=== PATIENT | male | born 1970 | race Caucasian/White ===

== ENCOUNTER 2017-02-20 14:37 | Observation (INO) | payer MEDICARE, OTHER ==
[2017-02-20] MEDS ORDERED: SODIUM CHLORIDE 0.9% 1,000 ML IV ONE (15:27)
[2017-02-20 16:17] LABS: Glucose,Whole Blood 100 mg/dL (75-99)
[2017-02-20 16:25] LABS: Basophils # (A) 0.1 k/uL (0-0.2); Basophils % (A) 1 %; CH 32.9; CHCM 35.2; Eosinophils # (A) 0.1 k/uL (0-0.7); Eosinophils % (A) 1 %; HCT 41.8 % (39.0-53.0); HDW 2.26; HGB 14.7 gm/dL (13.0-17.5); Luc # (Auto) 0.25; Luc % (Auto) 4; Lymphocytes # (A) 1.8 k/uL (1.0-4.8); Lymphocytes % (A) 28 %; MCH 32.9 pg (25.0-35.0); MCHC 35.1 g/dL (31.0-37.0); MCV 93.6 fL (80.0-100.0); Mean Platelet Volume 8.1; Monocytes # (A) 0.6 k/uL (0-1.0); Monocytes % (A) 9 %; Neutrophils # (A) 3.7 k/uL (1.3-7.7); Neutrophils % (A) 58 %; RBC 4.46 m/uL (4.30-5.90); RDW 13.2 % (11.5-15.5); WBC 6.4 k/uL (3.8-10.6); WBC (Perox) 6.12
[2017-02-20 16:31] LABS: ALT 33 U/L (21-72); AST 17 U/L (17-59); Alkaline Phosphatase 92 U/L (38-126); Anion Gap 12 mmol/L; Blood Urea Nitrogen 12 mg/dL (9-20); Calcium 9.3 mg/dL (8.4-10.2); Carbon Dioxide 25 mmol/L (22-30); Chloride 106 mmol/L (98-107); Glucose 104 mg/dL (74-99); Magnesium 2.2 mg/dL (1.6-2.3); Non-African American GFR(MDRD) >60 (>60 ml/min/1.73 sqM); Potassium 4.1 mmol/L (3.5-5.1); Sodium 143 mmol/L (137-145); Total Bilirubin 0.4 mg/dL (0.2-1.3)
--- NOTE | 2017-02-20 16:38 | XR ---
EXAMINATION TYPE: XR chest 2V DATE OF EXAM: 02/20/2017 COMPARISON: 10/16/2015 HISTORY: Altered mental status. Disabled. TECHNIQUE: Frontal and lateral views of the chest are obtained. FINDINGS: There is no heart failure nor confluent pneumonic infiltrate. There are no hilar masses. T here are chest leads. There is no sign of pleural effusion. IMPRESSION: No active cardiopulmonary disease. Normal heart. No change.
--- NOTE | 2017-02-20 17:27 | CT ---
EXAMINATION TYPE: CT brain wo con DATE OF EXAM: 02/20/2017 COMPARISON: 10/18/2015 HISTORY: Patient poor historian. Patient is lethargic. CT DLP: 773.8 mGycm. Automated Exposure Control for Dose Reduction was Utilized. TECHNIQUE: CT scan of the head is performed without contrast. FINDINGS: Ventricles of normal size. There is no mass effect nor midline shift. There is no sign of i ntracranial hemorrhage. The calvarium is intact. IMPRESSION: Negative CT scan of the brain. No change..
[2017-02-20 18:04] LABS: Appearance,Urine Clear (Clear); Bilirubin,Urine Negative (Negative); Glucose,Urine (UA) Negative (Negative); Ketones,Urine Negative (Negative); Leukocyte Esterase,Urine Negative (Negative); Nitrite,Urine Negative (Negative); PH, Urine 6.5 (5.0-8.0); Protein,Urine Negative (Negative); Specific Gravity,Urine 1.014 (1.001-1.035); UA Billing (MACRO vs. MICRO) CHEM; Urobilinogen,Urine <2.0 mg/dL (<2.0)
[2017-02-20] MEDS ORDERED: NALOXONE 0.4 MG/ML 1 ML VIAL IV PRN (18:19)
--- NOTE | 2017-02-20 18:35 | ED ---
Altered Mental Status HPI - General Chief Complaint: Altered Mental Status Stated Complaint: lethargic Time Seen by Provider: 02/20/17 15:21 Source: family, RN notes reviewed Mode of arrival: wheelchair Limitations: no limitations - History of Present Illness Initial Comments: 47-year-old male with past medical history of autism presents with his sister who is his guardian chief complaint of lethargy and generalized weakness. Patient has had a baseline tremor and his sister also noted that his tongue was very dry. The symptoms of worsened over the past 2 days. Patient's sister denies any symptoms of vomiting or diarrhea. There is no history of fever. Patient is nonverbal, according to his sister he does normally have some level of communication. - Related Data Home Medications Medication Instructions Recorded Confirmed Clotrimazole/Betameth Cream 1 applic TOPICAL BID PRN 02/20/17 02/20/17 [Lotrisone] Docusate [Colace] 100 mg PO HS PRN 02/20/17 02/20/17 Fiber Poweder 10 ml PO DAILY 02/20/17 02/20/17 Rosuvastatin [Crestor] 10 mg PO DAILY 02/20/17 02/20/17 risperiDONE [RisperDAL] 2 mg PO HS 02/20/17 02/20/17 Previous Rx's Medication Instructions Recorded LORazepam [Ativan] 1 mg PO BID #14 tab 10/22/15 Allergies Allergy/AdvReac Type Severity Reaction Status Date / Time No Known Allergies Allergy Verified 02/20/17 16:55 Review of Systems ROS Statement: Those systems with pertinent positive or pertinent negative responses have been documented in the HPI. Limitations: ROS unobtainable due to patients medical condition Past Medical History Past Medical History: No Reported History Additional Past Medical History / Comment(s): HIGH CHOLESTEROL; SCOLIOSIS, developmentally disabled, autism History of Any Multi-Drug Resistant Organisms: None Reported Additional Past Surgical History / Comment(s): HEMORROIDECTOMY Past Anesthesia/Blood Transfusion Reactions: No Reported Reaction Past Psychological History: Anxiety Smoking Status: Never smoker Past Alcohol Use History: None Reported Past Drug Use History: None Reported - Past Family History Mother Family Medical History: Diabetes Mellitus Father Family Medical History: Cancer Additional Family Medical History / Comment(s): BONE AND LIVER General Exam Limitations: no limitations General appearance: lethargic Head exam: Present: atraumatic, normocephalic Eye exam: Present: normal appearance, PERRL ENT exam: Present: mucous membranes dry, other (Tongue is very dry and cracked) Neck exam: Absent: meningismus Respiratory exam: Present: normal lung sounds bilaterally. Absent: respiratory distress Cardiovascular Exam: Present: normal rhythm, tachycardia GI/Abdominal exam: Present: soft. Absent: distended, tenderness Extremities exam: Present: normal capillary refill. Absent: pedal edema Neurological exam: Absent: motor sensory deficit (There is no focal neurologic deficit, strength in all 4 extremities is 5 out of 5) Psychiatric exam: Present: depressed, flat affect Skin exam: Present: warm, dry Course Vital Signs 02/20/17 02/20/17 15:06 17:31 Temperature 97.6 F 99.1 F Pulse Rate 101 H 100 Respiratory 16 18 Rate Blood Pressure 149/84 151/83 O2 Sat by Pulse 96 97 Oximetry Medical Decision Making - Medical Decision Making 47-year-old male with history of autism presents with a 2 day history of lethargy, tremor, and dry cracked tongue. History is obtained from the patient' s sister was also his guardian. On examination the patient does appear dehydrated, mucous membranes are very dry, heart rate 100. Laboratory studies including CBC, CMP, TSH, urinalysis are all unremarkable. Chest x-ray shows no acute process, head CT is negative for acute intracranial process. EKG shows normal sinus rhythm, ventricular rate 97, LA interval 134, QS duration 82, QTC 464. Patient is given 1 L normal saline bolus. Reevaluation, patient's sister states he has not improved. He will be brought in for fluid hydration, and repeat evaluation. Diagnosis: generalized weakness, dehydration - Lab Data Result diagrams: 02/20/17 16:03 02/20/17 16:03 Lab Results 02/20/17 02/20/17 02/20/17 Range/Units 16:03 16:03 16:03 WBC 6.4 (3.8-10.6) k/uL RBC 4.46 (4.30-5.90) m/uL Hgb 14.7 (13.0-17.5) gm/dL Hct 41.8 (39.0-53.0) % MCV 93.6 (80.0-100.0) fL MCH 32.9 (25.0-35.0) pg MCHC 35.1 (31.0-37.0) g/dL RDW 13.2 (11.5-15.5) % Plt Count 197 (150-450) k/uL Neutrophils % 58 % Lymphocytes % 28 % Monocytes % 9 % Eosinophils % 1 % Basophils % 1 % Neutrophils # 3.7 (1.3-7.7) k/uL Lymphocytes # 1.8 (1.0-4.8) k/uL Monocytes # 0.6 (0-1.0) k/uL Eosinophils # 0.1 (0-0.7) k/uL Basophils # 0.1 (0-0.2) k/uL Sodium 143 (137-145) mmol/L Potassium 4.1 (3.5-5.1) mmol/L Chloride 106 (98-107) mmol/L Carbon Dioxide 25 (22-30) mmol/L Anion Gap 12 mmol/L BUN 12 (9-20) mg/dL Creatinine 0.80 (0.66-1.25) mg/dL Est GFR (MDRD) Af Amer >60 (>60 ml/min/1.73 sqM) Est GFR (MDRD) Non-Af >60 (>60 ml/min/1.73 sqM) Glucose 104 H (74-99) mg/dL POC Glucose (mg/dL) (75-99) mg/dL POC Glu Merchandise Collector ID Plasma Lactic Acid Gilberto 0.7 (0.7-2.0) mmol/L Calcium 9.3 (8.4-10.2) mg/dL Magnesium 2.2 (1.6-2.3) mg/dL Total Bilirubin 0.4 (0.2-1.3) mg/dL AST 17 (17-59) U/L ALT 33 (21-72) U/L Alkaline Phosphatase 92 (38-126) U/L Ammonia 12 (<30) umol/L Total Protein 7.0 (6.3-8.2) g/dL Albumin 4.1 (3.5-5.0) g/dL TSH 1.050 (0.465-4.680) mIU/L Urine Color Urine Appearance (Clear) Urine pH (5.0-8.0) Ur Specific Volin (1.001-1.035) Urine Protein (Negative) Urine Glucose (UA) (Negative) Urine Ketones (Negative) Urine Blood (Negative) Urine Nitrite (Negative) Urine Bilirubin (Negative) Urine Urobilinogen (<2.0) mg/dL Ur Leukocyte Esterase (Negative) 02/20/17 02/20/17 Range/Units 16:16 17:45 WBC (3.8-10.6) k/uL RBC (4.30-5.90) m/uL Hgb (13.0-17.5) gm/dL Hct (39.0-53.0) % MCV (80.0-100.0) fL MCH (25.0-35.0) pg MCHC (31.0-37.0) g/dL RDW (11.5-15.5) % Plt Count (150-450) k/uL Neutrophils % % Lymphocytes % % Monocytes % % Eosinophils % % Basophils % % Neutrophils # (1.3-7.7) k/uL Lymphocytes # (1.0-4.8) k/uL Monocytes # (0-1.0) k/uL Eosinophils # (0-0.7) k/uL Basophils # (0-0.2) k/uL Sodium (137-145) mmol/L Potassium (3.5-5.1) mmol/L Chloride (98-107) mmol/L Carbon Dioxide (22-30) mmol/L Anion Gap mmol/L BUN (9-20) mg/dL Creatinine (0.66-1.25) mg/dL Est GFR (MDRD) Af Amer (>60 ml/min/1.73 sqM) Est GFR (MDRD) Non-Af (>60 ml/min/1.73 sqM) Glucose (74-99) mg/dL POC Glucose (mg/dL) 100 H (75-99) mg/dL POC Glu Merchandise Collector ID Annette Mark Plasma Lactic Acid Gilberto (0.7-2.0) mmol/L Calcium (8.4-10.2) mg/dL Magnesium (1.6-2.3) mg/dL Total Bilirubin (0.2-1.3) mg/dL AST (17-59) U/L ALT (21-72) U/L Alkaline Phosphatase (38-126) U/L Ammonia (<30) umol/L Total Protein (6.3-8.2) g/dL Albumin (3.5-5.0) g/dL TSH (0.465-4.680) mIU/L Urine Color Yellow Urine Appearance Clear (Clear) Urine pH 6.5 (5.0-8.0) Ur Specific Volin 1.014 (1.001-1.035) Urine Protein Negative (Negative) Urine Glucose (UA) Negative (Negative) Urine Ketones Negative (Negative) Urine Blood Negative (Negative) Urine Nitrite Negative (Negative) Urine Bilirubin Negative (Negative) Urine Urobilinogen <2.0 (<2.0) mg/dL Ur Leukocyte Esterase Negative (Negative) Disposition Clinical Impression: Altered mental status, unspecified, Dehydration Disposition: ADMITTED IP TO THIS [facility] Condition: Stable Referrals: Jef Pires DO [Primary Care Provider] - 1-2 days Decision to Admit Reason: Admit from EC Decision Date: 02/20/17 Decision Time: 18:35
[2017-02-20 19:50] VITALS: RESP 16
[2017-02-20 20:49] VITALS: BMI 25.8
[2017-02-20] MEDS: DEXTROSE 5%-0.45% NACL 1,000 ML IV SCH (20:56)
[2017-02-20] MEDS ORDERED: risperiDONE 2 MG TAB PO SCH (21:00)
[2017-02-20] MEDS: LORazepam 1 MG TAB PO SCH (21:00)
[2017-02-20 22:59] LABS: Glucose,Whole Blood 110 mg/dL (75-99)
[2017-02-21] MEDS: DEXTROSE 5%-0.45% NACL 1,000 ML IV SCH (07:18)
[2017-02-21 08:52] VITALS: TEMP 98.3
[2017-02-21] MEDS: LORazepam 1 MG TAB PO SCH (08:54)
--- NOTE | 2017-02-21 10:14 | P.DS ---
Providers Date of admission: 02/20/17 18:19 Attending physician: Jose L Blankenship Primary care physician: Jef Pires [facility] Hospital Course: Please refer to HPI Patient Condition at Discharge: Stable Plan - Discharge Summary New Discharge Prescriptions: No Action LORazepam [Ativan] 1 mg PO BID #14 tab risperiDONE [RisperDAL] 2 mg PO HS Rosuvastatin [Crestor] 10 mg PO DAILY Clotrimazole/Betameth Cream [Lotrisone] 1 applic TOPICAL BID PRN PRN Reason: Rash Docusate [Colace] 100 mg PO HS PRN PRN Reason: Constipation Fiber Poweder 10 ml PO DAILY Discharge Medication List LORazepam [Ativan] 1 mg PO BID #14 tab 10/22/15 [Rx] Clotrimazole/Betameth Cream [Lotrisone] 1 applic TOPICAL BID PRN 02/20/17 [ History] Docusate [Colace] 100 mg PO HS PRN 02/20/17 [History] Fiber Poweder 10 ml PO DAILY 02/20/17 [History] Rosuvastatin [Crestor] 10 mg PO DAILY 02/20/17 [History] risperiDONE [RisperDAL] 2 mg PO HS 02/20/17 [History] Follow up Appointment(s)/Referral(s): Jef Pires DO [Primary Care Provider] - 3 Days
--- NOTE | 2017-02-21 10:14 | P.HPIM ---
History of Present Illness 47-year-old male with past medical history of autism presents with his sister who is his guardian chief complaint of lethargy and generalized weakness. Patient has had a baseline tremor and his sister also noted that his tongue was very dry. The symptoms of worsened over the past 2 days. Patient's sister denies any symptoms of vomiting or diarrhea. There is no history of fever. Patient is nonverbal, according to his sister he does normally have some level of communication. Patient denied any symptoms at this point of time. And the patient unremarkable and workup for sepsis with the UA, chest x-ray all of which are negative. TSH is essentially within normal limits. He was evaluated by physical therapy and occupational therapy in the recommending a place where he will he can have 24 /7 care. All the workup is essentially negative and patient will be discharged back to longterm with 24/ 7 care. Patient will follow with Dr. Jef Pires as an outpatient. 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 per legal gardian History of Any Multi-Drug Resistant Organisms: None Reported Additional Past Surgical History / Comment(s): HEMORROIDECTOMY Past Anesthesia/Blood Transfusion Reactions: No Reported Reaction Past Psychological History: Anxiety Additional Psychological History / Comment(s): AUTISM Smoking Status: Never smoker Past Alcohol Use History: None Reported Past Drug Use History: None Reported - Past Family History Mother Family Medical History: Diabetes Mellitus Father Family Medical History: Cancer Additional Family Medical History / Comment(s): BONE AND LIVER Medications and Allergies Home Medications Medication Instructions Recorded Confirmed Type Clotrimazole/Betameth Cream 1 applic TOPICAL BID PRN 02/20/17 02/20/17 History [Lotrisone] Docusate [Colace] 100 mg PO HS PRN 02/20/17 02/20/17 History Fiber Poweder 10 ml PO DAILY 02/20/17 02/20/17 History Rosuvastatin [Crestor] 10 mg PO DAILY 02/20/17 02/20/17 History risperiDONE [RisperDAL] 2 mg PO HS 02/20/17 02/20/17 History Allergies Allergy/AdvReac Type Severity Reaction Status Date / Time No Known Allergies Allergy Verified 02/20/17 16:55 Physical Exam Vitals: Vital Signs Temp Pulse Pulse Resp BP BP Pulse Ox 02/21/17 07:00 98.3 F 98 16 136/84 97 02/20/17 22:50 98.5 F 107 H 95 02/20/17 20:24 97.9 F 70 16 118/70 98 02/20/17 20:00 99.1 F 106 H 16 137/77 95 02/20/17 19:48 97.9 F 67 16 128/70 98 02/20/17 17:31 99.1 F 100 18 151/83 97 02/20/17 15:06 97.6 F 101 H 16 149/84 96 Intake and Output 02/20/17 02/21/17 02/21/17 22:59 06:59 14:59 Intake Total 1400 Output Total 200 Balance 1200 Intake: Intake, IV Titration 1000 Amount Sodium Chloride 0.9% 1, 1000 000 ml @ 999 mls/hr IV . Q1H1M ONE Rx#:[id number] Oral 400 Output: Urine 200 Straight 200 Other: Voiding Method Toilet Toilet # Voids 2 Weight 81.647 kg PHYSICAL EXAMINATION: GENERAL: The patient is alert and unable to assess orientation, not in any acute distress. Well developed, well nourished. HEENT: Pupils are round and equally reacting to light. EOMI. No scleral icterus. No conjunctival pallor. Normocephalic, atraumatic. No pharyngeal erythema. No thyromegaly. CARDIOVASCULAR: S1 and S2 present. No murmurs, rubs, or gallops. PULMONARY: Chest is clear to auscultation, no wheezing or crackles. ABDOMEN: Soft, nontender, nondistended, normoactive bowel sounds. No palpable organomegaly. MUSCULOSKELETAL: No joint swelling or deformity. EXTREMITIES: No cyanosis, clubbing, or pedal edema. NEUROLOGICAL: Gross neurological examination did not reveal any new focal deficits. Patient does have generalized weakness which appears to be chronic SKIN: No rashes. Results CBC & Chem 7: 02/20/17 16:03 02/20/17 16:03 Labs: Abnormal Lab Results - Last 24 Hours (Table) 02/20/17 02/20/17 02/20/17 Range/Units 16:03 16:16 22:38 Glucose 104 H (74-99) mg/dL POC Glucose (mg/dL) 100 H 110 H (75-99) mg/dL Thrombosis Risk Factor Assmnt - Choose All That Apply Any of the Below Risk Factors Present?: Yes Each Factor Represents 1 point: Age 41-60 years Other Risk Factors: No Thrombosis Risk Factor Assessment Total Risk Factor Score: 1 Thrombosis Risk Factor Assessment Level: Low Risk Assessment and Plan Plan: #1 generalized weakness and deconditioning: All the workup as mentioned above is negative. Patient will be discharged back to his longterm with [address] [place] [address]. #2 autism: Patient is on antipsychotic medications which we continued and his autism medications. #3 hyperlipidemia: Continue with statin.
[2017-02-21 11:53] VITALS: BP 121/73; PULSE 100
[2017-02-21 11:56] LABS: Glucose,Whole Blood 114 mg/dL (75-99)
== END 2017-02-21 12:00 | disposition home health service (06) ==
LOC: EC 14:37 → 5MS5E 18:19
PROVIDERS: ADMIT Internal Medicine; ATTEND Internal Medicine
DX: R41.82 Altered mental status, unspecified (principal); E86.0 Dehydration; F84.0 Autistic disorder; E78.5 Hyperlipidemia, unspecified; R25.1 Tremor, unspecified; E78.00 Pure hypercholesterolemia, unspecified; M41.9 Scoliosis, unspecified; F41.9 Anxiety disorder, unspecified; Z79.899 Other long term (current) drug therapy; Z83.3 Family history of diabetes mellitus
CPT/HCPCS: 96360 ×2; 99285 ×2; 36415; 93005; 97162; 80053; 84443; 82140; 83605; 83735; 85025; 81003; 71020; 70450; G0378 ×2

== ENCOUNTER → 2017-02-26 | Outpatient (CLI) | payer MEDICARE, OTHER | END | disposition home or self-care (01) | LOC: LABWHC1 15:58 | PROVIDERS: ATTEND Psychiatry & Neurology Psychiatry | DX: Z51.81 Encounter for therapeutic drug level monitoring (principal); Z79.899 Other long term (current) drug therapy | CPT/HCPCS: 36415; 82550 ==

== ENCOUNTER 2018-03-27 21:28 | Day surgery (SDC) | payer MEDICARE, OTHER ==
--- NOTE | 2018-03-27 22:16 | ED ---
General Adult HPI - General Chief complaint: Nausea/Vomiting/Diarrhea Stated complaint: vomiting Time Seen by Provider: 03/27/18 22:06 Source: patient, RN notes reviewed, old records reviewed, Caregiver Mode of arrival: ambulatory Limitations: no limitations - History of Present Illness Initial comments: 48-year-old male says from [facility] with staff member. Patient had an episode of choking earlier while eating dinner. According to staff he did have an episode of cyanosis associated with this. Heimlich maneuver was performed and the patient was able to cough up several small pieces of meat. He did have several episodes of coughing and seemed to be vomiting up some phlegm. Since this episode he has had some water to drink. Patient has history of autism and is unable to contribute to the history. - Related Data Home Medications Medication Instructions Recorded Confirmed Atorvastatin Calcium [Lipitor] 20 mg PO HS 03/27/18 03/27/18 Nystatin 15 gm TP 03/27/18 OLANZapine 7.5 mg PO 03/27/18 Polyethylene Glycol 3350 [Clearlax] 17 gm PO 03/27/18 Sennosides [Senna] 8.6 mg PO 03/27/18 Allergies Allergy/AdvReac Type Severity Reaction Status Date / Time No Known Allergies Allergy Verified 02/20/17 16:55 Review of Systems ROS Statement: Those systems with pertinent positive or pertinent negative responses have been documented in the HPI. ROS Other: All systems not noted in ROS Statement are negative. 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 per legal gardian History of Any Multi-Drug Resistant Organisms: None Reported Additional Past Surgical History / Comment(s): HEMORROIDECTOMY Past Anesthesia/Blood Transfusion Reactions: No Reported Reaction Past Psychological History: Anxiety Smoking Status: Never smoker Past Alcohol Use History: None Reported Past Drug Use History: None Reported - Past Family History Mother Family Medical History: Diabetes Mellitus Father Family Medical History: Cancer Additional Family Medical History / Comment(s): BONE AND LIVER General Exam Limitations: no limitations General appearance: alert, in no apparent distress Head exam: Present: atraumatic, normocephalic Eye exam: Present: normal appearance, PERRL ENT exam: Present: normal exam, mucous membranes dry Neck exam: Present: normal inspection. Absent: tenderness, meningismus Respiratory exam: Present: normal lung sounds bilaterally, stridor. Absent: respiratory distress, wheezes Cardiovascular Exam: Present: regular rate, normal rhythm GI/Abdominal exam: Present: soft. Absent: distended, tenderness Extremities exam: Present: normal inspection, normal capillary refill. Absent: pedal edema Neurological exam: Present: alert. Absent: motor sensory deficit Skin exam: Present: warm, dry, intact. Absent: cyanosis, diaphoretic Course Vital Signs 03/27/18 03/27/18 03/28/18 21:44 23:23 00:07 Temperature 97.8 F 97.7 F Pulse Rate 106 H 94 Respiratory 20 16 16 Rate Blood Pressure 130/93 133/82 O2 Sat by Pulse 93 L 94 L Oximetry 03/28/18 03:13 Temperature Pulse Rate 94 Respiratory 18 Rate Blood Pressure 147/64 O2 Sat by Pulse 98 Oximetry - Reevaluation(s) Reevaluation #1: 03/28/18 02:27 Case discussed with gastroenterology, will plan endoscopy at 6:45 AM. Medical Decision Making - Medical Decision Making 48-year-old male with choking episode, concern for either aspiration or esophageal foreign body. Chest x-ray negative for airspace disease. CT is obtained, does show distal esophageal foreign body with dilated upper esophagus and air-fluid level. Case is discussed with gastroenterology, will plan endoscopy at 6:45 AM. - Lab Data Result diagrams: 03/27/18 22:45 03/27/18 22:45 Lab Results 03/27/18 03/27/18 03/27/18 Range/Units 22:45 22:45 23:30 WBC 14.4 H (3.8-10.6) k/uL RBC 5.13 (4.30-5.90) m/uL Hgb 16.3 (13.0-17.5) gm/dL Hct 47.3 (39.0-53.0) % MCV 92.2 (80.0-100.0) fL MCH 31.7 (25.0-35.0) pg MCHC 34.4 (31.0-37.0) g/dL RDW 12.6 (11.5-15.5) % Plt Count 252 (150-450) k/uL Neutrophils % 86 % Lymphocytes % 9 % Monocytes % 4 % Eosinophils % 0 % Basophils % 0 % Neutrophils # 12.3 H (1.3-7.7) k/uL Lymphocytes # 1.2 (1.0-4.8) k/uL Monocytes # 0.6 (0-1.0) k/uL Eosinophils # 0.1 (0-0.7) k/uL Basophils # 0.0 (0-0.2) k/uL Sodium 143 (137-145) mmol/L Potassium 4.4 (3.5-5.1) mmol/L Chloride 111 H (98-107) mmol/L Carbon Dioxide 21 L (22-30) mmol/L Anion Gap 11 mmol/L BUN 18 (9-20) mg/dL Creatinine 1.00 (0.66-1.25) mg/dL Est GFR (CKD-EPI)AfAm >90 (>60 ml/min/1.73 sqM) Est GFR (CKD-EPI)NonAf 89 (>60 ml/min/1.73 sqM) Glucose 132 H (74-99) mg/dL Plasma Lactic Acid Gilberto 1.3 (0.7-2.0) mmol/L Calcium 9.7 (8.4-10.2) mg/dL Total Bilirubin 0.6 (0.2-1.3) mg/dL AST 22 (17-59) U/L ALT 35 (21-72) U/L Alkaline Phosphatase 118 (38-126) U/L Total Protein 8.1 (6.3-8.2) g/dL Albumin 4.6 (3.5-5.0) g/dL Disposition Clinical Impression: Esophageal foreign body Disposition: ADMITTED IP TO THIS [facility] Condition: Stable Is patient prescribed a controlled substance at d/c from ED?: No Referrals: Derek Sousa MD [Primary Care Provider] - 1-2 days Decision to Admit Reason: Admit from EC Decision Date: 03/28/18 Decision Time: 06:08
[2018-03-27 23:03] LABS: Basophils % (A) 0 %; Eosinophils # (A) 0.1 k/uL (0-0.7); Eosinophils % (A) 0 %; HCT 47.3 % (39.0-53.0); HGB 16.3 gm/dL (13.0-17.5); Lymphocytes # (A) 1.2 k/uL (1.0-4.8); Lymphocytes % (A) 9 %; MCH 31.7 pg (25.0-35.0); MCHC 34.4 g/dL (31.0-37.0); MCV 92.2 fL (80.0-100.0); Mean Platelet Volume 7.7; Monocytes # (A) 0.6 k/uL (0-1.0); Monocytes % (A) 4 %; Neutrophils # (A) 12.3 k/uL (1.3-7.7); Neutrophils % (A) 86 %; Platelet Count 252 k/uL (150-450); RBC 5.13 m/uL (4.30-5.90); RDW 12.6 % (11.5-15.5); WBC 14.4 k/uL (3.8-10.6)
[2018-03-27 23:18] LABS: ALT 35 U/L (21-72); AST 22 U/L (17-59); Albumin 4.6 g/dL (3.5-5.0); Alkaline Phosphatase 118 U/L (38-126); Anion Gap 11 mmol/L; Blood Urea Nitrogen 18 mg/dL (9-20); Calcium 9.7 mg/dL (8.4-10.2); Carbon Dioxide 21 mmol/L (22-30); Chloride 111 mmol/L (98-107); Glucose 132 mg/dL (74-99); Potassium 4.4 mmol/L (3.5-5.1); Sodium 143 mmol/L (137-145); Total Bilirubin 0.6 mg/dL (0.2-1.3); Total Protein 8.1 g/dL (6.3-8.2)
[2018-03-27] MEDS ORDERED: AMPICILLIN-SULBACTAM 3 GM in SODIUM CHLORIDE 0.9% 100 ML IVPB STA (23:23)
--- NOTE | 2018-03-28 00:48 | XR ---
EXAMINATION TYPE: XR chest 2V DATE OF EXAM: 03/28/2018 COMPARISON: 02/20/2017 HISTORY: Vomiting TECHNIQUE: Frontal and lateral views of the chest are obtained. FINDINGS: Heart and mediastinum are normal. Lungs are clear. Costophrenic angles are clear. The bony thorax appears intact. IMPRESSION: No active cardiopulmonary disease. Normal heart. No change.
[2018-03-28] MEDS ORDERED: GLUCAGON 1 MG/ML VIAL IVP STA (00:58)
--- NOTE | 2018-03-28 01:42 | CT ---
EXAMINATION TYPE: CT chest wo con DATE OF EXAM: 03/28/2018 COMPARISON: None HISTORY: Possible esophageal obstruction CT DLP: 459.30 mGycm. Automated Exposure Control for Dose Reduction was Utilized. TECHNIQUE: CT scan of the thorax is performed without IV contrast. FINDINGS: The lungs are clear of consolidation. There is no pleural effusion. Heart size is normal. There is no pericardial effusion. There is a dilated air and fluid-filled esophagus. Esophagus is enlarged down to the gastroesophageal junction. Stomach has normal size. There is no evidence of pneumothorax. Bony thorax is intact. IMPRESSION: Dilated thoracic esophagus with fluid. This is suggestive of distal esophageal obstructio n. Nature of obstruction is not demonstrated on this exam with no contrast. If there is persisting cl inical indication esophagram with barium would be useful to show the distal esophagus to better advan tage.
[2018-03-28] MEDS ORDERED: NALOXONE 0.4 MG/ML 1 ML VIAL IV PRN (06:10)
[2018-03-28] MEDS ORDERED: SODIUM CHLORIDE 0.9% 1,000 ML IV ONE (06:12)
[2018-03-28] MEDS ORDERED: LIDOCAINE 1% INJ 10MG/ML (20 ML MDV) ONE ×2 (07:00→09:00)
[2018-03-28] MEDS ORDERED: PROPOFOL 10 MG/ML 20 ML VIAL IV ONE ×2 (07:00→09:00)
[2018-03-28 07:05] VITALS: TEMP 97.1
--- NOTE | 2018-03-28 07:08 | P.CONS ---
History of Present Illness - Reason for Consult Consult date: 03/28/18 Foreign body Requesting physician: Derek Sousa - Chief Complaint Food stuck in esophagus - History of Present Illness The patient is a 48-year-old male with a known history of scoliosis and severe autism who lives in a long term and was brought to the emergency room for evaluation after choking while eating dinner this evening. The patient was eating ribs and Mayco sprouts when he had an episode of choking. According to documentation the patient became cyanotic and the Heimlich removal was performed. In the emergency department history provided was limited so a computed tomography scan was performed showed a fluid-filled esophagus suggestive of a foreign body. The patient had multiple episodes of coughing productive of phlegm. In the emergency department he was unable to tolerate his secretions. Per the patient's sister and legal guardian he has not had episodes of dysphagia or food sitting in the past. She reports that at the facility states that the food is chopped small leading and he has not required a hospital visit or similar episode in the past. No history of reflux. Past endoscopic history: No prior history of endoscopy. Past medical history: Scoliosis, autism, hyperlipidemia, anxiety Past surgical history: Hemorrhoidectomy Social history: No tobacco or alcohol use, the patient lives in a long term. Family history: Significant for diabetes mellitus in the patient's mother Review of Systems REVIEW OF SYSTEMS: Taken from the patient's sister and legal guardian due to patient's underlying autism and inability to provide a history on his own. CARDIOPULMONARY: No chest pain or shortness of breath. GENITOURINARY: No dysuria or hematuria. MUSCULOSKELETAL: No weakness reported. SKIN: Denies any new rashes or lesions. PSYCHIATRIC: Denies any depression or anxiety. NEUROLOGY: Denies headache, denies any new focal deficits. EARS: No tinnitus or new hearing loss. NOSE: No discharge. EYES: No pain in eyes or change in vision. CONSTITUTIONAL: No recent weight loss. No fever, chills, night sweats. Past Medical History Past Medical History: Hyperlipidemia Additional Past Medical History / Comment(s): SCOLIOSIS, developmentally disabled, autism, mentality of a 6 year old per legal gardian History of Any Multi-Drug Resistant Organisms: None Reported Additional Past Surgical History / Comment(s): HEMORROIDECTOMY Past Anesthesia/Blood Transfusion Reactions: No Reported Reaction Past Psychological History: Anxiety Smoking Status: Never smoker Past Alcohol Use History: None Reported Past Drug Use History: None Reported - Past Family History Mother Family Medical History: Diabetes Mellitus Father Family Medical History: Cancer Additional Family Medical History / Comment(s): BONE AND LIVER Medications and Allergies Home Medications Medication Instructions Recorded Confirmed Type Atorvastatin Calcium [Lipitor] 20 mg PO HS 03/27/18 03/28/18 History Nystatin 15 gm TP BID 03/27/18 03/28/18 History OLANZapine 7.5 mg PO DAILY 03/27/18 03/28/18 History Polyethylene Glycol 3350 [Clearlax] 17 gm PO DAILY 03/27/18 03/28/18 History Sennosides [Senna] 8.6 mg PO HS 03/27/18 03/28/18 History Allergies Allergy/AdvReac Type Severity Reaction Status Date / Time No Known Allergies Allergy Verified 02/20/17 16:55 Physical Exam Vitals: Vital Signs Temp Pulse Resp BP Pulse Ox 03/28/18 06:17 120 H 18 148/98 95 03/28/18 03:13 94 18 147/64 98 03/28/18 00:07 97.7 F 94 16 133/82 94 L 03/27/18 23:23 16 03/27/18 21:44 97.8 F 106 H 20 130/93 93 L Intake and Output 03/27/18 03/27/18 03/28/18 14:59 22:59 06:59 Other: Weight 82.554 kg On physical examination, patient appears comfortable in no apparent distress. HEENT: Unremarkable. Conjunctivae pink. Sclerae anicteric.No conjunctival injection. Oral cavity no lesions. NECK: Trachea midline, no gross abnormalities. CHEST: Clear to auscultation. HEART: Regular rate and rhythm. ABDOMEN: Soft. Bowel sounds are positive. No organomegaly. EXTREMITIES: No pedal edema. SKIN: No rashes. NEUROLOGIC: Alert and oriented. No focal deficits. Results CBC & Chem 7: 03/27/18 22:45 03/27/18 22:45 Labs: Abnormal Lab Results - Last 24 Hours (Table) 03/27/18 03/27/18 Range/Units 22:45 22:45 WBC 14.4 H (3.8-10.6) k/uL Neutrophils # 12.3 H (1.3-7.7) k/uL Chloride 111 H (98-107) mmol/L Carbon Dioxide 21 L (22-30) mmol/L Glucose 132 H (74-99) mg/dL CT scan - chest: report reviewed (Fluid-filled esophagus suggestive of foreign body obstruction.) Assessment and Plan (1) Esophageal foreign body Narrative/Plan: This is a 48-year-old male without any previous history of dysphagia or food impaction presents after eating ribs and brussel sprouts during which she developed an episode of cyanosis and coughing and was subsequently unable to tolerate secretions. The patient has no prior history of dysphagia or food impaction, no history of asthma or ALLERGIES. In the emergency department a computed tomography scan was performed due to the limited history which was able to be obtained which showed a fluid-filled esophagus with suggestion of foreign body. Current Visit: Yes Status: Acute Code(s): T18.108A - UNSP FOREIGN BODY IN ESOPHAGUS CAUSING OTH INJURY, INIT SNOMED Code(s): 67152291 Plan: Nothing by mouth Plan for emergent EGD with foreign body removal Need for dilation, biopsies and PPI therapy will be decided during the procedure If stable patient will be okay for discharge home and follow up with gastroenterology
[2018-03-28] MEDS ORDERED: IV FLUID CONTINUATION 300 ML IV ONE (07:13)
[2018-03-28] MEDS ORDERED: LACTATED RINGERS 1,000 ML IV ONE ×2 (07:55→11:00)
--- NOTE | 2018-03-28 08:45 | XR ---
EXAMINATION TYPE: XR chest 1V portable DATE OF EXAM: 03/28/2018 Comparison: 03/28/2018, earlier today Clinical History: 48-year-old male, pain, food bolus aspiration. Findings: Heart normal size. Aorta within normal limits. Mild diffuse interstitial prominence persists. Peribro nchial cuffing is also noted. Increasing focal patchy left basilar opacity. There may be a trace left effusion now. Impression: New patchy left basilar atelectasis or developing infiltrate and possible new trace left pleural effu garett.
[2018-03-28] MEDS ORDERED: SUCCINYLCHOLINE CHLORIDE 100 MG/5 ML SYR IV ONE (09:00)
[2018-03-28] MEDS ORDERED: fentaNYL (PF) 50 MCG/ML 2 ML AMP ONE (09:00)
[2018-03-28] MEDS ORDERED: MEPERIDINE 50 MG/ML SYRINGE IVP ONE (10:00)
--- NOTE | 2018-03-28 10:44 | P.PCN ---
Date of Procedure: 03/28/18 Description of Procedure: BRIEF HISTORY: Patient is a 48-year-old, pleasant, male with a known history of scoliosis, autism and constipation who presented to the hospital with complaints of food stuck in his esophagus. The patient had been eating ribs and Brussel sprouts at his skilled nursing when the event occurred. Per the patient' s sister and ago guardian this type of present has not occurred in the past. No history of dysphagia or reflux disease. PROCEDURE PERFORMED: Esophagogastroduodenoscopy with foreign body removal. PREOPERATIVE DIAGNOSIS: Foreign body, food impaction. IV sedation per anesthesia. PROCEDURE: After informed consent was obtained, the patient was brought into the endoscopy unit. IV sedation was administered by Anesthesia under continuous monitoring. Initially the Olympus GIF-180 video endoscope was inserted into the mouth. Esophagus intubated without any difficulty. A copious amount of food was found in the distal esophagus at approximately 35 cm. Multiple attempts were made to gently push the food from the esophagus into the stomach however these were unsuccessful. A rat-toothed forceps within used to remove pieces of the impacted food in a piecemeal spell. At this point the patient oxygen saturation dropped to approximately 85%. At the advisement of the anesthesia team was decided that the patient would be intubated for the remainder of the procedure. The patient was brought to the operating room and intubated. The procedure was resumed. At this time a Duque net was employed to remove some of the debris. Graspers were then used to successfully remove a large piece of the impacted food. At this time the stomach was able to be intubated. The remainder of the food in the esophagus was pushed into the stomach. The GE junction located at approximately 40 cm was noted to be edematous, erythematous likely as a result of the impacted food. Biopsies were taken. The scope was then gradually advanced into the stomach and duodenum and carefully examined. The bulb and the second part of the duodenum appeared normal. The scope at this time was withdrawn to the stomach, adequately insufflated with air, and upon careful examination, mucosa of the antrum, body, cardia and the fundus appeared normal. The food which had been advanced from the esophagus into the stomach was then noted on retroflexion. The scope was then withdrawn into the esophagus. The esophagus appeared tortuous, but otherwise grossly normal. There were no erosions or ulcerations seen and the patient tolerated the procedure well. IMPRESSION: 1. Esophageal food impaction, with successful removal of food. 2. Erythematous, edematous GE junction at approximately 40 cm likely secondary to above-mentioned food impaction, biopsied. 3. Tortuous esophagus RECOMMENDATIONS: The findings of this examination were discussed with the patient and his sister, who acts as his legal guardian. The patient is okay to be discharged home. He should remain on clear liquids today and tomorrow. His diet should then be advanced as tolerated, and he should continue on a chopped diet with fluids taken with food. A prescription was also given for Protonix 40 mg twice a day. The patient should follow-up in the gastroenterology clinic in 2 weeks. Repeat endoscopy in 6-8 weeks for better evaluation of the GE junction and to ensure resolution of changes noted above.
[2018-03-28 10:47] VITALS: RESP 18
[2018-03-28 12:10] VITALS: BP 123/80; PULSE 110
--- NOTE | 2018-03-28 12:11 | P.CNPUL ---
History of Present Illness Consult date: 03/28/18 Requesting physician: Migue Butler Reason for consult: dyspnea, hypoxemia Chief complaint: Food impaction History of present illness: This is a 48-year-old gentleman who resides in a half-way. He has a history of autism, developmental delay, scoliosis, hyperlipidemia. He was brought here to the emergency room last evening after the patient had an episode of choking while eating dinner. He was cyanotic. The Heimlich maneuver was performed and the patient did cough up several small pieces of meat. He did have several episodes of coughing and vomiting up phlegm as well. He was able to tolerate some water following the episode. Chest x-ray showed no evidence of aspiration or other abnormalities. A computed tomography scan of the chest did reveal a dilated thoracic esophagus with fluid suggestive of distal esophageal obstruction. He did undergo EGD earlier today and had undergone a successful removal of food impaction. During the procedure however the patient did develop some hypoxemia and there was concern regarding possible aspiration. He was temporarily intubated and they were able to complete the EGD. He was also found to have erythematous, edematous GE junction and a tortuous esophagus. He was seen and evaluated today in the recovery room by Dr. Reddy. Chest x-ray was reviewed. No clear evidence of aspiration. The patient now has saturations of 97% on room air. Lungs are clear. Review of Systems ROS unobtainable: due to mental status Past Medical History Past Medical History: Hyperlipidemia Additional Past Medical History / Comment(s): SCOLIOSIS, developmentally disabled, autism, mentality of a 6 year old per legal gardian History of Any Multi-Drug Resistant Organisms: None Reported Additional Past Surgical History / Comment(s): HEMORROIDECTOMY Past Anesthesia/Blood Transfusion Reactions: No Reported Reaction Past Psychological History: Anxiety Smoking Status: Never smoker Past Alcohol Use History: None Reported Past Drug Use History: None Reported - Past Family History Mother Family Medical History: Diabetes Mellitus Father Family Medical History: Cancer Additional Family Medical History / Comment(s): BONE AND LIVER Medications and Allergies Home Medications Medication Instructions Recorded Confirmed Type Atorvastatin Calcium [Lipitor] 20 mg PO HS 03/27/18 03/28/18 History Nystatin 15 gm TP BID 03/27/18 03/28/18 History OLANZapine 7.5 mg PO DAILY 03/27/18 03/28/18 History Polyethylene Glycol 3350 [Clearlax] 17 gm PO DAILY 03/27/18 03/28/18 History Sennosides [Senna] 8.6 mg PO HS 03/27/18 03/28/18 History Allergies Allergy/AdvReac Type Severity Reaction Status Date / Time No Known Allergies Allergy Verified 02/20/17 16:55 Physical Exam Vitals: Vital Signs Temp Pulse Pulse Pulse Resp BP BP 03/28/18 11:45 117 H 18 132/87 03/28/18 11:15 100 18 128/73 03/28/18 11:00 94 18 119/74 03/28/18 10:45 95 18 122/78 03/28/18 10:30 88 20 124/76 03/28/18 10:15 87 18 123/72 03/28/18 10:02 97.1 F L 87 16 119/76 03/28/18 08:41 81 18 122/86 03/28/18 07:02 97.1 F L 94 18 131/71 03/28/18 06:17 120 H 18 148/98 03/28/18 03:13 94 18 147/64 03/28/18 00:07 97.7 F 94 16 133/82 03/27/18 23:23 16 03/27/18 21:44 97.8 F 106 H 20 130/93 Pulse Ox 03/28/18 11:45 96 03/28/18 11:15 97 03/28/18 11:00 95 03/28/18 10:45 95 03/28/18 10:30 99 03/28/18 10:15 99 03/28/18 10:02 98 03/28/18 08:41 97 03/28/18 07:02 95 03/28/18 06:17 95 03/28/18 03:13 98 03/28/18 00:07 94 L 03/27/18 23:23 03/27/18 21:44 93 L Intake and Output 03/27/18 03/28/18 03/28/18 22:59 06:59 14:59 Intake Total 1000 Balance 1000 Intake: IV 1000 Other: Weight 82.554 kg GENERAL EXAM: Alert, active, comfortable in no apparent distress. HEAD: Normocephalic. EYES: Normal reaction of pupils, equal size. NOSE: Clear with pink turbinates. THROAT: No erythema or exudates. NECK: No masses, no JVD. CHEST: No chest wall deformity. LUNGS: Equal air entry with no crackles, wheeze, rhonchi or dullness. CVS: S1 and S2 normal with no audible murmur, regular rhythm. ABDOMEN: No hepatosplenomegaly, normal bowel sounds, no guarding or rigidity. SPINE: No scoliosis or deformity SKIN: No rashes CENTRAL NERVOUS SYSTEM: No focal deficits, tone is normal in all 4 extremities. EXTREMITIES: There is no peripheral edema. No clubbing, no cyanosis. Peripheral pulses are intact. Results - Laboratory Findings CBC and BMP: 03/27/18 22:45 03/27/18 22:45 Abnormal lab findings: Abnormal Labs 03/27/18 03/27/18 22:45 22:45 WBC 14.4 H Neutrophils # 12.3 H Chloride 111 H Carbon Dioxide 21 L Glucose 132 H - Diagnostic Findings Chest x-ray: image reviewed Assessment and Plan Assessment: Impression: #1 Food impaction of the esophagus following choking during dinner. He is status post EGD with removal of the food impaction. #2 Acute hypoxic respiratory failure secondary to sedation and EGD procedure. Recovered. No evidence of aspiration. #3 Autism with developmental delay. #4 Hyperlipidemia. Plan: The patient was seen and evaluated by Dr. Reddy. Chest x-ray and labs were reviewed. Patient's lungs are clear. No clear evidence of aspiration. We will prescribe Augmentin empirically for 1 week. He is cleared for discharge. I, the cosigning physician, performed a history & physical examination of the patient. Lungs sounds are clear. Maintaining good O2 saturations in the 90s on room air. I discussed the assessment and plan of care with my nurse practitioner, Lilly Beckwith. I attest to the above note as dictated by her. Time with Patient: Greater than 30
== END 2018-03-28 12:51 | disposition home or self-care (01) ==
LOC: EC 21:28 → EEVIPCON 21:28 → 3OBS 03-28 06:10 → UNDOADMOB 03-28 06:10 → EC 03-28 12:51
PROVIDERS: ATTEND Emergency Medicine
DX: T18.128A Food in esophagus causing other injury, initial encounter (principal); K22.8 Other specified diseases of esophagus; K29.70 Gastritis, unspecified, without bleeding; F84.0 Autistic disorder; Z79.899 Other long term (current) drug therapy; E78.5 Hyperlipidemia, unspecified; M41.9 Scoliosis, unspecified; F41.9 Anxiety disorder, unspecified
CPT/HCPCS: 36415; 88305; 80053; 83605; 85025; 87040; 71045; 71046; 71250; 43239; 43247; J1610; J2175; J2001; J3010; J0295; J0330; J2704

== ENCOUNTER → 2018-04-14 | Day surgery (SDC) | payer MEDICARE, OTHER ==
[2018-04-12 11:28] VITALS: BMI 28.3
[~2018-04-14] MED LIST: LACTATED RINGERS 1,000 ML IV SCH; LIDOCAINE 1% 20 ML VIAL (10MG/ML) FOR IV START SQ ONE; LIDOCAINE 1% INJ 10MG/ML (20 ML MDV) ONE; PROPOFOL 10 MG/ML 20 ML VIAL IV ONE
[2018-04-14 07:41] VITALS: RESP 16; TEMP 97.3
--- NOTE | 2018-04-14 09:06 | P.PCN ---
Date of Procedure: 04/14/18 Procedure(s) Performed: Procedure: Total colonoscopy. Preoperative diagnosis: Intermittent rectal bleeding. Postoperative diagnosis: Low-grade internal hemorrhoids without evidence of bleeding at the time of this exam. Preparation: HalfLytely prep. Sedation: Was provided by anesthesia. Brief clinical history: The patient is a 48-year-old male who is scheduled for this evaluation because of intermittent rectal bleeding. The patient has autism and scoliosis and has had a recent upper endoscopy for removal of impacted piece of meat. No significant pathology were noted. Procedure: With the patient on his left lateral decubitus position and after informed consent and adequate sedation, the perianal area was inspected and it did not show any fissures or fistulas. There were no masses felt on digital rectal examination. The Olympus CFQ 160L video colonoscope was then inserted in the rectum in the usual fashion and advanced to the cecum. The preparation was good. The mucosa appeared healthy. No polyps or tumors were seen or any obvious diverticular disease. I retroflexed the endoscope in the rectum before the endoscope was withdrawn. Low-grade internal hemorrhoids were noted with no evidence of bleeding. The patient tolerated the procedure well. Plan: The patient and his sister were reassured. Discussed dietary measures and local care for hemorrhoids. For screening for colon cancer, I would recommend repeat exam in 10 years.
[2018-04-14 09:18] VITALS: BP 131/84; PULSE 66
== END ==
LOC: ORWHC2ENDO 07:18
DX: K92.1 Melena (principal); K64.8 Other hemorrhoids; F84.0 Autistic disorder; M41.9 Scoliosis, unspecified; E78.5 Hyperlipidemia, unspecified; Z79.899 Other long term (current) drug therapy
CPT/HCPCS: 45378; J2001; J2704

== ENCOUNTER 2018-09-03 16:50 | Emergency (ER) | payer MEDICARE, OTHER ==
[2018-09-03 17:10] VITALS: BP 132/70; RESP 18
[2018-09-03] MEDS ORDERED: ACETAMINOPHEN TAB 500 MG TAB PO STA (17:58)
--- NOTE | 2018-09-03 17:58 | ED ---
General Adult HPI - General Chief complaint: Upper Respiratory Infection Stated complaint: FEVER, RT EAR, CONGESTION Time Seen by Provider: 09/03/18 17:40 Source: patient, RN notes reviewed Mode of arrival: ambulatory Limitations: no limitations - History of Present Illness Initial comments: 48-year-old male with a past medical history of GERD, hyperlipidemia, autism presents to the emergency department for a chief complaint of cough 4 days. Family member states patient has had a dry cough. He has also had moderate fevers on and off up to 102. He has been receiving Tylenol. Patient has also been complaining of a sore throat as well as left ear pain for the past 4 days. She states she has been eating and drinking normally and the facility aware he lives is making sure he is drinking according to the family member. Patient has not been complaining of chest pain or shortness of breath. No nausea vomiting or diarrhea. Patient has no other complaints at this time including shortness of breath, chest pain, abdominal pain, nausea or vomiting, headache, or visual changes. - Related Data Home Medications Medication Instructions Recorded Confirmed Atorvastatin Calcium [Lipitor] 20 mg PO DAILY@209903/27/18 04/12/18 OLANZapine 7.5 mg PO DAILY@209903/27/18 04/12/18 Polyethylene Glycol 3350 [Clearlax] 17 gm PO QAM 03/27/18 04/12/18 Sennosides [Senna] 2 tab PO HS 03/27/18 04/12/18 Carbamide Peroxide [Debrox Otic] 4 drops BOTH EARS BID 04/12/18 04/12/18 Ergocalciferol (Vitamin D2) 50,000 unit PO WEEKLY 04/12/18 04/12/18 [Vitamin D2] Pantoprazole [Protonix] 40 mg PO 0800,1700 04/12/18 04/12/18 Previous Rx's Medication Instructions Recorded Azithromycin [Zithromax] 500 ml PO DIRECTED 5 Days ml 09/03/18 Allergies Allergy/AdvReac Type Severity Reaction Status Date / Time No Known Allergies Allergy Verified 09/03/18 17:05 Review of Systems ROS Statement: Those systems with pertinent positive or pertinent negative responses have been documented in the HPI. ROS Other: All systems not noted in ROS Statement are negative. Past Medical History Past Medical History: GERD/Reflux, Hyperlipidemia Additional Past Medical History / Comment(s): AUTISM, MENTALLY LIKE A 6 YEAR OLD.,NON-VERBAL (WILL ANSWER YES TO ALL QUESTIONS).,SCOLIOSIS, SCHUFFLES WHEN HE WALKS., RECENT EGD UNDER ANESTHESIA TO REMOVE FOOD THAT WAS STUCK IN HIS THROAT (03/28/18). , RESIDES AT [facility] (PHONE # )., HAVING OCCASIONAL BLOOD IN STOOLS., LEGAL GUARDIAN IS HIS SISTER- LIBIA LEADER # [phone]. History of Any Multi-Drug Resistant Organisms: None Reported Additional Past Surgical History / Comment(s): HEMORROIDECTOMY, EGD WITH ANESTHESIA. Past Anesthesia/Blood Transfusion Reactions: No Reported Reaction Past Psychological History: Anxiety Smoking Status: Never smoker Past Alcohol Use History: None Reported Past Drug Use History: None Reported - Past Family History Mother Family Medical History: Diabetes Mellitus Father Family Medical History: Cancer Additional Family Medical History / Comment(s): BONE AND LIVER General Exam Limitations: no limitations General appearance: alert, in no apparent distress Head exam: Present: atraumatic, normocephalic, normal inspection Eye exam: Present: normal appearance, PERRL, EOMI. Absent: scleral icterus, conjunctival injection, periorbital swelling ENT exam: Present: normal exam, normal oropharynx, mucous membranes moist. Absent: TM's normal bilaterally (cerumen impaction noted bilat) Neck exam: Present: normal inspection, full ROM. Absent: tenderness, meningismus, lymphadenopathy Respiratory exam: Present: normal lung sounds bilaterally. Absent: respiratory distress, wheezes, rales, rhonchi, stridor Cardiovascular Exam: Present: regular rate, normal rhythm, normal heart sounds. Absent: systolic murmur, diastolic murmur, rubs, gallop, clicks GI/Abdominal exam: Present: soft, normal bowel sounds. Absent: distended, tenderness, guarding, rebound, rigid Neurological exam: Present: alert, oriented X3, CN II-XII intact Psychiatric exam: Present: normal affect, normal mood Course Vital Signs 09/03/18 09/03/18 17:07 19:05 Temperature 98.8 F 98.9 F Pulse Rate 104 H 98 Respiratory 18 18 Rate Blood Pressure 132/70 O2 Sat by Pulse 95 Oximetry Medical Decision Making - Medical Decision Making 48-year-old male presents for cough and fever 4 days. Patient is well- appearing on exam. Patient is autistic and family members answering questions. Patient does not have a fever here in the emergency department but was given Tylenol. Chest x-ray was reviewed both image and report and are negative for any infiltration or pneumonia. Strep is negative. Influenza A is positive. Patient is outside of the window for Tamiflu so this will not be given. Patient is also complaining of left ear pain, there is cerumen impaction. I did offer to flush this but family member states a physician comes to the house to do this and she would rather have him do this. However as I cannot see the tympanic membrane he will be treated with antibiotic for possible otitis media. I did also offer to have Dr. Blake see the patient but feeling member states she does not need this and would rather take him home now. Patient is eating applesauce in the emergency department and has been tolerating liquids at home. Did discuss strict return parameters such as not tolerating oral intake or other worsening symptoms. - Lab Data Lab Results 09/03/18 09/03/18 Range/Units 18:20 18:20 Influenza Type A RNA Detected H (Not Detectd) Influenza Type B (PCR) Not Detected (Not Detectd) Group A Strep Rapid Negative (Negative) Disposition Clinical Impression: Influenza A, Ear pain, left Disposition: HOME SELF-CARE Condition: Good Instructions (If sedation given, give patient instructions): Influenza (ED), Ear Infection (ED) Additional Instructions: Please take amoxicillin as directed. Please give Motrin and Tylenol for fever. Make sure patient is drinking plenty of fluids. The patient has worsening symptoms or is not tolerating solids or liquids then return to the emergency department. Prescriptions: Azithromycin [Zithromax] 500 ml PO DIRECTED 5 Days ml Is patient prescribed a controlled substance at d/c from ED?: No Referrals: Derek Sousa MD [Primary Care Provider] - 1-2 days Time of Disposition: 19:51
--- NOTE | 2018-09-03 18:55 | XR ---
EXAMINATION TYPE: XR chest 2V DATE OF EXAM: 09/03/2018 COMPARISON: Chest x-ray and CT chest March 28, 2018 HISTORY: Cough and congestion with chest pain TECHNIQUE: Frontal and lateral views of the chest are obtained. FINDINGS: There is some chronic parenchymal change without suspicious focal air space opacity, pleur al effusion, or pneumothorax seen. The cardiac silhouette size is within normal limits. Underlying l evoconvex scoliosis centered in the upper lumbar spine is redemonstrated. IMPRESSION: No acute cardiopulmonary process.
[2018-09-03 19:05] VITALS: PULSE 98; TEMP 98.9
[2018-09-03] MEDS ORDERED: AZITHROMYCIN 1,200 MG/30 ML BOTTLE PO STA (20:04)
== END 2018-09-03 20:32 | disposition home or self-care (01) ==
LOC: EC 16:50
DX: J10.1 Influenza due to other identified influenza virus with other respiratory manifestations (principal); H92.02 Otalgia, left ear; K21.9 Gastro-esophageal reflux disease without esophagitis; E78.5 Hyperlipidemia, unspecified; F84.0 Autistic disorder; F41.9 Anxiety disorder, unspecified; Z79.899 Other long term (current) drug therapy
CPT/HCPCS: 71046; 87081; 87430; 87502; 99283

== ENCOUNTER 2018-09-19 18:22 | Observation (INO) | payer MEDICARE, OTHER ==
[2018-09-19] MEDS ORDERED: SODIUM CHLORIDE 0.9% 500 ML 500 ML IV STA (18:42)
[2018-09-19 19:21] LABS: Basophils # (A) 0.1 k/uL (0-0.2); Basophils % (A) 1 %; Eosinophils % (A) 1 %; HCT 39.6 % (39.0-53.0); HGB 13.3 gm/dL (13.0-17.5); Lymphocytes # (A) 2.5 k/uL (1.0-4.8); Lymphocytes % (A) 39 %; MCH 31.4 pg (25.0-35.0); MCHC 33.7 g/dL (31.0-37.0); MCV 93.2 fL (80.0-100.0); Mean Platelet Volume 8.1; Monocytes # (A) 0.5 k/uL (0-1.0); Monocytes % (A) 8 %; Neutrophils # (A) 3.1 k/uL (1.3-7.7); Neutrophils % (A) 49 %; Platelet Count 279 k/uL (150-450); RBC 4.25 m/uL (4.30-5.90); RDW 13.6 % (11.5-15.5); WBC 6.4 k/uL (3.8-10.6)
[2018-09-19 19:33] LABS: INR 1.1 (<1.2); Partial Thromboplastin Time 25.2 sec (22.0-30.0); Prothrombin Time 11.9 sec (9.0-12.0)
[2018-09-19 19:43] LABS: ALT 34 U/L (21-72); AST 29 U/L (17-59); Albumin 3.4 g/dL (3.5-5.0); Alkaline Phosphatase 70 U/L (38-126); Anion Gap 6 mmol/L; Blood Urea Nitrogen 13 mg/dL (9-20); Calcium 8.5 mg/dL (8.4-10.2); Carbon Dioxide 24 mmol/L (22-30); Chloride 109 mmol/L (98-107); Creatine Kinase 366 U/L (55-170); Glucose 88 mg/dL (74-99); Magnesium 2.1 mg/dL (1.6-2.3); Potassium 4.5 mmol/L (3.5-5.1); Sodium 139 mmol/L (137-145); Total Bilirubin 0.9 mg/dL (0.2-1.3); Total Protein 6.5 g/dL (6.3-8.2)
--- NOTE | 2018-09-19 19:48 | ED ---
General Adult HPI - General Chief complaint: Weakness Stated complaint: Poss UTI Time Seen by Provider: 09/19/18 18:41 Source: patient, RN notes reviewed, old records reviewed Mode of arrival: ambulatory Limitations: no limitations - History of Present Illness Initial comments: 48-year-old male history of autism presents with increased generalized weakness and lethargy. Patient is currently residing at [facility] home. He is accompanied by his family member states that he's had increased generalized weakness over the past one week. He was evaluated and treated for ear infection, he's been on an unknown antibiotic for the past week. Patient is unable to to indicate exact details of his history. He did complain of some left ear pain. No history of vomiting or diarrhea. No pain complaints. No documented fever. Patient was noted that patient's urine had become less frequent and was very dark. - Related Data Home Medications Medication Instructions Recorded Confirmed Atorvastatin Calcium [Lipitor] 20 mg PO DAILY@2100 03/27/18 04/12/18 OLANZapine 7.5 mg PO DAILY@209903/27/18 04/12/18 Polyethylene Glycol 3350 [Clearlax] 17 gm PO QAM 03/27/18 04/12/18 Sennosides [Senna] 2 tab PO HS 03/27/18 04/12/18 Carbamide Peroxide [Debrox Otic] 4 drops BOTH EARS BID 04/12/18 04/12/18 Ergocalciferol (Vitamin D2) 50,000 unit PO WEEKLY 04/12/18 04/12/18 [Vitamin D2] Pantoprazole [Protonix] 40 mg PO 0800,1700 04/12/18 04/12/18 Previous Rx's Medication Instructions Recorded Azithromycin [Zithromax] 250 mg PO DAILY 4 Days ml 09/03/18 Azithromycin [Zithromax] 500 ml PO DIRECTED 5 Days ml 09/03/18 Allergies Allergy/AdvReac Type Severity Reaction Status Date / Time No Known Allergies Allergy Verified 09/19/18 19:10 Review of Systems ROS Statement: Those systems with pertinent positive or pertinent negative responses have been documented in the HPI. ROS Other: All systems not noted in ROS Statement are negative. Past Medical History Past Medical History: GERD/Reflux, Hyperlipidemia Additional Past Medical History / Comment(s): AUTISM, MENTALLY LIKE A 6 YEAR OLD.,NON-VERBAL (WILL ANSWER YES TO ALL QUESTIONS).,SCOLIOSIS, SCHUFFLES WHEN HE WALKS., RECENT EGD UNDER ANESTHESIA TO REMOVE FOOD THAT WAS STUCK IN HIS THROAT (03/28/18). , RESIDES AT [facility] (PHONE # )., HAVING OCCASIONAL BLOOD IN STOOLS., LEGAL GUARDIAN IS HIS SISTER- LIBIA LEADER # [phone]. History of Any Multi-Drug Resistant Organisms: None Reported Additional Past Surgical History / Comment(s): HEMORROIDECTOMY, EGD WITH ANESTHESIA. Past Anesthesia/Blood Transfusion Reactions: No Reported Reaction Past Psychological History: Anxiety Smoking Status: Never smoker Past Alcohol Use History: None Reported Past Drug Use History: None Reported - Past Family History Mother Family Medical History: Diabetes Mellitus Father Family Medical History: Cancer Additional Family Medical History / Comment(s): BONE AND LIVER General Exam Limitations: no limitations General appearance: alert, in no apparent distress Head exam: Present: atraumatic, normocephalic Eye exam: Present: normal appearance. Absent: PERRL, EOMI ENT exam: Absent: TM's normal bilaterally (Bilateral cerumen impaction) Neck exam: Present: normal inspection. Absent: tenderness, meningismus Respiratory exam: Present: normal lung sounds bilaterally. Absent: respiratory distress, wheezes Cardiovascular Exam: Present: regular rate, normal rhythm GI/Abdominal exam: Present: soft. Absent: distended, tenderness, guarding, rebound Extremities exam: Present: normal inspection, normal capillary refill. Absent: pedal edema Neurological exam: Present: alert. Absent: oriented X3, motor sensory deficit Psychiatric exam: Present: normal affect, normal mood Skin exam: Present: warm, dry, intact, pallor. Absent: cyanosis, diaphoretic Course Vital Signs 09/19/18 09/19/18 18:39 22:00 Temperature 98.7 F Pulse Rate 88 85 Respiratory 24 14 Rate Blood Pressure 126/83 126/83 O2 Sat by Pulse 96 92 L Oximetry EKG Findings - EKG Comments: EKG Findings:: EKG: Normal sinus rhythm, ventricular rate of 89, NH interval 142 , QRS duration 84, QTC 472, very poor baseline secondary to artifact, T waves are upright in the precordial leads, no ST segment elevation Medical Decision Making - Medical Decision Making 48-year-old male presenting with increased generalized weakness, only associated symptom is decreased urine output and dark urine. Laboratory testing reveals normal CBC, normal CMP, urinalysis negative for infection. Chest x-ray negative for focal pneumonia or acute findings. Although patient's laboratory studies to. Normal coming clinically he appears dehydrated, dry mucous membranes with history of decreased urine output. Will be placed in observation for IV hydration. Case is discussed with admitting physician, will accept. - Lab Data Result diagrams: 09/19/18 18:35 09/19/18 18:35 Lab Results 09/19/18 09/19/18 09/19/18 Range/Units 18:35 18:35 18:35 WBC 6.4 (3.8-10.6) k/uL RBC 4.25 L (4.30-5.90) m/uL Hgb 13.3 (13.0-17.5) gm/dL Hct 39.6 (39.0-53.0) % MCV 93.2 (80.0-100.0) fL MCH 31.4 (25.0-35.0) pg MCHC 33.7 (31.0-37.0) g/dL RDW 13.6 (11.5-15.5) % Plt Count 279 (150-450) k/uL Neutrophils % 49 % Lymphocytes % 39 % Monocytes % 8 % Eosinophils % 1 % Basophils % 1 % Neutrophils # 3.1 (1.3-7.7) k/uL Lymphocytes # 2.5 (1.0-4.8) k/uL Monocytes # 0.5 (0-1.0) k/uL Eosinophils # 0.0 (0-0.7) k/uL Basophils # 0.1 (0-0.2) k/uL PT (9.0-12.0) sec INR (<1.2) APTT (22.0-30.0) sec Sodium 139 (137-145) mmol/L Potassium 4.5 (3.5-5.1) mmol/L Chloride 109 H (98-107) mmol/L Carbon Dioxide 24 (22-30) mmol/L Anion Gap 6 mmol/L BUN 13 (9-20) mg/dL Creatinine 0.77 (0.66-1.25) mg/dL Est GFR (CKD-EPI)AfAm >90 (>60 ml/min/1.73 sqM) Est GFR (CKD-EPI)NonAf >90 (>60 ml/min/1.73 sqM) Glucose 88 (74-99) mg/dL Plasma Lactic Acid Gilberto (0.7-2.0) mmol/L Calcium 8.5 (8.4-10.2) mg/dL Magnesium 2.1 (1.6-2.3) mg/dL Total Bilirubin 0.9 (0.2-1.3) mg/dL AST 29 (17-59) U/L ALT 34 (21-72) U/L Alkaline Phosphatase 70 (38-126) U/L Total Creatine Kinase 366 H (55-170) U/L CK-MB (CK-2) 1.1 (0.0-2.4) ng/mL CK-MB (CK-2) Rel Index 0.3 Troponin I <0.012 (0.000-0.034) ng/mL Total Protein 6.5 (6.3-8.2) g/dL Albumin 3.4 L (3.5-5.0) g/dL Urine Color Urine Appearance (Clear) Urine pH (5.0-8.0) Ur Specific [place] (1.001-1.035) Urine Protein (Negative) Urine Glucose (UA) (Negative) Urine Ketones (Negative) Urine Blood (Negative) Urine Nitrite (Negative) Urine Bilirubin (Negative) Urine Urobilinogen (<2.0) mg/dL Ur Leukocyte Esterase (Negative) 09/19/18 09/19/18 09/19/18 Range/Units 18:35 18:35 20:27 WBC (3.8-10.6) k/uL RBC (4.30-5.90) m/uL Hgb (13.0-17.5) gm/dL Hct (39.0-53.0) % MCV (80.0-100.0) fL MCH (25.0-35.0) pg MCHC (31.0-37.0) g/dL RDW (11.5-15.5) % Plt Count (150-450) k/uL Neutrophils % % Lymphocytes % % Monocytes % % Eosinophils % % Basophils % % Neutrophils # (1.3-7.7) k/uL Lymphocytes # (1.0-4.8) k/uL Monocytes # (0-1.0) k/uL Eosinophils # (0-0.7) k/uL Basophils # (0-0.2) k/uL PT 11.9 (9.0-12.0) sec INR 1.1 (<1.2) APTT 25.2 (22.0-30.0) sec Sodium (137-145) mmol/L Potassium (3.5-5.1) mmol/L Chloride (98-107) mmol/L Carbon Dioxide (22-30) mmol/L Anion Gap mmol/L BUN (9-20) mg/dL Creatinine (0.66-1.25) mg/dL Est GFR (CKD-EPI)AfAm (>60 ml/min/1.73 sqM) Est GFR (CKD-EPI)NonAf (>60 ml/min/1.73 sqM) Glucose (74-99) mg/dL Plasma Lactic Acid Gilberto 1.5 (0.7-2.0) mmol/L Calcium (8.4-10.2) mg/dL Magnesium (1.6-2.3) mg/dL Total Bilirubin (0.2-1.3) mg/dL AST (17-59) U/L ALT (21-72) U/L Alkaline Phosphatase (38-126) U/L Total Creatine Kinase (55-170) U/L CK-MB (CK-2) (0.0-2.4) ng/mL CK-MB (CK-2) Rel Index Troponin I (0.000-0.034) ng/mL Total Protein (6.3-8.2) g/dL Albumin (3.5-5.0) g/dL Urine Color Yellow Urine Appearance Clear (Clear) Urine pH 6.0 (5.0-8.0) Ur Specific [place] 1.009 (1.001-1.035) Urine Protein Negative (Negative) Urine Glucose (UA) Negative (Negative) Urine Ketones Negative (Negative) Urine Blood Negative (Negative) Urine Nitrite Negative (Negative) Urine Bilirubin Negative (Negative) Urine Urobilinogen <2.0 (<2.0) mg/dL Ur Leukocyte Esterase Negative (Negative) Disposition Clinical Impression: Dehydration Disposition: ADMITTED IP TO THIS HOSP Condition: Stable Is patient prescribed a controlled substance at d/c from ED?: No Referrals: Derek Sousa MD [Primary Care Provider] - 1-2 days Decision to Admit Reason: Admit from EC Decision Date: 09/19/18 Decision Time: 22:37
[2018-09-19 19:54] LABS: Creatine Kinase MB 1.1 ng/mL (0.0-2.4); Troponin I <0.012 ng/mL (0.000-0.034)
[2018-09-19 20:43] LABS: Appearance,Urine Clear (Clear); Bilirubin,Urine Negative (Negative); Blood,Urine Negative (Negative); Color,Urine Yellow; Glucose,Urine (UA) Negative (Negative); Ketones,Urine Negative (Negative); Leukocyte Esterase,Urine Negative (Negative); Nitrite,Urine Negative (Negative); Protein,Urine Negative (Negative); Specific Gravity,Urine 1.009 (1.001-1.035); Urobilinogen,Urine <2.0 mg/dL (<2.0)
--- NOTE | 2018-09-19 21:34 | XR ---
EXAMINATION TYPE: XR chest 2V DATE OF EXAM: 09/19/2018 COMPARISON: September 03, 2018 HISTORY: Weakness TECHNIQUE: Frontal and lateral views of the chest are obtained. FINDINGS: There is no heart failure nor confluent pneumonic infiltrate. Costophrenic angles are rigoberto r. There are chest leads. Bony thorax is intact. IMPRESSION: No active cardiopulmonary disease. No change.
[2018-09-19] MEDS ORDERED: SODIUM CHLORIDE 0.9% 1,000 ML IV ONE (22:36)
[2018-09-19] MEDS ORDERED: NALOXONE 0.4 MG/ML 1 ML VIAL IV PRN (22:37)
--- NOTE | 2018-09-19 23:25 | P.HPIM ---
History of Present Illness H&P Date: 09/19/18 The patient is a 48-year-old male with a PMH of autism and intellectual disability, resident of [facility] was brought into the ED due to lethargy and weakness. The patient unable to provide history and answering yes to all questions. History supplemented from ED documentation and sister/guardian at bedside. As per the sister, the patient was noted to be lethargic at the [facility], and was suspected to be dehydrated since patient had very dark urine and poor oral intake over the last few days. Of note, the patient was recently diagnosed with Influenza A (seen in ED on 09/03/18 for cough and fevers), outside the window of Tamiflu and was discharged to [facility] with Amoxicillin for presumed otitis media. The sister notes that the patient's baseline mental status has worsened over the last few years and his baseline consists of being able to ambulate on his own however minimal communication and answering all questions with a yes. As per the ED documentation and the sister, there were no complaints of diarrhea, fever, chills, shortness of breath, chest pain, vomiting, or headaches. In the emergency room, the patient underwent a comprehensive workup, with WBC count 6.4, hemoglobin 13, sodium 139, creatinine 0.77, BUN 13, CK 366, and chest x-ray unremarkable. UA was unremarkable. Review of Systems Unable to obtain, patient answering yes to all questions. History supplemented by sister and ED documentation. Past Medical History Past Medical History: GERD/Reflux, Hyperlipidemia Additional Past Medical History / Comment(s): AUTISM, MENTALLY LIKE A 6 YEAR OLD.,NON-VERBAL (WILL ANSWER YES TO ALL QUESTIONS).,SCOLIOSIS, SCHUFFLES WHEN HE WALKS., RECENT EGD UNDER ANESTHESIA TO REMOVE FOOD THAT WAS STUCK IN HIS THROAT (03/28/18). , RESIDES AT [facility] (PHONE # )., HAVING OCCASIONAL BLOOD IN STOOLS., LEGAL GUARDIAN IS HIS SISTER- SUZAN LEADER # [phone]. History of Any Multi-Drug Resistant Organisms: None Reported Additional Past Surgical History / Comment(s): HEMORROIDECTOMY, EGD WITH ANESTHESIA. Past Anesthesia/Blood Transfusion Reactions: No Reported Reaction Past Psychological History: Anxiety Smoking Status: Never smoker Past Alcohol Use History: None Reported Past Drug Use History: None Reported - Past Family History Mother Family Medical History: Diabetes Mellitus Father Family Medical History: Cancer Additional Family Medical History / Comment(s): BONE AND LIVER Medications and Allergies Home Medications Medication Instructions Recorded Confirmed Type Atorvastatin Calcium [Lipitor] 20 mg PO DAILY@209903/27/18 04/12/18 History OLANZapine 7.5 mg PO DAILY@209903/27/18 04/12/18 History Polyethylene Glycol 3350 [Clearlax] 17 gm PO QAM 03/27/18 04/12/18 History Sennosides [Senna] 2 tab PO HS 03/27/18 04/12/18 History Carbamide Peroxide [Debrox Otic] 4 drops BOTH EARS BID 04/12/18 04/12/18 History Ergocalciferol (Vitamin D2) 50,000 unit PO WEEKLY 04/12/18 04/12/18 History [Vitamin D2] Pantoprazole [Protonix] 40 mg PO 0800,1700 04/12/18 04/12/18 History Azithromycin [Zithromax] 250 mg PO DAILY 4 Days ml 09/03/18 Rx Azithromycin [Zithromax] 500 ml PO DIRECTED 5 Days ml 09/03/18 Rx Allergies Allergy/AdvReac Type Severity Reaction Status Date / Time No Known Allergies Allergy Verified 09/19/18 19:10 Physical Exam Vitals: Vital Signs Temp Pulse Resp BP Pulse Ox 09/19/18 22:53 81 22 130/91 95 09/19/18 22:00 85 14 126/83 92 L 09/19/18 18:39 98.7 F 88 24 126/83 96 Intake and Output 09/19/18 09/19/18 09/20/18 14:59 22:59 06:59 Other: Weight 81.647 kg General: non toxic, no distress, appears at stated age, normal weight Derm: no unusual rashes/lesions no unusual ecchymoses, warm, dry Head: atraumatic, normocephalic, symmetric Eyes: EOMI, no lid lag, anicteric sclera, pupils equal round reactive to light ENT: Nose and ears atraumatic, no thrush, no pharyngeal erythema, cerumen impaction of both ears, unable to visualize tympanic membrane Neck: No thyromegaly, no cervical lymphadenopathy, trachea midline, supple Mouth: no lip lesion, mucus membranes dry Cardiovascular: S1S2 reg, no murmur, positive posterior tibial pulse bilateral, no edema, capillary refill less than 2 seconds Lungs: CTA bilateral, no rhonchi, no rales , no accessory muscle use Abdominal: soft, nontender to palpation, no guarding, no appreciable organomegaly, normal bowel sounds Ext: no gross muscle atrophy, moving all extremities, no contractures, Neuro: Unable to assess since patient not following commands Psych: Intellectual disability at baseline, answering yes to all questions Results CBC & Chem 7: 09/19/18 18:35 09/19/18 18:35 Labs: Abnormal Lab Results - Last 24 Hours (Table) 09/19/18 09/19/18 09/19/18 Range/Units 18:35 18:35 18:35 RBC 4.25 L (4.30-5.90) m/uL Chloride 109 H (98-107) mmol/L Total Creatine Kinase 366 H (55-170) U/L Albumin 3.4 L (3.5-5.0) g/dL Assessment and Plan Plan: Lethargy, weakness, likely secondary to dehydration; no signs of infection at this time -Continue with IV fluids -Monitor BMP Cerumen impaction -Debrox Hyperlipidemia -Continue with home med Lipitor GERD -Continue with Protonix DVT//GI prophylaxis -Lovenox -Protonix The patient is admitted with an anticipated less than 2 midnight stay for evaluation of dehydration. CODE STATUS: Full Code Discussed with: Patients guardian - Sister (Suzan) Anticipated discharge date: 09/20/[address] A total of 45 minutes was spent on the care of this complex patient more than 50 % of the time was spent in counseling and care coordination.
[2018-09-20] MEDS: SODIUM CHLORIDE 0.9% 1,000 ML IV SCH ×2 (00:10→08:20)
[2018-09-20] MEDS: CARBAMIDE PEROXIDE 6.5% DROPS 15 ML BTL BOTH EARS SCH ×2 (00:11→10:25)
[2018-09-20] MEDS ORDERED: PANTOPRAZOLE 40 MG TABLET PO SCH ×2 (07:30→17:30)
[2018-09-20 08:45] LABS: HCT 39.3 % (39.0-53.0); MCH 31.2 pg (25.0-35.0); MCV 94.5 fL (80.0-100.0); Mean Platelet Volume 7.8; Platelet Count 256 k/uL (150-450); RBC 4.16 m/uL (4.30-5.90); RDW 13.3 % (11.5-15.5); WBC 7.3 k/uL (3.8-10.6)
[2018-09-20] MEDS ORDERED: ENOXAPARIN 40 MG/0.4 ML SYRINGE SQ SCH (09:00)
[2018-09-20 09:08] LABS: ALT 32 U/L (21-72); AST 26 U/L (17-59); Albumin 3.5 g/dL (3.5-5.0); Alkaline Phosphatase 75 U/L (38-126); Anion Gap 6 mmol/L; Blood Urea Nitrogen 9 mg/dL (9-20); Calcium 8.8 mg/dL (8.4-10.2); Carbon Dioxide 27 mmol/L (22-30); Chloride 110 mmol/L (98-107); Glucose 89 mg/dL (74-99); Potassium 4.3 mmol/L (3.5-5.1); Sodium 143 mmol/L (137-145); Total Protein 6.5 g/dL (6.3-8.2)
[2018-09-20 11:03] VITALS: BP 132/89; PULSE 94; RESP 15; TEMP 97.6
[2018-09-20] MEDS ORDERED: ASPIRIN 325 MG TAB PO STA (11:35)
--- NOTE | 2018-09-20 12:34 | CT ---
EXAMINATION TYPE: CT brain wo con DATE OF EXAM: 09/20/2018 COMPARISON: 02/20/2017 HISTORY: 48-year-old male confusion, concern for CVA, altered mental status TECHNIQUE: Examination was done in axial plane without intravenous contrast. Coronal and sagittal r econstructions performed. CT DLP: 953.6 mGycm Automated exposure control for dose reduction was used. FINDINGS: There is no evidence of acute intracranial hemorrhage, acute ischemic changes, mass, mass-effect, or extra-axial fluid collection. There is no effacement of cerebral sulci or basal subarachnoid cister ns. There is no hydrocephalus. There is no midline shift. Quintero-white matter distinction is preserv ed. Leftward nasal septal deviation. Prominent cerumen in the bilateral external auditory canals. Small a mount of trapped fluid in the inferior mastoid air cells on both sides. Orbits and globes appear inta ct. IMPRESSION: 1. No acute intracranial abnormality seen. If symptoms persist, consider MRI. 2. Cerumen packing the external auditory canals. 3. Small amount of trapped fluid in the inferior most mastoid air cells on both sides. Questionable c linical significance. Correlate for any mastoid pain to exclude mastoiditis.
--- NOTE | 2018-09-20 12:57 | US ---
EXAMINATION TYPE: US carotid duplex BILAT DATE OF EXAM: 09/20/2018 COMPARISON: NONE CLINICAL HISTORY: concern for CVA. Speech changes, can only answer yes to any questioning. EXAM MEASUREMENTS: RIGHT: Peak Systolic Velocity (PSV) cm/sec ----- Right CCA: 56.7 ----- Right ICA: 58.5 ----- Right ECA: 91.4 ICA/CCA ratio: 1.0 RIGHT: End Diastole cm/sec ----- Right CCA: 16.8 ----- Right ICA: 25.6 ----- Right ECA: 18.9 LEFT: Peak Systolic Velocity (PSV) cm/sec ----- Left CCA: 60.5 ----- Left ICA: 75.3 ----- Left ECA: 72.7 ICA/CCA ratio: 1.2 LEFT: End Diastole cm/sec ----- Left CCA: 22.1 ----- Left ICA: 33.4 ----- Left ECA: 18.6 VERTEBRALS (direction of flow): Right Vertebral: Antegrade Left Vertebral: Antegrade Rhythm: Normal Challenging patient to scan due to rigid neck that patient did not move. Mild homogeneous plaque with no significant stenosis seen. IMPRESSION: Mild degree of grayscale atheromatous plaquing with no sonographically evident hemodynam ically significant stenosis within either visualized carotid arterial system. Criteria for Assigning % of Stenosis / Diameter reduction (Estimation based on the indirect measurements of the internal carotid artery velocities (ICA PSV). 1. Normal (no stenosis)=ICA PSV < 125 cm/s: ratio < 2.0: ICA EDV<40 cm/s. 2. Less than 50% stenosis=ICA PSV < 125 cm/s: ratio < 2.0: ICA EDV<40 cm/s. 3. 50 to 69% stenosis=ICA PSV of 125 to 230 cm/s: ration 2.0 ? 4.0: ICA EDV 40-100 cm/s. 4. Greater than 70% stenosis to near occlusion= ICA PSV > 230 cm/s: ratio > 4.0: ICA EDV > 100 cm/s. 5. Near occlusion= ICA PSV velocities may be low or undetectable: variable ratio and ICA EDV. 6. Total occlusion=unable to detect flow.
--- NOTE | 2018-09-20 13:38 | P.DS ---
Providers Date of admission: 09/19/18 22:37 Expected date of discharge: 09/20/18 Attending physician: Kareem Gonzalez MD Primary care physician: Derek Sousa - Discharge Diagnosis(es) (1) Altered mental status, unspecified Current Visit: No Status: Acute (2) Drooling Current Visit: Yes Status: Acute (3) Cerumen impaction Current Visit: Yes Status: Acute (4) Influenza A Current Visit: No Status: Acute Hospital Course: The patient is a 48-year-old male with a history of autism and intellectual disability who is largely nonverbal was a detention resident that was brought to the ER due to increase lethargy and weakness drooling and left lateral gaze. Apparently per his sister Suzan the patient appeared to have altered cognition with increase lethargy and weakness and drooling and left lateral gaze , there were no reports of focal weakness, facial droop. Apparently the patient had previously been diagnosed early in September with influenza A but was outside the therapeutic window for Tamiflu and was discharged back to the detention with a prescription for amoxicillin to treat his otitis media. Workup here included a computed tomography scan of the head which was negative for any acute intracranial pathology, there were cerumen packing in the external auditory canals with suggestion of possible mastoiditis. Carotid Dopplers were negative for any clinically significant carotid artery disease. In my discussion with the patient's sister, we discussed possibly transferring the patient to see neurology however she opted to take the patient back to the detention with plans for follow-up locally in neurology clinic. Patient was subsequently discharged back to the detention in stable condition. This discharge process took approximately 35 minutes Focused exam Neuro/psych : Unable to assess since patient not following commands, intellectual disability at baseline, answering yes to all questions Patient Condition at Discharge: Stable Plan - Discharge Summary New Discharge Prescriptions: New Aspirin 325 mg PO DAILY #30 tab Carbamide Peroxide [Debrox Otic] 8 drops BOTH EARS BID 7 Days #7 ml Continue Atorvastatin Calcium [Lipitor] 20 mg PO DAILY@2100 Sennosides [Senna] 2 tab PO HS OLANZapine 7.5 mg PO DAILY@2100 Pantoprazole [Protonix] 40 mg PO BID Valproic Acid Oral Soln [Depakene Syrup] 10 ml PO DAILY Cholecalciferol (Vitamin D3) [Vitamin D3] 2,000 unit PO DAILY Discharge Medication List Atorvastatin Calcium [Lipitor] 20 mg PO DAILY@209903/27/18 [History] OLANZapine 7.5 mg PO DAILY@209903/27/18 [History] Sennosides [Senna] 2 tab PO HS 03/27/18 [History] Pantoprazole [Protonix] 40 mg PO BID 04/12/18 [History] Aspirin 325 mg PO DAILY #30 tab 09/20/18 [Rx] Carbamide Peroxide [Debrox Otic] 8 drops BOTH EARS BID 7 Days #7 ml 09/20/18 [Rx ] Cholecalciferol (Vitamin D3) [Vitamin D3] 2,000 unit PO DAILY 09/20/18 [History] Valproic Acid Oral Soln [Depakene Syrup] 10 ml PO DAILY 09/20/18 [History] Follow up Appointment(s)/Referral(s): Apurva Vilchis MD [Medical Doctor] - 1 Week (Office will call sister with appointment information.) Derek Sousa MD [Primary Care Provider] - 1-2 days Activity/Diet/Wound Care/Special Instructions: Nurse - [facility] with transport when the pt is d/c call for ride - Discharge Disposition: TRANSFER TO SNF/ECF
[2018-09-20] MEDS ORDERED: ATORVASTATIN 20 MG TAB PO SCH (21:00)
[2018-09-20] MEDS ORDERED: SENNOSIDES 8.6 MG TAB PO SCH (21:00)
[2018-09-20] MEDS ORDERED: OLANZapine 2.5 MG TAB PO SCH (21:00)
[2018-09-21] MEDS ORDERED: ASPIRIN 325 MG TAB PO SCH (09:00)
[2018-09-21] MEDS ORDERED: CHOLECALCIFEROL 1,000 UNIT TAB PO SCH (09:00)
[2018-09-21] MEDS ORDERED: VALPROIC ACID ORAL SOLN 250 MG/5 ML CUP PO SCH (09:00)
== END 2018-09-20 15:20 | disposition home or self-care (01) ==
LOC: EC 18:22 → 3NMEDONC 22:37
PROVIDERS: ADMIT Internal Medicine; ATTEND Internal Medicine
DX: E86.0 Dehydration (principal); H61.23 Impacted cerumen, bilateral; R41.82 Altered mental status, unspecified; E78.5 Hyperlipidemia, unspecified; F41.9 Anxiety disorder, unspecified; F79 Unspecified intellectual disabilities; F84.0 Autistic disorder; K21.9 Gastro-esophageal reflux disease without esophagitis; M41.9 Scoliosis, unspecified; Z79.899 Other long term (current) drug therapy; Z86.19 Personal history of other infectious and parasitic diseases; Z83.3 Family history of diabetes mellitus
CPT/HCPCS: 96372; 96360; 96361; 99285; 36415; 93005; 80053 ×2; 82550; 82553; 83605; 83735; 84484; 85025; 85027; 85610; 85730; 81003; 87040; 87086; 71046; 93880; 70450; G0378 ×2; J1650

== ENCOUNTER → 2018-10-11 | Outpatient (CLI) | payer MEDICARE, OTHER ==
--- NOTE | 2018-10-11 12:39 | MR ---
EXAMINATION TYPE: MR brain wo/w con DATE OF EXAM: 10/11/2018 COMPARISON: CT brain 09/20/2018 HISTORY: Seizure Disorder TECHNIQUE: Multiplanar, multisequence images of the brain and brainstem is performed without and with IV contras t, utilizing 7.5 mL intravenous Gadavist . Fast brain protocol utilized due to patient's debility. FINDINGS: Diffusion weighted images demonstrate no evidence of a recent infarct or other diffusion ab normality. There is no extra-axial fluid collection. Suspect some scattered hyperintensities in the frontal lobes on inversion recovery T2-weighted sequences, approximately 3-5 lesions of questionable clinical significance. The ventricular system and cisternal spaces are normal in size and appearance . The brain volume is age appropriate. Midline structures demonstrate normal morphology. The craniocervical junction appears within normal limits. Post contrast images demonstrate no abnormal enhancement. The dural venous sinuses appear pa tent. The visualized sinuses are clear and the globes are intact. IMPRESSION: No acute abnormality. Nonspecific white matter demyelination of questionable clinical sig nificance, consider hypertension, migraine headaches, vasculitis and small vessel ischemia changes.
== END | disposition home or self-care (01) ==
LOC: RADMRIMAIN 10:02
PROVIDERS: ATTEND Psychiatry & Neurology Neurology
DX: G37.9 Demyelinating disease of central nervous system, unspecified (principal)
CPT/HCPCS: 70553; A9585

== ENCOUNTER 2018-11-09 19:52 | Emergency (ER) | payer MEDICARE, OTHER ==
[2018-11-09 20:06] VITALS: RESP 20
[2018-11-09] MEDS ORDERED: LORazepam 1 MG TAB PO STA (21:46)
--- NOTE | 2018-11-09 21:49 | ED ---
General Adult HPI - General Chief complaint: Recheck/Abnormal Lab/Rx Stated complaint: Mental Health Time Seen by Provider: 11/09/18 21:05 Source: EMS Mode of arrival: EMS Limitations: language barrier (Patient nonverbal) - History of Present Illness Initial comments: This patient is a 48-year-old man with history of developmental delay, brought from his adult foster care because he was being uncooperative with staff there. The history is given to me from the patient's guardian and caregiver. She states that this happened previously 3 years ago when he had a medication change. He recently had his medication changed on Wednesday, when a weaning him from BuSpar to Seroquel. The patient was not cooperative at the [facility] home tonight. He had an episode of incontinence and then would not let the staff there change him. The patient's guardian states that he now appears at his baseline here. When I interview the patient he is cooperative and pleasant though he is nonverbal at baseline. -: hour(s) Severity scale (1-10): 0 Improves with: none Worsens with: none Associated Symptoms: denies other symptoms Treatments Prior to Arrival: none - Related Data Home Medications Medication Instructions Recorded Confirmed Sennosides [Senna] 17.2 mg PO HS@2100 03/27/18 11/09/18 Pantoprazole [Protonix] 40 mg PO BID@0700,1700 04/12/18 11/09/18 Cholecalciferol (Vitamin D3) 2,000 unit PO DAILY@0700 09/20/18 11/09/18 [Vitamin D3] Valproic Acid Oral Soln [Depakene 500 mg PO BID@0700,2100 09/20/18 11/09/18 Syrup] Acetaminophen Tab [Tylenol Tab] 650 mg PO Q6H PRN 11/09/18 11/09/18 Carbamide Peroxide [Debrox Otic] 6 drops BOTH EARS Q30D 11/09/18 11/09/18 Clotrimazole/Betamethasone Dip 1 applic TOPICAL DAILY PRN 11/09/18 11/09/18 [Lotrisone Cream] Polyethylene Glycol 3350 [Miralax] 17 gm PO DAILY@0700 11/09/18 11/09/18 QUEtiapine [SEROquel] 25 mg PO HS@1700 11/09/18 11/09/18 Previous Rx's Medication Instructions Recorded LORazepam [Ativan] 1 mg PO HS PRN 3 Days #6 tab 11/09/18 Allergies Allergy/AdvReac Type Severity Reaction Status Date / Time No Known Allergies Allergy Verified 11/09/18 20:46 Review of Systems ROS Statement: Those systems with pertinent positive or pertinent negative responses have been documented in the HPI. ROS Other: All systems not noted in ROS Statement are negative. Limitations: ROS unobtainable due to patients medical condition ( is nonverbal) Constitutional: Denies: chills Respiratory: Denies: cough Gastrointestinal: Reports: other (One episode of fecal incontinence). Denies: vomiting Skin: Denies: rash Neurological: Denies: weakness Past Medical History Past Medical History: GERD/Reflux, Hyperlipidemia Additional Past Medical History / Comment(s): AUTISM, MENTALLY LIKE A 6 YEAR OLD.,NON-VERBAL (WILL ANSWER YES TO ALL QUESTIONS).,SCOLIOSIS, SCHUFFLES WHEN HE WALKS., RECENT EGD UNDER ANESTHESIA TO REMOVE FOOD THAT WAS STUCK IN HIS THROAT (03/28/18). , RESIDES AT [facility] (PHONE # [phone])., HAVING OCCASIONAL BLOOD IN STOOLS., LEGAL GUARDIAN IS HIS SISTER- LIBIA LEADER # [phone]. History of Any Multi-Drug Resistant Organisms: None Reported Additional Past Surgical History / Comment(s): HEMORROIDECTOMY, EGD WITH ANESTHESIA. Past Anesthesia/Blood Transfusion Reactions: No Reported Reaction Past Psychological History: Anxiety Smoking Status: Never smoker Past Alcohol Use History: None Reported Past Drug Use History: None Reported - Past Family History Mother Family Medical History: Diabetes Mellitus Father Family Medical History: Cancer Additional Family Medical History / Comment(s): BONE AND LIVER General Exam Limitations: language barrier General appearance: alert, in no apparent distress Head exam: Present: atraumatic, normocephalic Eye exam: Present: normal appearance, PERRL, EOMI. Absent: scleral icterus, conjunctival injection ENT exam: Present: normal oropharynx Neck exam: Present: full ROM. Absent: tenderness Respiratory exam: Present: normal lung sounds bilaterally. Absent: respiratory distress, wheezes, rales, rhonchi, stridor Cardiovascular Exam: Present: regular rate, normal rhythm, normal heart sounds. Absent: systolic murmur, diastolic murmur, rubs, gallop GI/Abdominal exam: Present: soft, normal bowel sounds. Absent: tenderness, gua rding, rebound, mass Extremities exam: Present: normal inspection, full ROM, normal capillary refill. Absent: tenderness Back exam: Present: normal inspection. Absent: CVA tenderness (R), CVA tenderness (L), vertebral tenderness Neurological exam: Present: alert. Absent: motor sensory deficit Skin exam: Present: warm, dry, intact, normal color. Absent: rash Course Vital Signs 11/09/18 20:03 Temperature 97.5 F L Pulse Rate 90 Respiratory 20 Rate Blood Pressure 135/98 O2 Sat by Pulse 94 L Oximetry Medical Decision Making - Medical Decision Making The patient's caregiver is adamant that this is a medication related phenomenon. She states that he does. Be at his baseline here. I explained that my preference would be to check some lab tests to ensure that there is not a medical process underlying was going on earlier at the halfway, but she states that she has seen this before and would not like that to be done tonight. She states that should there be any recurrence of the behavior any change from baseline a will just return here to have the studies performed. I stated that I would be willing to give a small number of Ativan for a when necessary basis but that my practice is not to change the patient's psychiatric meds but rather have them follow with their long-term care provider. We did discuss return parameters and appropriate follow-up. The patient did have a triage pulse ox 94 noted this was repeated at the bedside and we obtain a 98% I believe that the earlier reading appears to have been spurious Disposition Clinical Impression: Altered mental status, unspecified, Medication side effect Disposition: HOME SELF-CARE Condition: Good Prescriptions: LORazepam [Ativan] 1 mg PO HS PRN 3 Days #6 tab PRN Reason: Agitation Is patient prescribed a controlled substance at d/c from ED?: Yes Referrals: Derek Sousa MD [Primary Care Provider] - 1-2 days
[2018-11-09 23:11] VITALS: BP 129/94; PULSE 78; TEMP 98.1
== END 2018-11-09 23:12 | disposition home or self-care (01) ==
LOC: EC 19:52
DX: K21.9 Gastro-esophageal reflux disease without esophagitis (principal); T43.595A Adverse effect of other antipsychotics and neuroleptics, initial encounter; F84.0 Autistic disorder; Z79.899 Other long term (current) drug therapy
CPT/HCPCS: 99284

== ENCOUNTER 2019-07-03 18:08 | Observation (INO) | payer MEDICARE, OTHER ==
--- NOTE | 2019-07-03 18:14 | ED ---
Weakness HPI - General Stated complaint: Weakness Time Seen by Provider: 07/03/19 18:11 Source: RN notes reviewed, old records reviewed Limitations: no limitations - History of Present Illness Initial comments: This is a 49-year-old male after having a near-syncopal event history obtained from EMS family at bedside who is caregiver as well as chart. Patient was having a bowel movement he has difficulties with bowel movements especially secondary to dehydration having a bowel movement and had a near syncopal event currently complaining of some mild abdominal pain last bowel movement was yesterday MD Complaint: lack of energy -: days(s) Location: generalized Severity: moderate Severity scale (1-10): 7 Quality: aching Consistency: constant Improves with: none Worsens with: none Context: recent illness Associated Symptoms: chest pain - Related Data Home Medications Medication Instructions Recorded Confirmed Sennosides [Senna] 17.2 mg PO HS@2100 03/27/18 07/03/19 Pantoprazole [Protonix] 40 mg PO BID@0700,1700 04/12/18 07/03/19 Cholecalciferol (Vitamin D3) 2,000 unit PO DAILY@0700 09/20/18 07/03/19 [Vitamin D3] Valproic Acid Oral Soln [Depakene 500 mg PO BID@0800,2000 09/20/18 07/03/19 Syrup] Acetaminophen Tab [Tylenol Tab] 650 mg PO Q6H PRN 11/09/18 07/03/19 Carbamide Peroxide [Debrox Otic] 6 drops BOTH EARS Q30D 11/09/18 07/03/19 Clotrimazole/Betamethasone Dip 1 applic TOPICAL DAILY PRN 11/09/18 07/03/19 [Lotrisone Cream] Polyethylene Glycol 3350 [Miralax] 17 gm PO DAILY@0700 11/09/18 07/03/19 Brompheniramine/Phenylephrine 20 ml PO Q4H PRN 07/03/19 07/03/19 [Dimetapp Cold & Allergy Elixir] LORazepam [Ativan] 1 mg PO TID@0700,1300,1900 07/03/19 07/03/19 Nystatin 100,000Unit/gm Cream 1 applic TOPICAL BID PRN 07/03/19 07/03/19 [Mycostatin Cream] Pramox-Calamine 1-8% Lotion 1 applic TOPICAL DAILY PRN 07/03/19 07/03/19 [Caladryl] carBAMazepine [TEGretol Susp] 200 mg PO BID@0800,199907/03/19 07/03/19 Allergies Allergy/AdvReac Type Severity Reaction Status Date / Time No Known Allergies Allergy Verified 07/03/19 19:49 Review of Systems ROS Statement: Those systems with pertinent positive or pertinent negative responses have been documented in the HPI. ROS Other: All systems not noted in ROS Statement are negative. Past Medical History Past Medical History: GERD/Reflux, Hyperlipidemia Additional Past Medical History / Comment(s): AUTISM, MENTALLY LIKE A 6 YEAR OLD.,NON-VERBAL (WILL ANSWER YES TO ALL QUESTIONS).,SCOLIOSIS, SCHUFFLES WHEN HE WALKS., RECENT EGD UNDER ANESTHESIA TO REMOVE FOOD THAT WAS STUCK IN HIS THROAT (03/28/18). , RESIDES AT [facility] (PHONE # [phone])., HAVING OCCASIONAL BLOOD IN STOOLS., LEGAL GUARDIAN IS HIS SISTER- LIBIA LEADER # [phone]. History of Any Multi-Drug Resistant Organisms: None Reported Additional Past Surgical History / Comment(s): HEMORROIDECTOMY, EGD WITH ANESTHESIA. Past Anesthesia/Blood Transfusion Reactions: No Reported Reaction Past Psychological History: Anxiety Smoking Status: Never smoker Past Alcohol Use History: None Reported Past Drug Use History: None Reported - Past Family History Mother Family Medical History: Diabetes Mellitus Father Family Medical History: Cancer Additional Family Medical History / Comment(s): BONE AND LIVER General Exam General appearance: alert, in no apparent distress Head exam: Present: atraumatic, normocephalic, normal inspection Eye exam: Present: normal appearance, PERRL, EOMI. Absent: scleral icterus, conjunctival injection, periorbital swelling ENT exam: Present: normal exam, mucous membranes moist Neck exam: Present: normal inspection. Absent: tenderness, meningismus, lymphadenopathy Respiratory exam: Present: normal lung sounds bilaterally. Absent: respiratory distress, wheezes, rales, rhonchi, stridor Cardiovascular Exam: Present: normal rhythm, tachycardia, normal heart sounds. Absent: systolic murmur, diastolic murmur, rubs, gallop, clicks GI/Abdominal exam: Present: soft, normal bowel sounds. Absent: distended, tenderness, guarding, rebound, rigid Extremities exam: Present: normal inspection, full ROM, normal capillary refill. Absent: tenderness, pedal edema, joint swelling, calf tenderness Back exam: Present: normal inspection Neurological exam: Present: alert, oriented X3, CN II-XII intact Psychiatric exam: Present: normal affect, normal mood Skin exam: Present: warm, dry, intact, normal color. Absent: rash Course Vital Signs 07/03/19 07/03/19 18:15 20:58 Temperature 98.2 F Pulse Rate 101 H 93 Respiratory 18 18 Rate Blood Pressure 106/70 114/80 O2 Sat by Pulse 95 97 Oximetry - Reevaluation(s) Reevaluation #1: 07/03/19 22:49 med record is reviewed Reevaluation #2: 07/03/19 22:49 No recurrent syncopal event here in the ER no nausea vomiting - Consultations Consultation #1: Dr Rangel agreeable for admission EKG Findings - EKG Comments: EKG Findings:: EKG shows sinus tachycardia rate of 104, para 134, QRS 80, QTC 434 Medical Decision Making - Medical Decision Making 49-year-old here for evaluation patient with a first syncopal event ileus on x- ray difficult to have him follow-up. The symptoms happened while having a bowel movement today. Will admit for clearing of bilious IV hydration secondary to dehydration - Lab Data Result diagrams: 07/03/19 18:40 07/03/19 18:40 Lab Results 07/03/19 07/03/19 07/03/19 Range/Units 18:40 18:40 18:40 WBC 19.8 H (3.8-10.6) k/uL RBC 4.96 (4.30-5.90) m/uL Hgb 16.0 (13.0-17.5) gm/dL Hct 47.0 (39.0-53.0) % MCV 94.8 (80.0-100.0) fL MCH 32.3 (25.0-35.0) pg MCHC 34.1 (31.0-37.0) g/dL RDW 12.2 (11.5-15.5) % Plt Count 176 (150-450) k/uL Neutrophils % 90 % Lymphocytes % 2 % Monocytes % 6 % Eosinophils % 0 % Basophils % 0 % Neutrophils # 17.9 H (1.3-7.7) k/uL Lymphocytes # 0.4 L (1.0-4.8) k/uL Monocytes # 1.3 H (0-1.0) k/uL Eosinophils # 0.0 (0-0.7) k/uL Basophils # 0.0 (0-0.2) k/uL Sodium 139 (137-145) mmol/L Potassium 4.4 (3.5-5.1) mmol/L Chloride 107 (98-107) mmol/L Carbon Dioxide 24 (22-30) mmol/L Anion Gap 8 mmol/L BUN 16 (9-20) mg/dL Creatinine 0.89 (0.66-1.25) mg/dL Est GFR (CKD-EPI)AfAm >90 (>60 ml/min/1.73 sqM) Est GFR (CKD-EPI)NonAf >90 (>60 ml/min/1.73 sqM) Glucose 131 H (74-99) mg/dL Calcium 9.2 (8.4-10.2) mg/dL Magnesium 1.9 (1.6-2.3) mg/dL Total Bilirubin 0.7 (0.2-1.3) mg/dL AST 112 H (17-59) U/L ALT 104 H (21-72) U/L Alkaline Phosphatase 97 (38-126) U/L Troponin I <0.012 (0.000-0.034) ng/mL Total Protein 7.4 (6.3-8.2) g/dL Albumin 4.0 (3.5-5.0) g/dL Urine Color Urine Appearance (Clear) Urine pH (5.0-8.0) Ur Specific Morris (1.001-1.035) Urine Protein (Negative) Urine Glucose (UA) (Negative) Urine Ketones (Negative) Urine Blood (Negative) Urine Nitrite (Negative) Urine Bilirubin (Negative) Urine Urobilinogen (<2.0) mg/dL Ur Leukocyte Esterase (Negative) Valproic Acid ug/mL Influenza Type A RNA (Not Detectd) Influenza Type B (PCR) (Not Detectd) 07/03/19 07/03/19 07/03/19 Range/Units 20:51 20:51 20:51 WBC (3.8-10.6) k/uL RBC (4.30-5.90) m/uL Hgb (13.0-17.5) gm/dL Hct (39.0-53.0) % MCV (80.0-100.0) fL MCH (25.0-35.0) pg MCHC (31.0-37.0) g/dL RDW (11.5-15.5) % Plt Count (150-450) k/uL Neutrophils % % Lymphocytes % % Monocytes % % Eosinophils % % Basophils % % Neutrophils # (1.3-7.7) k/uL Lymphocytes # (1.0-4.8) k/uL Monocytes # (0-1.0) k/uL Eosinophils # (0-0.7) k/uL Basophils # (0-0.2) k/uL Sodium (137-145) mmol/L Potassium (3.5-5.1) mmol/L Chloride (98-107) mmol/L Carbon Dioxide (22-30) mmol/L Anion Gap mmol/L BUN (9-20) mg/dL Creatinine (0.66-1.25) mg/dL Est GFR (CKD-EPI)AfAm (>60 ml/min/1.73 sqM) Est GFR (CKD-EPI)NonAf (>60 ml/min/1.73 sqM) Glucose (74-99) mg/dL Calcium (8.4-10.2) mg/dL Magnesium (1.6-2.3) mg/dL Total Bilirubin (0.2-1.3) mg/dL AST (17-59) U/L ALT (21-72) U/L Alkaline Phosphatase (38-126) U/L Troponin I (0.000-0.034) ng/mL Total Protein (6.3-8.2) g/dL Albumin (3.5-5.0) g/dL Urine Color Light Yellow Urine Appearance Clear (Clear) Urine pH 7.0 (5.0-8.0) Ur Specific Morris 1.007 (1.001-1.035) Urine Protein Negative (Negative) Urine Glucose (UA) Negative (Negative) Urine Ketones Negative (Negative) Urine Blood Negative (Negative) Urine Nitrite Negative (Negative) Urine Bilirubin Negative (Negative) Urine Urobilinogen <2.0 (<2.0) mg/dL Ur Leukocyte Esterase Negative (Negative) Valproic Acid 38.1 ug/mL Influenza Type A RNA Not Detected (Not Detectd) Influenza Type B (PCR) Not Detected (Not Detectd) - Radiology Data Radiology results: report reviewed (XR shows ilues), image reviewed Disposition Clinical Impression: Dehydration, Vasovagal syncope, Abdominal pain, Ileus Disposition: ADMITTED IP TO THIS HOSP Condition: Fair Is patient prescribed a controlled substance at d/c from ED?: No Referrals: Derek Sousa MD [Primary Care Provider] - 1-2 days
[2019-07-03] MEDS ORDERED: SODIUM CHLORIDE 0.9% 1,000 ML IV STA ×2 (18:33→20:57)
[2019-07-03] MEDS ORDERED: SODIUM CHLORIDE 0.9% 500 ML 500 ML IV STA (18:33)
[2019-07-03 19:05] LABS: Basophils % (A) 0 %; Eosinophils % (A) 0 %; Lymphocytes # (A) 0.4 k/uL (1.0-4.8); Lymphocytes % (A) 2 %; MCH 32.3 pg (25.0-35.0); MCHC 34.1 g/dL (31.0-37.0); MCV 94.8 fL (80.0-100.0); Mean Platelet Volume 7.2; Monocytes # (A) 1.3 k/uL (0-1.0); Monocytes % (A) 6 %; Neutrophils # (A) 17.9 k/uL (1.3-7.7); Neutrophils % (A) 90 %; Platelet Count 176 k/uL (150-450); RBC 4.96 m/uL (4.30-5.90); RDW 12.2 % (11.5-15.5); WBC 19.8 k/uL (3.8-10.6)
[2019-07-03 19:08] LABS: ALT 104 U/L (21-72); AST 112 U/L (17-59); African American GFR (CKD) >90 (>60 ml/min/1.73 sqM); Alkaline Phosphatase 97 U/L (38-126); Anion Gap 8 mmol/L; Blood Urea Nitrogen 16 mg/dL (9-20); Calcium 9.2 mg/dL (8.4-10.2); Carbon Dioxide 24 mmol/L (22-30); Chloride 107 mmol/L (98-107); Glucose 131 mg/dL (74-99); Magnesium 1.9 mg/dL (1.6-2.3); Non-African American GFR(CKD) >90 (>60 ml/min/1.73 sqM); Potassium 4.4 mmol/L (3.5-5.1); Sodium 139 mmol/L (137-145); Total Bilirubin 0.7 mg/dL (0.2-1.3); Total Protein 7.4 g/dL (6.3-8.2)
--- NOTE | 2019-07-03 19:45 | XR ---
EXAMINATION TYPE: XR abdomen acute w cxr DATE OF EXAM: 07/03/2019 COMPARISON: NONE HISTORY: Weakness and near syncope TECHNIQUE: Supine and upright views of the abdomen with single frontal view of the chest. FINDINGS: There are low lung volumes exaggerating the pulmonary vasculature. Cardiomediastinal silhou ette is within normal limits. No focal consolidation, pleural effusion or pneumothorax. Gaseous filli ng of multiple loops of small and large bowel without dilation. Paucity of bowel gas and the rectum. No evidence of pneumoperitoneum. IMPRESSION: 1. No acute cardiopulmonary process. 2. Gaseous filling of loops of large and small bowel with no dilation. Ileus is suspected.
[2019-07-03 21:05] LABS: Appearance,Urine Clear (Clear); Bilirubin,Urine Negative (Negative); Blood,Urine Negative (Negative); Color,Urine Light Yellow; Glucose,Urine (UA) Negative (Negative); Ketones,Urine Negative (Negative); Leukocyte Esterase,Urine Negative (Negative); Nitrite,Urine Negative (Negative); Protein,Urine Negative (Negative); Specific Gravity,Urine 1.007 (1.001-1.035); Urobilinogen,Urine <2.0 mg/dL (<2.0)
[2019-07-03] MEDS ORDERED: SODIUM CHLORIDE 0.9% 1,000 ML IV ONE (22:51)
[2019-07-03] MEDS ORDERED: GLYCERIN ADULT SUPPOSITORY 1 EACH RECTAL STA (22:51)
[2019-07-03] MEDS ORDERED: PRAMOX-CALAMINE 1-8% LOTION 1 APPLIC/5 ML LOTION TOPICAL PRN (23:53)
--- NOTE | 2019-07-04 00:02 | CT ---
EXAMINATION TYPE: CT abdomen pelvis w con DATE OF EXAM: 07/03/2019 COMPARISON: None HISTORY: Abd pain CT DLP: 1033.50 mGycm Automated exposure control for dose reduction was used. CONTRAST: Performed with IV Contrast, patient injected with 100 mL of Isovue 300. FINDINGS: There is minimal subsegmental atelectasis left lung base. Heart size is normal. There is no pericardi al effusion. Liver spleen stomach pancreas gallbladder appear normal. Bile ducts are not dilated. There is no adrenal mass. Kidneys show satisfactory contrast opacification. There is 3 mm calculus po sterior left kidney. There is some fullness of the left and right renal pelvis. The ureters are not d ilated. Delayed images show fairly normal contrast excretion. There is no retroperitoneal adenopathy. Ureters are not dilated. Bladder distends smoothly. There is some prostatic calcification. There is no inguinal hernia. There is no free fluid in the pelvis. There is no sign of a bowel obstruction. There is no mesenteric edema. There is no ascites or free ai r. The appendix appears normal. There is thoracolumbar levorotoscoliosis deformity. I see no compression fracture. The bony pelvis is intact. There is no lumbar paraspinal mass. IMPRESSION: Minimal subsegmental atelectasis at the lung bases. Nonobstructing calculus left kidney. No renal obs truction. Normal appendix. Scoliotic deformity.
[2019-07-04] MEDS: LORazepam 1 MG TAB PO SCH ×3 (01:24→12:05)
[2019-07-04] MEDS: VALPROIC ACID ORAL SOLN 250 MG/5 ML CUP PO SCH ×2 (01:24→07:26)
[2019-07-04] MEDS ORDERED: LORazepam 1 MG TAB PO SCH (07:00)
[2019-07-04] MEDS ORDERED: PANTOPRAZOLE 40 MG TABLET PO SCH (07:00)
[2019-07-04] MEDS ORDERED: VALPROIC ACID ORAL SOLN 250 MG/5 ML CUP PO SCH (08:00)
[2019-07-04] MEDS ORDERED: CARBAMAZEPINE 200 MG PO SCH (08:00)
[2019-07-04] MEDS ORDERED: ENOXAPARIN 40 MG/0.4 ML SYRINGE SQ SCH (09:00)
[2019-07-04] MEDS ORDERED: GLYCERIN ADULT SUPPOSITORY 1 EACH RECTAL SCH (09:00)
[2019-07-04] MEDS ORDERED: ACETAMINOPHEN TAB 325 MG TAB PO PRN (10:11)
[2019-07-04] MEDS ORDERED: CLOTRIMAZOLE/BETAMETH 1-0.05% CREAM 45 GM TUBE TOPICAL PRN (10:11)
[2019-07-04] MEDS ORDERED: NYSTATIN 100,000UNIT/GM CREAM 30 GM TUBE TOPICAL PRN (10:11)
[2019-07-04] MEDS ORDERED: carBAMazepine 200 MG TAB PO SCH (11:00)
[2019-07-04 12:58] VITALS: BP 109/74; PULSE 81; RESP 20; TEMP 97.9
--- NOTE | 2019-07-04 15:56 | P.GSCN ---
History of Present Illness Consult date: 07/04/19 History of present illness: CHIEF COMPLAINT: Ileus HISTORY OF PRESENT ILLNESS: 49-year-old male who was admitted to the hospital for near syncopal episode. General surgery was consulted for possible ileus. Patient examined at the bedside. Patient reports having a large bowel movement. He is tolerating a regular diet. Denies abdominal pain. Denies nausea or vomiting. PAST MEDICAL HISTORY: See list. PAST SURGICAL HISTORY: See list. SOCIAL HISTORY: No illicit drug use. REVIEW OF SYSTEMS: CONSTITUTIONAL: Denies fever or chills. HEENT: Denies blurred vision, vision changes, or eye pain. Denies hemoptysis CARDIOVASCULAR: Denies chest pain or pressure. RESPIRATORY: No shortness of breath. GASTROINTESTINAL: Refer to HPI for pertinent findings HEMATOLOGIC: Denies bleeding disorders. GENITOURINARY: Denies any blood in urine. SKIN: Denies pruitis. Denies rash. PHYSICAL EXAM: VITAL SIGNS: Reviewed. GENERAL: Well-developed in no acute distress. HEENT: No sclera icterus. Extraocular movements grossly intact. Moist buccal mucosa. Head is atraumatic, normocephalic. ABDOMEN: Soft. Nondistended. Nontender. NEUROLOGIC: Alert and oriented. LABORATORY DATA: WBC 19.8. Hemoglobin 16.0. IMAGING: CT abdomen and pelvis: No sign of bowel obstruction. No ascites or free air. ASSESSMENT: 1. Possible ileus, resolved PLAN: Continue diet as tolerated. No surgical regimen recommended. Stable for discharge from a surgical stand point. We will sign off. Please read consult if needed. Nurse practitioner note has been reviewed by physician. Signing provider agrees with the documented findings, assessment, and plan of care. Past Medical History Past Medical History: GERD/Reflux, Hyperlipidemia Additional Past Medical History / Comment(s): AUTISM, MENTALLY LIKE A 6 YEAR OLD.,NON-VERBAL (WILL ANSWER YES TO ALL QUESTIONS).,SCOLIOSIS, SCHUFFLES WHEN HE WALKS., RECENT EGD UNDER ANESTHESIA TO REMOVE FOOD THAT WAS STUCK IN HIS THROAT (03/28/18). , RESIDES AT [facility] (PHONE # [phone])., HAVING OCCASIONAL BLOOD IN STOOLS., LEGAL GUARDIAN IS HIS SISTER- LIBIA LEADER # [phone]. History of Any Multi-Drug Resistant Organisms: None Reported Additional Past Surgical History / Comment(s): HEMORROIDECTOMY, EGD WITH ANESTHESIA. Past Anesthesia/Blood Transfusion Reactions: No Reported Reaction Past Psychological History: Anxiety Additional Psychological History / Comment(s): AUTISM Smoking Status: Never smoker Past Alcohol Use History: None Reported Past Drug Use History: None Reported - Past Family History Mother Family Medical History: Diabetes Mellitus Father Family Medical History: Cancer Additional Family Medical History / Comment(s): BONE AND LIVER Medications and Allergies Home Medications Medication Instructions Recorded Confirmed Type Sennosides [Senna] 17.2 mg PO HS@2100 03/27/18 07/03/19 History Pantoprazole [Protonix] 40 mg PO BID@0700,1700 04/12/18 07/03/19 History Cholecalciferol (Vitamin D3) 2,000 unit PO DAILY@0700 09/20/18 07/03/19 History [Vitamin D3] Valproic Acid Oral Soln [Depakene 500 mg PO BID@0800,199909/20/18 07/03/19 History Syrup] Acetaminophen Tab [Tylenol] 650 mg PO Q6H PRN 11/09/18 07/03/19 History Carbamide Peroxide [Debrox Otic] 6 drops BOTH EARS Q30D 11/09/18 07/03/19 History Clotrimazole/Betamethasone Dip 1 applic TOPICAL DAILY PRN 11/09/18 07/03/19 History [Lotrisone Cream] Polyethylene Glycol 3350 [Miralax] 17 gm PO DAILY@0700 11/09/18 07/03/19 History Brompheniramine/Phenylephrine 20 ml PO Q4H PRN 07/03/19 07/03/19 History [Dimetapp Cold & Allergy Elixir] LORazepam [Ativan] 1 mg PO TID@0700,1300,1900 07/03/19 07/03/19 History Nystatin 100,000Unit/gm Cream 1 applic TOPICAL BID PRN 07/03/19 07/03/19 History [Mycostatin Cream] Pramox-Calamine 1-8% Lotion 1 applic TOPICAL DAILY PRN 07/03/19 07/03/19 History [Caladryl] carBAMazepine [TEGretol Susp] 200 mg PO BID@0800,199907/03/19 07/03/19 History Allergies Allergy/AdvReac Type Severity Reaction Status Date / Time No Known Allergies Allergy Verified 07/03/19 19:49 Surgical - Exam Vital Signs Temp Pulse Resp BP Pulse Ox 98.2 F 101 H 18 106/70 95 07/03/19 18:15 07/03/19 18:15 07/03/19 18:15 07/03/19 18:15 07/03/19 18:15 Results - Labs 07/03/19 18:40 07/03/19 18:40 Abnormal Lab Results - Last 24 Hours (Table) 07/03/19 07/03/19 Range/Units 18:40 18:40 WBC 19.8 H (3.8-10.6) k/uL Neutrophils # 17.9 H (1.3-7.7) k/uL Lymphocytes # 0.4 L (1.0-4.8) k/uL Monocytes # 1.3 H (0-1.0) k/uL Glucose 131 H (74-99) mg/dL AST 112 H (17-59) U/L ALT 104 H (21-72) U/L Diabetes panel 07/03/19 Range/Units 18:40 Sodium 139 (137-145) mmol/L Potassium 4.4 (3.5-5.1) mmol/L Chloride 107 (98-107) mmol/L Carbon Dioxide 24 (22-30) mmol/L BUN 16 (9-20) mg/dL Creatinine 0.89 (0.66-1.25) mg/dL Glucose 131 H (74-99) mg/dL Calcium 9.2 (8.4-10.2) mg/dL AST 112 H (17-59) U/L ALT 104 H (21-72) U/L Alkaline Phosphatase 97 (38-126) U/L Total Protein 7.4 (6.3-8.2) g/dL Albumin 4.0 (3.5-5.0) g/dL Calcium panel 07/03/19 Range/Units 18:40 Calcium 9.2 (8.4-10.2) mg/dL Albumin 4.0 (3.5-5.0) g/dL Pituitary panel 07/03/19 Range/Units 18:40 Sodium 139 (137-145) mmol/L Potassium 4.4 (3.5-5.1) mmol/L Chloride 107 (98-107) mmol/L Carbon Dioxide 24 (22-30) mmol/L BUN 16 (9-20) mg/dL Creatinine 0.89 (0.66-1.25) mg/dL Glucose 131 H (74-99) mg/dL Calcium 9.2 (8.4-10.2) mg/dL Adrenal panel 07/03/19 Range/Units 18:40 Sodium 139 (137-145) mmol/L Potassium 4.4 (3.5-5.1) mmol/L Chloride 107 (98-107) mmol/L Carbon Dioxide 24 (22-30) mmol/L BUN 16 (9-20) mg/dL Creatinine 0.89 (0.66-1.25) mg/dL Glucose 131 H (74-99) mg/dL Calcium 9.2 (8.4-10.2) mg/dL Total Bilirubin 0.7 (0.2-1.3) mg/dL AST 112 H (17-59) U/L ALT 104 H (21-72) U/L Alkaline Phosphatase 97 (38-126) U/L Total Protein 7.4 (6.3-8.2) g/dL Albumin 4.0 (3.5-5.0) g/dL
--- NOTE | 2019-07-04 19:54 | P.HPIM ---
History of Present Illness H&P Date: 07/04/19 Chief Complaint: Nearly passed out History of presenting complaint: This is a pleasant 49-year-old patient who follows with Dr. Sousa. Chronic stable medical conditions include GERD, hyperlipidemia, cortisone. Patient's a mental age of approximately 6 years of age. History is obtained by patient's sister the bedside who is also was also the power of corporate associate attorney. Sometimes goes without the BMs to 3 days. Normally walks around with a shuffled gait. Able to feed himself. On this occasion patient, not had a bowel movement for to 3 days. Was in the bathroom and exerting himself no bowel movement. Patient noticed to become sweaty pale and weak and nearly passed out. baseline is only say yes toquestion. Patient never passed out diet did not appear to be in chest pain. There was no seizure activity noted. Patient is given IV fluids. According to sister patient nearly back to his baseline this morning. Review of systems cannot be done as patient doesn't say much Past medical history to include: GERD, hyperlipidemia, autism, constipation Social history: Lives at [facility]. No smoking". Patient's sister Suzan is the POA Physical examination: VITAL SIGNS: 97.6, 67, 18, 136/69, 99% room air GENERAL: BMI 22.8, laying in bed, comfortable. EYES: Pupils equal. Conjunctiva normal. HEENT: External appearance of nose and ears normal, oral cavity grossly normal. NECK: JVD not raised; masses not palpable. HEART: First and second heart sounds are normal; no edema. LUNGS: Respiratory rate normal; clear to auscultation. ABDOMEN: Soft, nontender, liver spleen not palpable, no masses palpable. PSYCH: Doesn't answer questions but says yes and does follow simple commandsl. NEUROLOGICAL: Cranial nerves grossly intact; no facial asymmetry, power and sensation grossly intact., Moving all 4 limbs LYMPHATICS: No lymph nodes palpable in the axilla and neck Assessment: -Probably near syncope from patient exerting himself to have her defecation. There was no chest pain exhibited, double no seizure activity. Likely vasovagal -Autism with a mental age of 6 -GERD -Hyperlipidemia Plan: Care was discussed with sisterSuzan at the bedside. Diet will be advanced as tolerated. Given IV fluids. Past Medical History Past Medical History: GERD/Reflux, Hyperlipidemia Additional Past Medical History / Comment(s): AUTISM, MENTALLY LIKE A 6 YEAR OLD.,NON-VERBAL (WILL ANSWER YES TO ALL QUESTIONS).,SCOLIOSIS, SCHUFFLES WHEN HE WALKS., RECENT EGD UNDER ANESTHESIA TO REMOVE FOOD THAT WAS STUCK IN HIS THROAT (03/28/18). , RESIDES AT [facility] (PHONE # [phone])., HAVING OCCASIONAL BLOOD IN STOOLS., LEGAL GUARDIAN IS HIS SISTER- SUZAN LEADER # [phone]. History of Any Multi-Drug Resistant Organisms: None Reported Additional Past Surgical History / Comment(s): HEMORROIDECTOMY, EGD WITH ANESTHESIA. Past Anesthesia/Blood Transfusion Reactions: No Reported Reaction Past Psychological History: Anxiety Additional Psychological History / Comment(s): AUTISM Smoking Status: Never smoker Past Alcohol Use History: None Reported Past Drug Use History: None Reported - Past Family History Mother Family Medical History: Diabetes Mellitus Father Family Medical History: Cancer Additional Family Medical History / Comment(s): BONE AND LIVER Medications and Allergies Home Medications Medication Instructions Recorded Confirmed Type Sennosides [Senna] 17.2 mg PO HS@2100 03/27/18 07/03/19 History Pantoprazole [Protonix] 40 mg PO BID@0700,1700 04/12/18 07/03/19 History Cholecalciferol (Vitamin D3) 2,000 unit PO DAILY@0700 09/20/18 07/03/19 History [Vitamin D3] Valproic Acid Oral Soln [Depakene 500 mg PO BID@0800,2000 09/20/18 07/03/19 History Syrup] Acetaminophen Tab [Tylenol] 650 mg PO Q6H PRN 11/09/18 07/03/19 History Carbamide Peroxide [Debrox Otic] 6 drops BOTH EARS Q30D 11/09/18 07/03/19 History Clotrimazole/Betamethasone Dip 1 applic TOPICAL DAILY PRN 11/09/18 07/03/19 History [Lotrisone Cream] Polyethylene Glycol 3350 [Miralax] 17 gm PO DAILY@0700 11/09/18 07/03/19 History Brompheniramine/Phenylephrine 20 ml PO Q4H PRN 07/03/19 07/03/19 History [Dimetapp Cold & Allergy Elixir] LORazepam [Ativan] 1 mg PO TID@0700,1300,1900 07/03/19 07/03/19 History Nystatin 100,000Unit/gm Cream 1 applic TOPICAL BID PRN 07/03/19 07/03/19 History [Mycostatin Cream] Pramox-Calamine 1-8% Lotion 1 applic TOPICAL DAILY PRN 07/03/19 07/03/19 History [Caladryl] carBAMazepine [TEGretol Susp] 200 mg PO BID@0800,199907/03/19 07/03/19 History Allergies Allergy/AdvReac Type Severity Reaction Status Date / Time No Known Allergies Allergy Verified 07/03/19 19:49 Physical Exam Vitals: Vital Signs Temp Pulse Pulse Resp BP BP Pulse Ox 07/04/19 05:12 97.7 F 75 16 94/64 95 07/04/19 00:15 98.3 F 96 22 112/71 92 L 07/03/19 23:49 92 18 130/90 96 07/03/19 20:58 93 18 114/80 97 07/03/19 18:15 98.2 F 101 H 18 106/70 95 Intake and Output 07/03/19 07/04/19 07/04/19 22:59 06:59 14:59 Other: Voiding Method Toilet # Voids 2 # Bowel Movements 1 Weight 86.183 kg 76.204 kg Results CBC & Chem 7: 07/03/19 18:40 07/03/19 18:40 Labs: Abnormal Lab Results - Last 24 Hours (Table) 07/03/19 07/03/19 Range/Units 18:40 18:40 WBC 19.8 H (3.8-10.6) k/uL Neutrophils # 17.9 H (1.3-7.7) k/uL Lymphocytes # 0.4 L (1.0-4.8) k/uL Monocytes # 1.3 H (0-1.0) k/uL Glucose 131 H (74-99) mg/dL AST 112 H (17-59) U/L ALT 104 H (21-72) U/L Thrombosis Risk Factor Assmnt - Choose All That Apply Any of the Below Risk Factors Present?: Yes Each Factor Represents 1 point: Age 41-60 years Other Risk Factors: No Other congenital or acquired thrombophilia - If yes, enter type in comment: No Thrombosis Risk Factor Assessment Total Risk Factor Score: 1 Thrombosis Risk Factor Assessment Level: Low Risk
--- NOTE | 2019-07-04 19:57 | P.DS ---
Providers Date of admission: 07/03/19 22:51 Expected date of discharge: 07/04/19 Attending physician: Wilmar Rangel Consults: 07/03/19 22:51 Consult Physician Routine Consulting Provider: Marcial Espana Consult Reason/Comments: ileus Do you want consulting provider notified?: Yes Primary care physician: Derek Sousa [facility] Course: Chief Complaint: Nearly passed out Hospital course: This is a pleasant 49-year-old patient who follows with Dr. Sousa. Chronic stable medical conditions include GERD, hyperlipidemia, cortisone. Patient's a mental age of approximately 6 years of age. History is obtained by patient's sister the bedside who is also was also the power of state attorney. Sometimes goes without the BMs to 3 days. Normally walks around with a shuffled gait. Able to feed himself. On this occasion patient, not had a bowel movement for to 3 days. Was in the bathroom and exerting himself no bowel movement. Patient noticed to become sweaty pale and weak and nearly passed out. baseline is only say yes toquestion. Patient never passed out diet did not appear to be in chest pain. There was no seizure activity noted. Patient is given IV fluids. According to sister patient nearly back to his baseline this morning. Patient did well. Did tolerate his diet. Care with IV fluids. Told to increase fiber intake. Consultation: Dr. Espana from general surgery Physical examination: VITAL SIGNS: 97.9, 81, 20, 109/74, 97% room air GENERAL: BMI 22.8, laying in bed, comfortable. EYES: Pupils equal. Conjunctiva normal. HEENT: External appearance of nose and ears normal, oral cavity grossly normal. NECK: JVD not raised; masses not palpable. HEART: First and second heart sounds are normal; no edema. LUNGS: Respiratory rate normal; clear to auscultation. ABDOMEN: Soft, nontender, liver spleen not palpable, no masses palpable. PSYCH: Doesn't answer questions but says yes and does follow simple commandsl. NEUROLOGICAL: Cranial nerves grossly intact; no facial asymmetry, power and sensation grossly intact., Moving all 4 limbs Assessment: -Probably near syncope from patient exerting himself to have her defecation. There was no chest pain exhibited, double no seizure activity. Likely vasovagal -Chronic constipation -Autism with a mental age of 6 -GERD -Hyperlipidemia Disposition: jail Patient Condition at Discharge: Fair Plan - Discharge Summary Discharge Rx Participant: No New Discharge Prescriptions: Continue Sennosides [Senna] 17.2 mg PO HS@2100 Pantoprazole [Protonix] 40 mg PO BID@0700,1700 Valproic Acid Oral Soln [Depakene Syrup] 500 mg PO BID@08,1999 Cholecalciferol (Vitamin D3) [Vitamin D3] 2,000 unit PO DAILY@0700 Acetaminophen Tab [Tylenol] 650 mg PO Q6H PRN PRN Reason: Fever And/ Or Pain Polyethylene Glycol 3350 [Miralax] 17 gm PO DAILY@0700 Clotrimazole/Betamethasone Dip [Lotrisone Cream] 1 applic TOPICAL DAILY PRN PRN Reason: GROIN Carbamide Peroxide [Debrox Otic] 6 drops BOTH EARS Q30D Nystatin 100,000Unit/gm Cream [Mycostatin Cream] 1 applic TOPICAL BID PRN PRN Reason: GROIN Brompheniramine/Phenylephrine [Dimetapp Cold & Allergy Elixir] 20 ml PO Q4H PRN PRN Reason: COLD/ALLERGY SYMPTOMS Pramox-Calamine 1-8% Lotion [Caladryl] 1 applic TOPICAL DAILY PRN PRN Reason: INSECT BITES LORazepam [Ativan] 1 mg PO TID@0700,1300,1900 carBAMazepine [TEGretol Susp] 200 mg PO BID@0800,1999 Discharge Medication List Sennosides [Senna] 17.2 mg PO HS@2100 03/27/18 [History] Pantoprazole [Protonix] 40 mg PO BID@0700,1700 04/12/18 [History] Cholecalciferol (Vitamin D3) [Vitamin D3] 2,000 unit PO DAILY@0700 09/20/18 [History] Valproic Acid Oral Soln [Depakene Syrup] 500 mg PO BID@08,199909/20/18 [History] Acetaminophen Tab [Tylenol] 650 mg PO Q6H PRN 11/09/18 [History] Carbamide Peroxide [Debrox Otic] 6 drops BOTH EARS Q30D 11/09/18 [History] Clotrimazole/Betamethasone Dip [Lotrisone Cream] 1 applic TOPICAL DAILY PRN 11/09/18 [History] Polyethylene Glycol 3350 [Miralax] 17 gm PO DAILY@0700 11/09/18 [History] Brompheniramine/Phenylephrine [Dimetapp Cold & Allergy Elixir] 20 ml PO Q4H PRN 07/03/19 [History] LORazepam [Ativan] 1 mg PO TID@0700,1300,1900 07/03/19 [History] Nystatin 100,000Unit/gm Cream [Mycostatin Cream] 1 applic TOPICAL BID PRN 07/03/19 [History] Pramox-Calamine 1-8% Lotion [Caladryl] 1 applic TOPICAL DAILY PRN 07/03/19 [History] carBAMazepine [TEGretol Susp] 200 mg PO BID@0800,2000 07/03/19 [History] Follow up Appointment(s)/Referral(s): Derek Sousa MD [Primary Care Provider] - 1-2 days Patient Instructions/Handouts: Constipation (DC) Activity/Diet/Wound Care/Special Instructions: [facility] will transport home [phone]. Discharge Disposition: HOME SELF-CARE
[2019-07-04] MEDS ORDERED: SENNOSIDES 8.6 MG TAB PO SCH (21:00)
[2019-07-05] MEDS ORDERED: POLYETHYLENE GLYCOL 3350 17 GM POWD.PACK PO SCH (07:00)
[2019-08-02] MEDS ORDERED: CARBAMIDE PEROXIDE 6.5% DROPS 15 ML BTL BOTH EARS SCH (09:00)
== END 2019-07-04 15:58 | disposition home or self-care (01) ==
LOC: EC 18:08 → 4MS4W 22:51 → INTOOBSV 22:51 → 4MS4W 23:23
PROVIDERS: ADMIT Hospitalist; ATTEND Hospitalist
DX: R53.1 Weakness (principal); E78.5 Hyperlipidemia, unspecified; E86.0 Dehydration; F41.9 Anxiety disorder, unspecified; F84.0 Autistic disorder; K21.9 Gastro-esophageal reflux disease without esophagitis; M41.9 Scoliosis, unspecified; Z79.899 Other long term (current) drug therapy; Z83.3 Family history of diabetes mellitus; K59.00 Constipation, unspecified
CPT/HCPCS: 96361 ×2; 96372; 96360; 99285; 36415; 93005; 80164; 80053; 83735; 84484; 85025; 81003; 87502; 74022; 74177; J1650; Q9967

== ENCOUNTER 2021-04-26 19:47 | Emergency (ER) | payer MEDICARE, OTHER ==
[2021-04-26 19:55] VITALS: RESP 16; TEMP 98.6
[2021-04-26] MEDS ORDERED: SODIUM CHLORIDE 0.9% 500 ML 500 ML IV STA (20:14)
--- NOTE | 2021-04-26 20:47 | ED ---
General Adult HPI - General Chief complaint: Urogenital Stated complaint: Flank Pain Time Seen by Provider: 04/26/21 20:07 Source: patient, EMS, Caregiver Mode of arrival: EMS Limitations: altered mental status - History of Present Illness Initial comments: Is a very pleasant 51-year-old autistic male who is brought to the ER today by his caregiver with concern that he's been experiencing some lower abdominal or right hip pain. Caregiver reports that he is not acting like himself, he appeared to be uncomfortable was hunched over starting yesterday at dinner time. He didn't come to breakfast this morning because of apparent pain. He is not eating or drinking well. - Related Data Home Medications Medication Instructions Recorded Confirmed Sennosides [Senna] 8.6 mg PO BID@0700,209903/27/18 04/26/21 Pantoprazole [Protonix] 40 mg PO DAILY@0700 04/12/18 04/26/21 Cholecalciferol (Vitamin D3) 2,000 unit PO DAILY@0700 09/20/18 04/26/21 [Vitamin D3] Valproic Acid Oral Soln [Depakene 1,000 mg PO BID@0700,209909/20/18 04/26/21 Syrup] Acetaminophen Tab [Tylenol] 325 - 650 mg PO Q4H PRN 11/09/18 04/26/21 Clotrimazole/Betamethasone Dip 1 applic TOPICAL DAILY PRN 11/09/18 04/26/21 [Lotrisone Cream] polyethylene glycoL 3350 [Miralax] 17 gm PO Q72H 11/09/18 04/26/21 Brompheniramine/Phenylephrine 1 dose PO DIRECTED PRN 07/03/19 04/26/21 [Dimetapp Cold & Allergy Elixir] Nystatin 100,000Unit/gm Cream 1 applic TOPICAL BID PRN 07/03/19 04/26/21 [Mycostatin Cream] Pramox-Calamine 1-8% Lotion 1 applic TOPICAL DAILY PRN 07/03/19 04/26/21 [Caladryl] carBAMazepine [TEGretol Susp] 300 mg PO BID@0700,2100 07/03/19 04/26/21 ALPRAZolam [Xanax] 1 mg PO TID@0600,1200,1700 04/26/21 04/26/21 Atorvastatin [Lipitor] 20 mg PO HS@209904/26/21 04/26/21 Burn Relief Spr 0.5% 1 dose TOPICAL DIRECTED PRN 04/26/21 04/26/21 Colloidal Oatmeal [Eucerin Eczema 1 applic TOPICAL DIRECTED 04/26/21 04/26/21 Relief] Hydrocortisone Cream 1 applic TOPICAL HS@209904/26/21 04/26/21 [Hydrocortisone 2.5% Cream] [place]-3 Acid Ethyl Esters [Lovaza] 1 gm PO BID@0700,1900 04/26/21 04/26/21 Selsun Blue Shampoo 1 applic TOPICAL DIRECTED PRN 04/26/21 04/26/21 Vortioxetine Hydrobromide 10 mg PO DAILY@0700 04/26/21 04/26/21 [Trintellix] guaiFENesin-DM 100-10MG/5ML 1 dose PO DIRECTED PRN 04/26/21 04/26/21 [Robitussin DM] Allergies Allergy/AdvReac Type Severity Reaction Status Date / Time No Known Allergies Allergy Verified 04/26/21 20:48 Review of Systems ROS Statement: Those systems with pertinent positive or pertinent negative responses have been documented in the HPI. ROS Other: All systems not noted in ROS Statement are negative. Past Medical History Past Medical History: GERD/Reflux, Hyperlipidemia Additional Past Medical History / Comment(s): AUTISM, MENTALLY LIKE A 6 YEAR OLD.,NON-VERBAL (WILL ANSWER YES TO ALL QUESTIONS).,SCOLIOSIS, SCHUFFLES WHEN HE WALKS., RECENT EGD UNDER ANESTHESIA TO REMOVE FOOD THAT WAS STUCK IN HIS THROAT (03/28/18). , RESIDES AT [facility] (PHONE # [phone])., HAVING OCCASIONAL BLOOD IN STOOLS., LEGAL GUARDIAN IS HIS SISTER- LIBIA LEADER # [phone]. History of Any Multi-Drug Resistant Organisms: None Reported Additional Past Surgical History / Comment(s): HEMORROIDECTOMY, EGD WITH ANESTHESIA. Past Anesthesia/Blood Transfusion Reactions: No Reported Reaction Past Psychological History: Anxiety Smoking Status: Never smoker Past Alcohol Use History: None Reported Past Drug Use History: None Reported - Past Family History Mother Family Medical History: Diabetes Mellitus Father Family Medical History: Cancer Additional Family Medical History / Comment(s): BONE AND LIVER General Exam - General Exam Comments Initial Comments: Physical Exam GENERAL: Patient is well-developed and well-nourished. Patient is nontoxic and well- hydrated and is in no distress. HENT: Normocephalic, Atraumatic. EYES: PERRL, EOMI PULMONARY: Unlabored respirations. No audible rales rhonchi or wheezing was noted. CARDIOVASCULAR: There is a regular rate and rhythm without any murmurs gallops or rubs. ABDOMEN: Soft and nontender with normal bowel sounds. SKIN: Skin is clear with no lesions or rashes and otherwise unremarkable. : Deferred NEUROLOGIC: Oriented to self, recognizes caregiver Moving all extremities MUSCULOSKELETAL: Normal extremities with adequate strength and full range of motion. No lower extremity swelling or edema. No calf tenderness. PSYCHIATRIC: Unable to assess Limitations: altered mental status Course Vital Signs 04/26/21 19:49 Temperature 98.6 F Pulse Rate 80 Respiratory 16 Rate Blood Pressure 151/95 O2 Sat by Pulse 96 Oximetry Medical Decision Making - Lab Data Result diagrams: 04/26/21 20:36 04/26/21 20:36 Lab Results 04/26/21 04/26/21 04/26/21 Range/Units 20:36 20:36 20:36 WBC 7.7 (3.8-10.6) k/uL RBC 4.52 (4.30-5.90) m/uL Hgb 14.4 (13.0-17.5) gm/dL Hct 42.2 (39.0-53.0) % MCV 93.5 (80.0-100.0) fL MCH 31.8 (25.0-35.0) pg MCHC 34.0 (31.0-37.0) g/dL RDW 12.3 (11.5-15.5) % Plt Count 216 (150-450) k/uL MPV 8.1 Neutrophils % 63 % Lymphocytes % 24 % Monocytes % 10 % Eosinophils % 0 % Basophils % 1 % Neutrophils # 4.8 (1.3-7.7) k/uL Lymphocytes # 1.8 (1.0-4.8) k/uL Monocytes # 0.8 (0-1.0) k/uL Eosinophils # 0.0 (0-0.7) k/uL Basophils # 0.0 (0-0.2) k/uL Sodium 139 (137-145) mmol/L Potassium 4.1 (3.5-5.1) mmol/L Chloride 106 (98-107) mmol/L Carbon Dioxide 23 (22-30) mmol/L Anion Gap 10 mmol/L BUN 15 (9-20) mg/dL Creatinine 0.93 (0.66-1.25) mg/dL Est GFR (CKD-EPI)AfAm >90 (>60 ml/min/1.73 sqM) Est GFR (CKD-EPI)NonAf >90 (>60 ml/min/1.73 sqM) Glucose 127 H (74-99) mg/dL Plasma Lactic Acid Gilberto (0.7-2.0) mmol/L Calcium 9.4 (8.4-10.2) mg/dL Total Bilirubin 0.3 (0.2-1.3) mg/dL AST 25 (17-59) U/L ALT 30 (4-49) U/L Alkaline Phosphatase 86 (38-126) U/L Total Protein 7.1 (6.3-8.2) g/dL Albumin 3.8 (3.5-5.0) g/dL Lipase 65 (23-300) U/L Urine Color Yellow Urine Appearance Clear (Clear) Urine pH 6.5 (5.0-8.0) Ur Specific [place] 1.025 (1.001-1.035) Urine Protein 1+ H (Negative) Urine Glucose (UA) Negative (Negative) Urine Ketones Negative (Negative) Urine Blood Negative (Negative) Urine Nitrite Negative (Negative) Urine Bilirubin Negative (Negative) Urine Urobilinogen <2.0 (<2.0) mg/dL Ur Leukocyte Esterase Negative (Negative) Urine WBC 1 (0-5) /hpf Amorphous Sediment Rare H (None) /hpf Urine Mucus Rare H (None) /hpf 04/26/21 Range/Units 20:36 WBC (3.8-10.6) k/uL RBC (4.30-5.90) m/uL Hgb (13.0-17.5) gm/dL Hct (39.0-53.0) % MCV (80.0-100.0) fL MCH (25.0-35.0) pg MCHC (31.0-37.0) g/dL RDW (11.5-15.5) % Plt Count (150-450) k/uL MPV Neutrophils % % Lymphocytes % % Monocytes % % Eosinophils % % Basophils % % Neutrophils # (1.3-7.7) k/uL Lymphocytes # (1.0-4.8) k/uL Monocytes # (0-1.0) k/uL Eosinophils # (0-0.7) k/uL Basophils # (0-0.2) k/uL Sodium (137-145) mmol/L Potassium (3.5-5.1) mmol/L Chloride (98-107) mmol/L Carbon Dioxide (22-30) mmol/L Anion Gap mmol/L BUN (9-20) mg/dL Creatinine (0.66-1.25) mg/dL Est GFR (CKD-EPI)AfAm (>60 ml/min/1.73 sqM) Est GFR (CKD-EPI)NonAf (>60 ml/min/1.73 sqM) Glucose (74-99) mg/dL Plasma Lactic Acid Gilberto 2.4 H* (0.7-2.0) mmol/L Calcium (8.4-10.2) mg/dL Total Bilirubin (0.2-1.3) mg/dL AST (17-59) U/L ALT (4-49) U/L Alkaline Phosphatase (38-126) U/L Total Protein (6.3-8.2) g/dL Albumin (3.5-5.0) g/dL Lipase (23-300) U/L Urine Color Urine Appearance (Clear) Urine pH (5.0-8.0) Ur Specific [place] (1.001-1.035) Urine Protein (Negative) Urine Glucose (UA) (Negative) Urine Ketones (Negative) Urine Blood (Negative) Urine Nitrite (Negative) Urine Bilirubin (Negative) Urine Urobilinogen (<2.0) mg/dL Ur Leukocyte Esterase (Negative) Urine WBC (0-5) /hpf Amorphous Sediment (None) /hpf Urine Mucus (None) /hpf Disposition Clinical Impression: Abdominal pain Disposition: HOME SELF-CARE Condition: Stable Instructions (If sedation given, give patient instructions): Abdominal Pain (ED) Is patient prescribed a controlled substance at d/c from ED?: No Referrals: Derek Sousa MD [Primary Care Provider] - 1-2 days
[2021-04-26 20:53] LABS: Basophils % (A) 1 %; Eosinophils % (A) 0 %; HCT 42.2 % (39.0-53.0); HGB 14.4 gm/dL (13.0-17.5); Lymphocytes # (A) 1.8 k/uL (1.0-4.8); Lymphocytes % (A) 24 %; MCH 31.8 pg (25.0-35.0); MCV 93.5 fL (80.0-100.0); Mean Platelet Volume 8.1; Monocytes # (A) 0.8 k/uL (0-1.0); Monocytes % (A) 10 %; Neutrophils # (A) 4.8 k/uL (1.3-7.7); Neutrophils % (A) 63 %; Platelet Count 216 k/uL (150-450); RBC 4.52 m/uL (4.30-5.90); RDW 12.3 % (11.5-15.5); WBC 7.7 k/uL (3.8-10.6)
[2021-04-26 21:26] LABS: Amorphous Sediment,Urine Rare /hpf; Appearance,Urine Clear (Clear); Bilirubin,Urine Negative (Negative); Blood,Urine Negative (Negative); Color,Urine Yellow; Glucose,Urine (UA) Negative (Negative); Ketones,Urine Negative (Negative); Leukocyte Esterase,Urine Negative (Negative); Mucus,Urine Rare /hpf; Nitrite,Urine Negative (Negative); PH, Urine 6.5 (5.0-8.0); Protein,Urine 1+ (Negative); Specific Gravity,Urine 1.025 (1.001-1.035); Urobilinogen,Urine <2.0 mg/dL (<2.0); WBC,Urine 1 /hpf (0-5)
[2021-04-26 21:29] LABS: ALT 30 U/L (4-49); AST 25 U/L (17-59); African American GFR (CKD) >90 (>60 ml/min/1.73 sqM); Albumin 3.8 g/dL (3.5-5.0); Alkaline Phosphatase 86 U/L (38-126); Anion Gap 10 mmol/L; Blood Urea Nitrogen 15 mg/dL (9-20); Calcium 9.4 mg/dL (8.4-10.2); Carbon Dioxide 23 mmol/L (22-30); Chloride 106 mmol/L (98-107); Glucose 127 mg/dL (74-99); Lipase 65 U/L (23-300); Non-African American GFR(CKD) >90 (>60 ml/min/1.73 sqM); Potassium 4.1 mmol/L (3.5-5.1); Sodium 139 mmol/L (137-145); Total Bilirubin 0.3 mg/dL (0.2-1.3); Total Protein 7.1 g/dL (6.3-8.2)
--- NOTE | 2021-04-26 21:34 | CT ---
EXAMINATION TYPE: CT abdomen pelvis w con DATE OF EXAM: 04/26/2021 COMPARISON: 07/03/2019 HISTORY: Abdominal pain CT DLP: 1708.3 mGycm Automated exposure control for dose reduction was used. CONTRAST: Performed with IV Contrast, patient injected with 100 mL of Isovue 300. Images obtained from the diaphragm to the floor the pelvis with IV contrast. Lung bases are clear of infiltrate. There is no pleural effusion. Heart size is normal. There are no hilar masses. Liver spleen stomach pancreas appear normal. Bile ducts are not dilated. Gallbladder is somewhat contracted. There is no adrenal mass. Kidneys show satisfactory contrast opacification. There is no hydronephrosi s. Bladder distends smoothly. There is no inguinal hernia. There is minimal prostate calcification. T here is no evidence of a pelvic mass. There is no free fluid in the pelvis. There is no mesenteric edema. There is no ascites or free air. There is no evidence of a bowel obstru ction. Appendix is not seen. There is no sign of thickened appendix. There is lumbar levorotoscoliosis. I see no focal bone destruction. Bony pelvis appears intact. IMPRESSION: No sign of acute abdomen and pelvis. There is clearing of the left renal calculus compared to old exa m.
[2021-04-27 00:39] VITALS: BP 138/72; PULSE 71
== END 2021-04-27 00:39 | disposition home or self-care (01) ==
LOC: EC 19:47
DX: R10.30 Lower abdominal pain, unspecified (principal); F84.0 Autistic disorder; K21.9 Gastro-esophageal reflux disease without esophagitis; E78.5 Hyperlipidemia, unspecified; F41.9 Anxiety disorder, unspecified
CPT/HCPCS: 99284; 36415; 80053; 83605; 83690; 85025; 81001; 74177; Q9967

== ENCOUNTER 2022-04-06 12:57 | Inpatient (IN) | payer MEDICARE, OTHER ==
[2022-04-06] MEDS ORDERED: IBUPROFEN 600 MG TAB PO STA (13:12)
[2022-04-06] MEDS: SODIUM CHLORIDE 0.9% 500 ML 500 ML IV SCH ×3 (14:07→15:45)
--- NOTE | 2022-04-06 14:17 | ED ---
General Adult HPI - General Chief complaint: Upper Respiratory Infection Stated complaint: fever Time Seen by Provider: 04/06/22 12:57 Source: patient, EMS, RN notes reviewed, old records reviewed Mode of arrival: EMS Limitations: altered mental status - History of Present Illness Initial comments: This is a 52-year-old male who presents emergency Department with a past medical history of developmental delay he resides in an adult foster care. Patient was sent in because he is more congested and had a fever of 106 at the facility. They did give him Tylenol there. There was no history given about difficulty breathing or shortness of breath history of any nausea vomiting or diarrhea. Patient unable to give any history. She is normally alert and oriented times one which she currently is an staff states that is not changed - Related Data Home Medications Medication Instructions Recorded Confirmed Sennosides [Senna] 8.6 mg PO BID@0600,1800 03/27/18 04/06/22 Pantoprazole [Protonix] 40 mg PO DAILY@0600 04/12/18 04/06/22 Valproic Acid Oral Soln [Depakene 1,000 mg PO BID@0600,1800 09/20/18 04/06/22 Syrup] Acetaminophen Tab [Tylenol] 325 - 650 mg PO Q4-6H PRN 11/09/18 04/06/22 Clotrimazole/Betamethasone Dip 1 applic TOPICAL DAILY PRN 11/09/18 04/06/22 [Lotrisone Cream] polyethylene glycoL 3350 [Miralax] 17 gm PO Q3D@0600 11/09/18 04/06/22 Brompheniramine/Phenylephrine 20 ml PO Q4H PRN 07/03/19 04/06/22 [Dimetapp Cold-Allergy Elixir] Nystatin 100,000Unit/gm Cream 1 applic TOPICAL BID PRN 07/03/19 04/06/22 [Mycostatin Cream] Pramox-Calamine 1-8% Lotion 1 applic TOPICAL DIRECTED PRN 07/03/19 04/06/22 [Caladryl] carBAMazepine [TEGretol Susp] 300 mg PO BID@0600,1800 07/03/19 04/06/22 ALPRAZolam [Xanax] 1 mg PO TID@0600,1200,1700 04/26/21 04/06/22 Atorvastatin [Lipitor] 20 mg PO HS@1800 04/26/21 04/06/22 [place]-3 Acid Ethyl Esters [Lovaza] 1 gm PO BID@0600,1800 04/26/21 04/06/22 Selsun Blue Shampoo 1 applic TOPICAL DIRECTED PRN 04/26/21 04/06/22 guaiFENesin-DM 100-10MG/5ML 10 ml PO Q4H PRN 04/26/21 04/06/22 [Robitussin DM] Acetaminophen [Tylenol Arthritis] 650 mg PO BID@0600,1800 04/06/22 04/06/22 Cholecalciferol [Vitamin D3 (25 50 mcg PO DAILY@0600 04/06/22 04/06/22 Mcg = 1000 Iu)] Eucerin Cream 1 applic TOPICAL DIRECTED PRN 04/06/22 04/06/22 Hydrocortisone [Anusol-Hc] 1 applic RECTAL HS PRN 04/06/22 04/06/22 Losartan [Cozaar] 50 mg PO DAILY@0600 04/06/22 04/06/22 Solarcaine Cool Aloe 1 applic TOPICAL DIRECTED PRN 04/06/22 04/06/22 risperiDONE [RisperDAL] 0.5 mg PO BID@0600,1800 04/06/22 04/06/22 traZODone HCL [Desyrel] 100 mg PO HS@2100 04/06/22 04/06/22 Allergies Allergy/AdvReac Type Severity Reaction Status Date / Time No Known Allergies Allergy Verified 04/06/22 14:15 Review of Systems ROS Statement: Those systems with pertinent positive or pertinent negative responses have been documented in the HPI. ROS Other: All systems not noted in ROS Statement are negative. Past Medical History Past Medical History: GERD/Reflux, Hyperlipidemia Additional Past Medical History / Comment(s): AUTISM, MENTALLY LIKE A 6 YEAR OLD.,NON-VERBAL (WILL ANSWER YES TO ALL QUESTIONS).,SCOLIOSIS, SCHUFFLES WHEN HE WALKS., RECENT EGD UNDER ANESTHESIA TO REMOVE FOOD THAT WAS STUCK IN HIS THROAT (03/28/18). , RESIDES AT [facility] (PHONE # [phone])., HAVING OCCASIONAL BLOOD IN STOOLS., LEGAL GUARDIAN IS HIS SISTER- LIBIA LEADER # [phone]. History of Any Multi-Drug Resistant Organisms: None Reported Additional Past Surgical History / Comment(s): HEMORROIDECTOMY, EGD WITH ANESTHESIA. Past Anesthesia/Blood Transfusion Reactions: No Reported Reaction Past Psychological History: Anxiety Smoking Status: Never smoker Past Alcohol Use History: None Reported Past Drug Use History: None Reported - Past Family History Mother Family Medical History: Diabetes Mellitus Father Family Medical History: Cancer Additional Family Medical History / Comment(s): BONE AND LIVER General Exam - General Exam Comments Initial Comments: GENERAL: Patient is well-developed and well-nourished. Patient is nontoxic and well- hydrated and is in mild distress. ENT: Neck is soft and supple. No significant lymphadenopathy is noted. Oropharynx is clear. Moist mucous membranes. Neck has full range of motion without eliciting any pain. EYES: The sclera were anicteric and conjunctiva were pink and moist. Extraocular movements were intact and pupils were equal round and reactive to light. Eyelids were unremarkable. PULMONARY: Unlabored respirations. Good breath sounds bilaterally. No audible rales rhonchi or wheezing was noted. CARDIOVASCULAR: There is a regular rate and rhythm without any murmurs gallops or rubs. ABDOMEN: Soft and nontender with normal bowel sounds. SKIN: Skin is clear with no lesions or rashes and otherwise unremarkable. NEUROLOGIC: Patient is alert and oriented 1. Cranial nerves II through XII are grossly intact. Motor and sensory are also intact. Normal speech, volume and content. Symmetrical smile. MUSCULOSKELETAL: Normal extremities with adequate strength and full range of motion. LYMPHATICS: No significant lymphadenopathy is noted PSYCHIATRIC: Normal psychiatric evaluation. Limitations: no limitations, altered mental status Course Vital Signs 04/06/22 04/06/22 13:02 18:18 Temperature 100.7 F H 98.9 F Pulse Rate 98 82 Respiratory 18 18 Rate Blood Pressure 120/71 135/85 O2 Sat by Pulse 92 L 94 L Oximetry Medical Decision Making - Medical Decision Making Chest x-ray shows no acute abnormality Patient's EKG shows sinus rhythm at 79 bpm GA interval 224 QRS is 86 QT interval 373 QTC is 408. Patient's EKG shows no ST segment elevation or depression. Patient started the oxygen into the upper 80s so I repeated her chest x-ray showed no acute abnormality. Patient was able to be at 9495% on 2 L but normally wears no oxygen. Since patient is unable to make it with this I thought it would be safe to keep the patient and observe him overnight. I spoke with some physicians he agreed to admit the patient admitted the patient wrote admitting orders. - Lab Data Result diagrams: 04/06/22 13:59 04/06/22 13:59 Lab Results 04/06/22 04/06/22 04/06/22 Range/Units 13:59 13:59 13:59 WBC 10.8 H (3.8-10.6) k/uL RBC 4.44 (4.30-5.90) m/uL Hgb 14.0 (13.0-17.5) gm/dL Hct 41.0 (39.0-53.0) % MCV 92.5 (80.0-100.0) fL MCH 31.5 (25.0-35.0) pg MCHC 34.1 (31.0-37.0) g/dL RDW 13.0 (11.5-15.5) % Plt Count 173 (150-450) k/uL MPV 8.1 Neutrophils % 68 % Lymphocytes % 13 % Monocytes % 14 % Eosinophils % 0 % Basophils % 2 % Neutrophils # 7.3 (1.3-7.7) k/uL Lymphocytes # 1.4 (1.0-4.8) k/uL Monocytes # 1.5 H (0-1.0) k/uL Eosinophils # 0.0 (0-0.7) k/uL Basophils # 0.2 (0-0.2) k/uL PT 10.9 (9.0-12.0) sec INR 1.0 (<1.2) APTT 27.0 (22.0-30.0) sec Sodium (137-145) mmol/L Potassium (3.5-5.1) mmol/L Chloride (98-107) mmol/L Carbon Dioxide (22-30) mmol/L Anion Gap mmol/L BUN (9-20) mg/dL Creatinine (0.66-1.25) mg/dL Est GFR (CKD-EPI)AfAm (>60 ml/min/1.73 sqM) Est GFR (CKD-EPI)NonAf (>60 ml/min/1.73 sqM) Glucose (74-99) mg/dL Lactic Ac Sepsis Rflx Plasma Lactic Acid Gilberto (0.7-2.0) mmol/L Calcium (8.4-10.2) mg/dL Total Bilirubin (0.2-1.3) mg/dL AST (17-59) U/L ALT (4-49) U/L Alkaline Phosphatase (38-126) U/L Total Protein (6.3-8.2) g/dL Albumin (3.5-5.0) g/dL Urine Color Light Yellow Urine Appearance Clear (Clear) Urine pH 5.5 (5.0-8.0) Ur Specific [place] 1.007 (1.001-1.035) Urine Protein Negative (Negative) Urine Glucose (UA) Negative (Negative) Urine Ketones Negative (Negative) Urine Blood Negative (Negative) Urine Nitrite Negative (Negative) Urine Bilirubin Negative (Negative) Urine Urobilinogen <2.0 (<2.0) mg/dL Ur Leukocyte Esterase Negative (Negative) Coronavirus (PCR) (Not Detectd) 04/06/22 04/06/22 04/06/22 Range/Units 13:59 13:59 13:59 WBC (3.8-10.6) k/uL RBC (4.30-5.90) m/uL Hgb (13.0-17.5) gm/dL Hct (39.0-53.0) % MCV (80.0-100.0) fL MCH (25.0-35.0) pg MCHC (31.0-37.0) g/dL RDW (11.5-15.5) % Plt Count (150-450) k/uL MPV Neutrophils % % Lymphocytes % % Monocytes % % Eosinophils % % Basophils % % Neutrophils # (1.3-7.7) k/uL Lymphocytes # (1.0-4.8) k/uL Monocytes # (0-1.0) k/uL Eosinophils # (0-0.7) k/uL Basophils # (0-0.2) k/uL PT (9.0-12.0) sec INR (<1.2) APTT (22.0-30.0) sec Sodium 134 L (137-145) mmol/L Potassium 4.3 (3.5-5.1) mmol/L Chloride 98 (98-107) mmol/L Carbon Dioxide 22 (22-30) mmol/L Anion Gap 14 mmol/L BUN 12 (9-20) mg/dL Creatinine 0.72 (0.66-1.25) mg/dL Est GFR (CKD-EPI)AfAm >90 (>60 ml/min/1.73 sqM) Est GFR (CKD-EPI)NonAf >90 (>60 ml/min/1.73 sqM) Glucose 132 H (74-99) mg/dL Lactic Ac Sepsis Rflx Plasma Lactic Acid Gilberto 2.1 H* (0.7-2.0) mmol/L Calcium 8.6 (8.4-10.2) mg/dL Total Bilirubin 0.2 (0.2-1.3) mg/dL AST 76 H (17-59) U/L ALT 87 H (4-49) U/L Alkaline Phosphatase 78 (38-126) U/L Total Protein 7.4 (6.3-8.2) g/dL Albumin 4.2 (3.5-5.0) g/dL Urine Color Urine Appearance (Clear) Urine pH (5.0-8.0) Ur Specific [place] (1.001-1.035) Urine Protein (Negative) Urine Glucose (UA) (Negative) Urine Ketones (Negative) Urine Blood (Negative) Urine Nitrite (Negative) Urine Bilirubin (Negative) Urine Urobilinogen (<2.0) mg/dL Ur Leukocyte Esterase (Negative) Coronavirus (PCR) Detected A (Not Detectd) 04/06/22 Range/Units 14:45 WBC (3.8-10.6) k/uL RBC (4.30-5.90) m/uL Hgb (13.0-17.5) gm/dL Hct (39.0-53.0) % MCV (80.0-100.0) fL MCH (25.0-35.0) pg MCHC (31.0-37.0) g/dL RDW (11.5-15.5) % Plt Count (150-450) k/uL MPV Neutrophils % % Lymphocytes % % Monocytes % % Eosinophils % % Basophils % % Neutrophils # (1.3-7.7) k/uL Lymphocytes # (1.0-4.8) k/uL Monocytes # (0-1.0) k/uL Eosinophils # (0-0.7) k/uL Basophils # (0-0.2) k/uL PT (9.0-12.0) sec INR (<1.2) APTT (22.0-30.0) sec Sodium (137-145) mmol/L Potassium (3.5-5.1) mmol/L Chloride (98-107) mmol/L Carbon Dioxide (22-30) mmol/L Anion Gap mmol/L BUN (9-20) mg/dL Creatinine (0.66-1.25) mg/dL Est GFR (CKD-EPI)AfAm (>60 ml/min/1.73 sqM) Est GFR (CKD-EPI)NonAf (>60 ml/min/1.73 sqM) Glucose (74-99) mg/dL Lactic Ac Sepsis Rflx Y Plasma Lactic Acid Gilberto (0.7-2.0) mmol/L Calcium (8.4-10.2) mg/dL Total Bilirubin (0.2-1.3) mg/dL AST (17-59) U/L ALT (4-49) U/L Alkaline Phosphatase (38-126) U/L Total Protein (6.3-8.2) g/dL Albumin (3.5-5.0) g/dL Urine Color Urine Appearance (Clear) Urine pH (5.0-8.0) Ur Specific [place] (1.001-1.035) Urine Protein (Negative) Urine Glucose (UA) (Negative) Urine Ketones (Negative) Urine Blood (Negative) Urine Nitrite (Negative) Urine Bilirubin (Negative) Urine Urobilinogen (<2.0) mg/dL Ur Leukocyte Esterase (Negative) Coronavirus (PCR) (Not Detectd) Disposition Clinical Impression: COVID-19 Disposition: HOME SELF-CARE Instructions (If sedation given, give patient instructions): Coronavirus Disease 2019 (COVID-19) Additional Instructions: Patient she returns as any difficulty breathing or shortness of breath. Patient should be taking Tylenol Motrin when necessary for fever. Is patient prescribed a controlled substance at d/c from ED?: No Referrals: Derek Sousa MD [Primary Care Provider] - 1-2 days Time of Disposition: 16:19
[2022-04-06 14:20] LABS: Basophils # (A) 0.2 k/uL (0-0.2); Basophils % (A) 2 %; Eosinophils % (A) 0 %; Lymphocytes # (A) 1.4 k/uL (1.0-4.8); Lymphocytes % (A) 13 %; MCH 31.5 pg (25.0-35.0); MCHC 34.1 g/dL (31.0-37.0); MCV 92.5 fL (80.0-100.0); Mean Platelet Volume 8.1; Monocytes # (A) 1.5 k/uL (0-1.0); Monocytes % (A) 14 %; Neutrophils # (A) 7.3 k/uL (1.3-7.7); Neutrophils % (A) 68 %; Platelet Count 173 k/uL (150-450); RBC 4.44 m/uL (4.30-5.90); WBC 10.8 k/uL (3.8-10.6)
[2022-04-06 14:31] LABS: Prothrombin Time 10.9 sec (9.0-12.0)
[2022-04-06 14:32] LABS: ALT 87 U/L (4-49); AST 76 U/L (17-59); African American GFR (CKD) >90 (>60 ml/min/1.73 sqM); Albumin 4.2 g/dL (3.5-5.0); Alkaline Phosphatase 78 U/L (38-126); Anion Gap 14 mmol/L; Blood Urea Nitrogen 12 mg/dL (9-20); Calcium 8.6 mg/dL (8.4-10.2); Carbon Dioxide 22 mmol/L (22-30); Chloride 98 mmol/L (98-107); Glucose 132 mg/dL (74-99); Non-African American GFR(CKD) >90 (>60 ml/min/1.73 sqM); Potassium 4.3 mmol/L (3.5-5.1); Sodium 134 mmol/L (137-145); Total Bilirubin 0.2 mg/dL (0.2-1.3); Total Protein 7.4 g/dL (6.3-8.2)
--- NOTE | 2022-04-06 14:43 | XR ---
EXAMINATION TYPE: XR chest 2V DATE OF EXAM: 04/06/2022 2:18 PM COMPARISON: Chest radiographs from 09/19/2018. TECHNIQUE: XR chest 2V Frontal and lateral views of the chest. CLINICAL INDICATION:Male, 52 years old with history of Fever; FINDINGS: Lungs/Pleura: There is no evidence of pleural effusion, focal consolidation, or pneumothorax. Pulmonary vascularity: Unremarkable. Heart/mediastinum: Cardiomediastinal silhouette is unremarkable. Musculoskeletal: No acute osseous pathology. IMPRESSION: No acute cardiopulmonary disease/process.
[2022-04-06] MEDS ORDERED: ACETAMINOPHEN TAB 500 MG TAB PO STA (16:20)
[2022-04-06 17:58] LABS: Appearance,Urine Clear (Clear); Bilirubin,Urine Negative (Negative); Blood,Urine Negative (Negative); Color,Urine Light Yellow; Glucose,Urine (UA) Negative (Negative); Ketones,Urine Negative (Negative); Leukocyte Esterase,Urine Negative (Negative); Nitrite,Urine Negative (Negative); PH, Urine 5.5 (5.0-8.0); Protein,Urine Negative (Negative); Specific Gravity,Urine 1.007 (1.001-1.035); Urobilinogen,Urine <2.0 mg/dL (<2.0)
--- NOTE | 2022-04-06 19:38 | XR ---
EXAMINATION TYPE: XR chest 1V portable DATE OF EXAM: 04/06/2022 COMPARISON: Today HISTORY: Hypoxemia TECHNIQUE: Single view FINDINGS: Heart is normal. Lungs are clear of infiltrate. No heart failure. There are no hilar masses . Costophrenic angles are clear. IMPRESSION: No active cardiopulmonary disease. Normal heart. No change.
[2022-04-06] MEDS ORDERED: dexAMETHasone 2 MG TAB PO STA (20:34)
[2022-04-06] MEDS ORDERED: ACETAMINOPHEN TAB 325 MG TAB PO PRN (23:37)
[2022-04-06] MEDS ORDERED: ALBUTEROL HFA INHALER INHALATION PRN (23:37)
--- NOTE | 2022-04-06 23:58 | P.HPIM ---
History of Present Illness H&P Date: 04/06/22 Chief Complaint: fever 52 year old male with developmental delay patient is a resident of adult foster care, he was sent in here because of fever, no report of SOB, or chest pain , no report of any changes in his mental status. patient has developmental delays , and unable to provide any meaningful history , he answers with "yup" to everything patient noted to have fever in the ED, and found to be hypoxemic despite normal CXR blood work overall unremarkable COVID positive Review of Systems ROS unobtainable: due to mental status Past Medical History Past Medical History: GERD/Reflux, Hyperlipidemia Additional Past Medical History / Comment(s): AUTISM, MENTALLY LIKE A 6 YEAR OLD.,NON-VERBAL (WILL ANSWER YES TO ALL QUESTIONS).,SCOLIOSIS, SCHUFFLES WHEN HE WALKS., RESIDES AT [facility] (PHONE # [phone])., LEGAL GUARDIAN IS HIS SISTER- LIBIA LEADER # [phone]. History of Any Multi-Drug Resistant Organisms: None Reported Additional Past Surgical History / Comment(s): HEMORROIDECTOMY, EGD WITH ANESTHESIA. Past Anesthesia/Blood Transfusion Reactions: No Reported Reaction Past Psychological History: Anxiety Smoking Status: Never smoker Past Alcohol Use History: None Reported Past Drug Use History: None Reported - Past Family History Mother Family Medical History: Diabetes Mellitus Father Family Medical History: Cancer Additional Family Medical History / Comment(s): BONE AND LIVER Medications and Allergies Home Medications Medication Instructions Recorded Confirmed Type Sennosides [Senna] 8.6 mg PO BID@0600,1800 03/27/18 04/06/22 History Pantoprazole [Protonix] 40 mg PO DAILY@0600 04/12/18 04/06/22 History Valproic Acid Oral Soln [Depakene 1,000 mg PO BID@0600,1800 09/20/18 04/06/22 History Syrup] Acetaminophen Tab [Tylenol] 325 - 650 mg PO Q4-6H PRN 11/09/18 04/06/22 History Clotrimazole/Betamethasone Dip 1 applic TOPICAL DAILY PRN 11/09/18 04/06/22 History [Lotrisone Cream] polyethylene glycoL 3350 [Miralax] 17 gm PO Q3D@0600 11/09/18 04/06/22 History Brompheniramine/Phenylephrine 20 ml PO Q4H PRN 07/03/19 04/06/22 History [Dimetapp Cold-Allergy Elixir] Nystatin 100,000Unit/gm Cream 1 applic TOPICAL BID PRN 07/03/19 04/06/22 History [Mycostatin Cream] Pramox-Calamine 1-8% Lotion 1 applic TOPICAL DIRECTED PRN 07/03/19 04/06/22 History [Caladryl] carBAMazepine [TEGretol Susp] 300 mg PO BID@0600,1800 07/03/19 04/06/22 History ALPRAZolam [Xanax] 1 mg PO TID@0600,1200,1700 04/26/21 04/06/22 History Atorvastatin [Lipitor] 20 mg PO HS@1800 04/26/21 04/06/22 History [place]-3 Acid Ethyl Esters [Lovaza] 1 gm PO BID@0600,1800 04/26/21 04/06/22 History Selsun Blue Shampoo 1 applic TOPICAL DIRECTED PRN 04/26/21 04/06/22 History guaiFENesin-DM 100-10MG/5ML 10 ml PO Q4H PRN 04/26/21 04/06/22 History [Robitussin DM] Acetaminophen [Tylenol Arthritis] 650 mg PO BID@0600,1800 04/06/22 04/06/22 History Cholecalciferol [Vitamin D3 (25 50 mcg PO DAILY@0600 04/06/22 04/06/22 History Mcg = 1000 Iu)] Eucerin Cream 1 applic TOPICAL DIRECTED PRN 04/06/22 04/06/22 History Hydrocortisone [Anusol-Hc] 1 applic RECTAL HS PRN 04/06/22 04/06/22 History Losartan [Cozaar] 50 mg PO DAILY@0600 04/06/22 04/06/22 History Solarcaine Cool Aloe 1 applic TOPICAL DIRECTED PRN 04/06/22 04/06/22 History risperiDONE [RisperDAL] 0.5 mg PO BID@0600,1800 04/06/22 04/06/22 History traZODone HCL [Desyrel] 100 mg PO HS@2100 04/06/22 04/06/22 History Allergies Allergy/AdvReac Type Severity Reaction Status Date / Time No Known Allergies Allergy Verified 04/06/22 14:15 Physical Exam Vitals: Vital Signs Temp Pulse Resp BP Pulse Ox 04/06/22 18:18 98.9 F 82 18 135/85 94 L 04/06/22 13:02 100.7 F H 98 18 120/71 92 L Intake and Output 04/06/22 04/06/22 04/07/22 14:59 22:59 06:59 Other: Weight 97.522 kg Constitutional: No acute distress, conversant, pleasant, developmental delays Eyes: Anicteric sclerae, moist conjunctiva, Pupils equal round reactive to light ENMT: NC/AT Oropharynx clear, no erythema, or exudates Neck: Supple, no masses, or JVD No carotid bruits No thyromegaly Lungs: noisy breath sounds with upper airway crackles, otherwise good breath sounds no wheezing Clear to percussion Normal respiratory effort, no accessory muscle use Cardiovascular: Heart regular in rate and rhythm, No murmurs, gallops, or rubs No peripheral edema Abdominal: Soft Nontender, no guarding, rebound or rigidity Abdomen moving with respiration Normoactive bowel sounds No hepatomegaly, No splenomegaly No palpable mass No abdominal wall hernia noted Skin: Normal temperature, tone, texture, turgor No induration No subcutaneous nodules No rash, lesions No ulcers Extremities: No digital cyanosis No clubbing Pedal pulses intact and symmetrical Radial pulses intact and symmetrical No calf tenderness Psychiatric: Alert and oriented to person, place developmental delay Neuro moving all extremities , unable to perform proper neuro exam , patient can not understand complex orders Lymphatics: no palpable cervical or supraclavicular , or inguinal lymph nodes Results CBC & Chem 7: 04/06/22 13:59 04/06/22 13:59 Labs: Abnormal Lab Results - Last 24 Hours (Table) 04/06/22 04/06/22 04/06/22 Range/Units 13:59 13:59 13:59 WBC 10.8 H (3.8-10.6) k/uL Monocytes # 1.5 H (0-1.0) k/uL Sodium 134 L (137-145) mmol/L Glucose 132 H (74-99) mg/dL Plasma Lactic Acid Gilberto 2.1 H* (0.7-2.0) mmol/L AST 76 H (17-59) U/L ALT 87 H (4-49) U/L Coronavirus (PCR) (Not Detectd) 04/06/22 Range/Units 13:59 WBC (3.8-10.6) k/uL Monocytes # (0-1.0) k/uL Sodium (137-145) mmol/L Glucose (74-99) mg/dL Plasma Lactic Acid Gilberto (0.7-2.0) mmol/L AST (17-59) U/L ALT (4-49) U/L Coronavirus (PCR) Detected A (Not Detectd) Assessment and Plan Assessment: acute hypoxic respiratory failure COVID infection lactic acidosis , resolved supportive care initiated on steroids supplemental oxygen CXR no acute pathology droplet precautions lovenox for DVT PPX check labs for prognostic evaluation , d dimer, trop, crp. procalcitonin , LDH , fibrinogen EKG NSR no acute STchanges monitor vital signs gentle IVF hydration with normal saline fall precautions chronic conditions developmental delays resume home medications mood stabilizers DVT PPX lovenox sc full code
[2022-04-07] MEDS ORDERED: ONDANSETRON 4 MG/2 ML VIAL IVP PRN
[2022-04-07] MEDS ORDERED: IBUPROFEN 400 MG TAB PO PRN
[2022-04-07] MEDS ORDERED: MELATONIN 3 MG TABLET PO PRN
[2022-04-07] MEDS ORDERED: NALOXONE 0.4 MG/ML 1 ML VIAL IV PRN
[2022-04-07] MEDS ORDERED: DOCUSATE 100 MG CAP PO PRN
[2022-04-07 00:38] LABS: C Reactive Protein 6.2 mg/dL (<1.0); Magnesium 1.9 mg/dL (1.6-2.3)
[2022-04-07] MEDS: VALPROIC ACID ORAL SOLN 250 MG/5 ML CUP PO SCH ×2 (06:20→22:56)
[2022-04-07] MEDS: SODIUM CHLORIDE 0.9% 1,000 ML IV SCH (09:00)
[2022-04-07] MEDS: ALPRAZolam 1 MG TAB PO SCH ×3 (09:01→22:56)
[2022-04-07] MEDS: LOSARTAN 50 MG TAB PO SCH (09:01)
[2022-04-07] MEDS: PANTOPRAZOLE 40 MG TABLET PO SCH (09:01)
[2022-04-07] MEDS: dexAMETHasone 2 MG TAB PO SCH (09:01)
[2022-04-07] MEDS: ENOXAPARIN 40 MG/0.4 ML SYRINGE SQ SCH (09:01)
[2022-04-07] MEDS: risperiDONE 0.5 MG TAB PO SCH ×2 (09:34→22:57)
--- NOTE | 2022-04-07 21:33 | P.CNPUL ---
History of Present Illness Consult date: 04/07/22 Reason for consult: other (Febrile illness) Chief complaint: Fevers History of present illness: This is a 52-year-old male patient with a history of developmental delay. No history is able to be obtained from him. He resides in adult foster care. He is brought in here because of fevers. He was found to be COVID-19 positive. Chest x-ray reveals no acute pulmonary process. Blood cultures reveal no growth. White count 10.8. Hemoglobin 14.0. Platelets 173. Sodium 134. Potassium 4.3. BUN 12. Creatinine 0.72. AST 76. ALT 87. LDH 591. Kaiser virus by PCR positive. He's been initiated on Lovenox, Decadron, bronchodilators. He is currently seen in consultation in the emergency room. He sitting up in the bed. He responds yes to every question. Currently maintaining O2 saturations in the 90s on 2 L/m per nasal cannula. Normal sinus rhythm. 0.9 normal saline at KVO. Crackles noted in the bilateral bases. Review of Systems ROS unobtainable: due to mental status Past Medical History Past Medical History: GERD/Reflux, Hyperlipidemia Additional Past Medical History / Comment(s): AUTISM, MENTALLY LIKE A 6 YEAR OLD.,NON-VERBAL (WILL ANSWER YES TO ALL QUESTIONS).,SCOLIOSIS, SCHUFFLES WHEN HE WALKS., RESIDES AT [facility] (PHONE # [phone])., LEGAL GUARDIAN IS HIS SISTER- LIBIA LEADER # [phone]. History of Any Multi-Drug Resistant Organisms: None Reported Additional Past Surgical History / Comment(s): HEMORROIDECTOMY, EGD WITH ANESTHESIA. Past Anesthesia/Blood Transfusion Reactions: No Reported Reaction Past Psychological History: Anxiety Smoking Status: Never smoker Past Alcohol Use History: None Reported Past Drug Use History: None Reported - Past Family History Mother Family Medical History: Diabetes Mellitus Father Family Medical History: Cancer Additional Family Medical History / Comment(s): BONE AND LIVER Medications and Allergies Home Medications Medication Instructions Recorded Confirmed Type Sennosides [Senna] 8.6 mg PO BID@0600,1800 03/27/18 04/06/22 History Pantoprazole [Protonix] 40 mg PO DAILY@0600 04/12/18 04/06/22 History Valproic Acid Oral Soln [Depakene 1,000 mg PO BID@0600,1800 09/20/18 04/06/22 History Syrup] Acetaminophen Tab [Tylenol] 325 - 650 mg PO Q4-6H PRN 11/09/18 04/06/22 History Clotrimazole/Betamethasone Dip 1 applic TOPICAL DAILY PRN 11/09/18 04/06/22 History [Lotrisone Cream] polyethylene glycoL 3350 [Miralax] 17 gm PO Q3D@0600 11/09/18 04/06/22 History Brompheniramine/Phenylephrine 20 ml PO Q4H PRN 07/03/19 04/06/22 History [Dimetapp Cold-Allergy Elixir] Nystatin 100,000Unit/gm Cream 1 applic TOPICAL BID PRN 07/03/19 04/06/22 History [Mycostatin Cream] Pramox-Calamine 1-8% Lotion 1 applic TOPICAL DIRECTED PRN 07/03/19 04/06/22 History [Caladryl] carBAMazepine [TEGretol Susp] 300 mg PO BID@0600,1800 07/03/19 04/06/22 History ALPRAZolam [Xanax] 1 mg PO TID@0600,1200,1700 04/26/21 04/06/22 History Atorvastatin [Lipitor] 20 mg PO HS@1800 04/26/21 04/06/22 History Loretto-3 Acid Ethyl Esters [Lovaza] 1 gm PO BID@0600,1800 04/26/21 04/06/22 History Selsun Blue Shampoo 1 applic TOPICAL DIRECTED PRN 04/26/21 04/06/22 History guaiFENesin-DM 100-10MG/5ML 10 ml PO Q4H PRN 04/26/21 04/06/22 History [Robitussin DM] Acetaminophen [Tylenol Arthritis] 650 mg PO BID@0600,1800 04/06/22 04/06/22 History Cholecalciferol [Vitamin D3 (25 50 mcg PO DAILY@0600 04/06/22 04/06/22 History Mcg = 1000 Iu)] Eucerin Cream 1 applic TOPICAL DIRECTED PRN 04/06/22 04/06/22 History Hydrocortisone [Anusol-Hc] 1 applic RECTAL HS PRN 04/06/22 04/06/22 History Losartan [Cozaar] 50 mg PO DAILY@0600 04/06/22 04/06/22 History Solarcaine Cool Aloe 1 applic TOPICAL DIRECTED PRN 04/06/22 04/06/22 History risperiDONE [RisperDAL] 0.5 mg PO BID@0600,1800 04/06/22 04/06/22 History traZODone HCL [Desyrel] 100 mg PO HS@2100 04/06/22 04/06/22 History Allergies Allergy/AdvReac Type Severity Reaction Status Date / Time No Known Allergies Allergy Verified 04/06/22 14:15 Physical Exam Vitals: Vital Signs Temp Pulse Pulse Resp BP BP Pulse Ox 04/07/22 19:20 98.5 F 80 19 126/88 97 04/07/22 09:02 100 16 94 L 04/07/22 06:13 98.2 F 84 18 118/74 92 L 04/07/22 01:59 100.1 F H 89 18 151/89 92 L 04/06/22 23:54 56 L 18 152/89 96 GENERAL EXAM: Alert, developmentally delayed 52-year-old male, poor historian, on 2 L nasal cannula, comfortable in no apparent distress. HEAD: Normocephalic. EYES: Normal reaction of pupils, equal size. NOSE: Clear with pink turbinates. THROAT: No erythema or exudates. NECK: No masses, no JVD. CHEST: No chest wall deformity. LUNGS: Equal air entry with crackles. CVS: S1 and S2 normal with no audible murmur, regular rhythm. ABDOMEN: No hepatosplenomegaly, normal bowel sounds, no guarding or rigidity. SPINE: No scoliosis or deformity SKIN: No rashes CENTRAL NERVOUS SYSTEM: No focal deficits, tone is normal in all 4 extremities. EXTREMITIES: There is no peripheral edema. No clubbing, no cyanosis. Peripheral pulses are intact. Results - Laboratory Findings CBC and BMP: 04/06/22 13:59 04/06/22 13:59 PT/INR, D-dimer PT 10.9 sec (9.0-12.0) 04/06/22 13:59 INR 1.0 (<1.2) 04/06/22 13:59 Abnormal lab findings: Abnormal Labs 04/06/22 04/06/22 04/06/22 13:59 13:59 13:59 WBC 10.8 H Monocytes # 1.5 H Sodium 134 L Glucose 132 H Plasma Lactic Acid Gilberto 2.1 H* AST 76 H ALT 87 H C-Reactive Protein Coronavirus (PCR) 04/06/22 04/06/22 13:59 23:45 WBC Monocytes # Sodium Glucose Plasma Lactic Acid Gilberto AST ALT C-Reactive Protein 6.2 H Coronavirus (PCR) Detected A - Diagnostic Findings Chest x-ray: image reviewed Assessment and Plan Assessment: Febrile illness secondary to COVID-19 infection without COVID-19 pneumonia. Chest x-ray shows no acute pulmonary process Developmental delay Resides in adult foster care History of gastroesophageal reflux disease History of hyperlipidemia History of autism History of scoliosis History of anxiety Nonsmoker Plan: The patient was seen and evaluated Chest x-ray, labs and medications revealed Titrate the FiO2 as tolerated Continue bronchodilators Continue Decadron and Lovenox We'll continue to follow make further recommendations based on his clinical status I have personally seen and examined the patient, performed the documentation and the assessment and plan as written. Number of minutes spent on the visit: 20.
--- NOTE | 2022-04-07 22:26 | P.PN ---
Progress Note - Text Progress Note Date: 04/07/22 This is a 52-year-old patient who follows with Dr. Sousa. Chronic stable medical conditions include GERD, hyperlipidemia, autism. mental age of approximately 6 years . patient's sister - the power of claim attorney. Sometimes goes without the BMs to 3 days. Normally walks around with a shuffled gait. Able to feed himself. Patient was sent in from the [facility] home with a fever of 106, congested cough,. No nausea vomiting diarrhea. Patient is admitted by my colleague from [facility]. 4 COVID 19 infection. Placed on dexamethasone and oxygen. April 07: I assumed care of the patient today. Laying in bed. Congested cough. Only thing he'll say " yup" noted,. Doesn't appear to be in distress. Active Medications Acetaminophen (Acetaminophen Tab 325 Mg Tab) 650 mg PO Q4HR PRN PRN Reason: Fever>101 Albuterol Sulfate (Albuterol Hfa Inhaler) 2 puff INHALATION RT-Q6H PRN PRN Reason: Shortness Of Breath Or Wheezing Last Admin: 04/07/22 07:18 Dose: 2 puff Alprazolam (Alprazolam 1 Mg Tab) 1 mg PO TID [facility] Last Admin: 04/07/22 21:25 Dose: Not Given Atorvastatin Calcium (Atorvastatin 20 Mg Tab) 20 mg PO HS [facility] Carbamazepine (Carbamazepine Chew 100 Mg Chew) 300 mg PO BID@0600,1800 [facility] Last Admin: 04/07/22 06:30 Dose: 300 mg Dexamethasone (Dexamethasone 2 Mg Tab) 6 mg PO DAILY [facility] Last Admin: 04/07/22 09:01 Dose: 6 mg Docusate Sodium (Docusate 100 Mg Cap) 100 mg PO BID PRN PRN Reason: Constipation Enoxaparin Sodium (Enoxaparin 40 Mg/0.4 Ml Syringe) 40 mg SQ Q24HR [facility] Last Admin: 04/07/22 09:01 Dose: 40 mg Sodium Chloride (Saline 0.9%) 1,000 mls @ 75 mls/hr IV .[id number] [facility] Last Admin: 04/07/22 09:00 Dose: 75 mls/hr Ibuprofen (Ibuprofen 400 Mg Tab) 400 mg PO Q6HR PRN PRN Reason: Mild Pain or Fever > 100.5 Losartan Potassium (Losartan 50 Mg Tab) 50 mg PO DAILY [facility] Last Admin: 04/07/22 09:01 Dose: 50 mg Melatonin (Melatonin 3 Mg Tablet) 3 mg PO HS PRN PRN Reason: Insomnia Naloxone HCl (Naloxone 0.4 Mg/Ml 1 Ml Vial) 0.2 mg IV Q2M PRN PRN Reason: Opioid Reversal Ondansetron HCl (Ondansetron 4 Mg/2 Ml Vial) 4 mg IVP Q8HR PRN PRN Reason: Nausea And Vomiting Pantoprazole Sodium (Pantoprazole 40 Mg Tablet) 40 mg PO AC-BRKFST [facility] Last Admin: 04/07/22 09:01 Dose: 40 mg Risperidone (Risperidone 0.5 Mg Tab) 0.5 mg PO BID [facility] Last Admin: 04/07/22 09:34 Dose: 0.5 mg Trazodone HCl (Trazodone Hcl 100 Mg Tab) 100 mg PO HS@2100 [facility] Valproic Acid (Valproic Acid Oral Soln 250 Mg/5 Ml Cup) 1,000 mg PO BID@0600,1800 [facility] Last Admin: 04/07/22 06:20 Dose: 1,000 mg Physical examination: VITAL SIGNS: T-max 100.7, 100, 16, 108/74, 92% room air GENERAL: Laying in bed, awake congested cough EYES: Pupils equal. Conjunctiva normal. HEENT: External appearance of nose and ears normal, oral cavity grossly normal. NECK: JVD not raised; masses not palpable. HEART: First and second heart sounds are normal; no edemclear to auscultation. a. LUNGS: Respiratory rate increased , coarse breath sounds ABDOMEN: Soft, nontender, liver spleen not palpable, no masses palpable. PSYCH: Doesn't answer questions but says yes and does follow simple commands. NEUROLOGICAL: Cranial nerves grossly intact; no facial asymmetry, Moving all 4 limbs INVESTIGATIONS, reviewed in the clinical context: White count 10.8 hemoglobin 14 platelets 173 potassium 4.3 creatinine 0.7 to lactic acid 2.1 AST 76 ALT 87 UA: Negative COVID 19 PCR: Detected Influenza type A/type B Chest x-ray reported negative Assessment and plan: -Acute COVID 19 pneumonitis, causing hypoxia Dexamethasone -Acute hypoxic respiratory failure secondary to COVID 19 On 2 L nasal cannula -Chronic constipation Laxative -Autism with a mental age of 6 -Anxiety not otherwise specified, with mood disorder Continue home medications including carbamazepine, Risperdal -GERD Protonix -Hyperlipidemia Lipitor, -Legal guardian is his sister Suzan leader [phone] Continue dexamethasone. Oxygen supplementation.
[2022-04-07] MEDS: ATORVASTATIN 20 MG TAB PO SCH (22:57)
[2022-04-07] MEDS: traZODone HCL 100 MG TAB PO SCH (22:57)
[2022-04-08] MEDS: SODIUM CHLORIDE 0.9% 1,000 ML IV SCH ×3 (01:27→20:42)
[2022-04-08] MEDS: PANTOPRAZOLE 40 MG TABLET PO SCH (05:52)
[2022-04-08] MEDS: VALPROIC ACID ORAL SOLN 250 MG/5 ML CUP PO SCH ×2 (05:53→17:06)
[2022-04-08] MEDS ORDERED: NON FORMULARY DRUG (Acetaminophen [Tylenol Arthritis] 650 MG Tablet) PO SCH (06:00)
[2022-04-08] MEDS: ALPRAZolam 1 MG TAB PO SCH ×3 (08:17→20:42)
[2022-04-08] MEDS: dexAMETHasone 2 MG TAB PO SCH (08:17)
[2022-04-08] MEDS: LOSARTAN 50 MG TAB PO SCH (08:17)
[2022-04-08] MEDS: risperiDONE 0.5 MG TAB PO SCH ×2 (08:18→21:45)
[2022-04-08] MEDS: ENOXAPARIN 40 MG/0.4 ML SYRINGE SQ SCH (08:18)
[2022-04-08 08:26] LABS: ALT 58 U/L (4-49); AST 58 U/L (17-59); African American GFR (CKD) >90 (>60 ml/min/1.73 sqM); Albumin 3.7 g/dL (3.5-5.0); Albumin/Globulin Ratio 1.2; Alkaline Phosphatase 66 U/L (38-126); Anion Gap 12 mmol/L; Blood Urea Nitrogen 11 mg/dL (9-20); Carbon Dioxide 27 mmol/L (22-30); Chloride 102 mmol/L (98-107); Glucose 106 mg/dL (74-99); Magnesium 2.1 mg/dL (1.6-2.3); Non-African American GFR(CKD) >90 (>60 ml/min/1.73 sqM); Potassium 3.9 mmol/L (3.5-5.1); Sodium 141 mmol/L (137-145); Total Bilirubin 0.3 mg/dL (0.2-1.3); Total Protein 6.7 g/dL (6.3-8.2)
[2022-04-08 08:40] LABS: C Reactive Protein 6.5 mg/dL (<1.0)
[2022-04-08 10:30] LABS: Basophils # (A) 0.03 X 10*3/uL (0.00-0.10); Basophils % (A) 0.4 %; Eosinophils # (A) 0.12 X 10*3/uL (0.04-0.35); Eosinophils % (A) 1.5 %; HGB 12.8 g/dL (13.0-17.0); Immature Grans, Automated 0.4 %; Lymphocytes # (A) 3.01 X 10*3/uL (0.90-5.00); Lymphocytes % (A) 38.6 %; MCH 31.1 pg (27.0-32.0); MCHC 33.7 g/dL (32.0-37.0); MCV 92.5 fL (80.0-97.0); Mean Platelet Volume 10.9 fL (9.5-12.2); Monocytes # (A) 0.83 X 10*3/uL (0.20-1.00); Monocytes % (A) 10.6 %; NRBC Per 100 WBC 0 /100 WBCS (0.0-0.0); Neutrophils # (A) 3.78 X 10*3/uL (1.80-7.70); Neutrophils % (A) 48.5 %; Platelet Count 167 X 10*3/uL (140-440); RBC 4.11 X 10*6/uL (4.40-5.60); RDW 13.3 % (11.5-14.5)
--- NOTE | 2022-04-08 13:37 | P.PN ---
Subjective Progress Note Date: 04/08/22 This is a 52-year-old male patient with a history of developmental delay. No history is able to be obtained from him. He resides in adult foster care. He is brought in here because of fevers. He was found to be COVID-19 positive. Chest x-ray reveals no acute pulmonary process. Blood cultures reveal no growth. White count 10.8. Hemoglobin 14.0. Platelets 173. Sodium 134. Potassium 4.3. BUN 12. Creatinine 0.72. AST 76. ALT 87. LDH 591. Kaiser virus by PCR positive. He's been initiated on Lovenox, Decadron, bronchodilators. He is currently seen in consultation in the emergency room. He sitting up in the bed. He responds yes to every question. Currently maintaining O2 saturations in the 90s on 2 L/m per nasal cannula. Normal sinus rhythm. 0.9 normal saline at KVO. Crackles noted in the bilateral bases. The patient is seen today in 04/08/2022 in follow-up on the regular medical floor. He is currently resting comfortably in bed. Awake and alert in no acute distress. He is maintaining O2 saturations in the 90s on 3 L/m per nasal cannula. D-dimer was within normal limits. The cultures reveal no growth to date. White count 7.8. Hemoglobin 12.8. D-dimer 0.29. Sodium 141. Potassium 3.9. Bicarb 27. BUN 11. Creatinine 0.75. Glucose 106. AST 58. ALT 58. He is continued on Decadron, Lovenox. Objective - Vital Signs Vital signs: Vital Signs Temp 98.7 F 04/08/22 07:22 Pulse 82 04/08/22 07:22 Resp 14 04/08/22 08:10 BP 131/88 04/08/22 07:22 Pulse Ox 94 L 04/08/22 07:22 FiO2 Intake & Output 04/07/22 04/08/22 04/08/22 18:59 06:59 18:59 Intake Total 10 450 Balance 10 450 Intake: IV 10 Invasive Line 1 10 Oral 450 Other: Voiding Method Bedside Commode Bedside Commode # Voids 1 1 - Exam GENERAL EXAM: Alert, developmentally delayed 52-year-old male, poor historian, on 3 L nasal cannula, comfortable in no apparent distress. HEAD: Normocephalic. EYES: Normal reaction of pupils, equal size. NOSE: Clear with pink turbinates. THROAT: No erythema or exudates. NECK: No masses, no JVD. CHEST: No chest wall deformity. LUNGS: Equal air entry with faint crackles in the posterior bases CVS: S1 and S2 normal with no audible murmur, regular rhythm. ABDOMEN: No hepatosplenomegaly, normal bowel sounds, no guarding or rigidity. SPINE: No scoliosis or deformity SKIN: No rashes CENTRAL NERVOUS SYSTEM: No focal deficits, tone is normal in all 4 extremities. EXTREMITIES: There is no peripheral edema. No clubbing, no cyanosis. Peripheral pulses are intact. - Labs CBC & Chem 7: 04/08/22 06:48 04/08/22 06:48 Labs: Abnormal Lab Results - Last 24 Hours (Table) 04/08/22 04/08/22 Range/Units 06:48 06:48 RBC 4.11 L (4.40-5.60) X 10*6/uL Hgb 12.8 L (13.0-17.0) g/dL Hct 38.0 L (39.6-50.0) % Glucose 106 H (74-99) mg/dL Calcium 8.0 L (8.4-10.2) mg/dL ALT 58 H (4-49) U/L C-Reactive Protein 6.5 H (<1.0) mg/dL Microbiology - Last 24 Hours (Table) 04/06/22 13:45 Blood Culture - Preliminary Blood No Growth after 24 hours 04/06/22 13:59 Blood Culture - Preliminary Blood No Growth after 24 hours Assessment and Plan Assessment: Febrile illness secondary to COVID-19 infection without COVID-19 pneumonia. Chest x-ray shows no acute pulmonary process. Currently afebrile. Developmental delay Resides in adult foster care History of gastroesophageal reflux disease History of hyperlipidemia History of autism History of scoliosis History of anxiety Nonsmoker Plan: The patient was seen and evaluated Labs and medications revealed Titrate the FiO2 as tolerated Continue bronchodilators Continue Decadron and Lovenox Probable discharge in the a.m. We'll continue to follow I have personally seen and examined the patient, performed the documentation and the assessment and plan as written. Number of minutes spent on the visit: 10.
--- NOTE | 2022-04-08 16:57 | P.PN ---
Progress Note - Text Progress Note Date: 04/08/22 This is a 52-year-old patient who follows with Dr. Sousa. Chronic stable medical conditions include GERD, hyperlipidemia, autism. mental age of approximately 6 years . patient's sister - the power of attorney recruiter. Sometimes goes without the BMs to 3 days. Normally walks around with a shuffled gait. Able to feed himself. Patient was sent in from the [facility] home with a fever of 106, congested cough,. No nausea vomiting diarrhea. Patient is admitted by my colleague from [facility]. 4 COVID 19 infection. Placed on dexamethasone and oxygen. April 07: I assumed care of the patient today. Laying in bed. Congested cough. Only thing he'll say " yup" noted,. Doesn't appear to be in distress. April 08: Oral intake fair. On dexamethasone. 3 L nasal cannula. No fever. Congested cough. Lactic the patient sit up in a chair. Active Medications Acetaminophen (Acetaminophen Tab 325 Mg Tab) 650 mg PO Q4HR PRN PRN Reason: Fever>101 Last Admin: 04/08/22 00:54 Dose: 650 mg Albuterol Sulfate (Albuterol Hfa Inhaler) 2 puff INHALATION RT-Q6H PRN PRN Reason: Shortness Of Breath Or Wheezing Last Admin: 04/07/22 07:18 Dose: 2 puff Alprazolam (Alprazolam 1 Mg Tab) 1 mg PO TID [facility] Last Admin: 04/08/22 08:17 Dose: 1 mg Atorvastatin Calcium (Atorvastatin 20 Mg Tab) 20 mg PO HS [facility] Last Admin: 04/07/22 22:57 Dose: 20 mg Carbamazepine (Carbamazepine Chew 100 Mg Chew) 300 mg PO BID@0600,1800 [facility] Last Admin: 04/08/22 05:53 Dose: 300 mg Dexamethasone (Dexamethasone 2 Mg Tab) 6 mg PO DAILY [facility] Last Admin: 04/08/22 08:17 Dose: 6 mg Docusate Sodium (Docusate 100 Mg Cap) 100 mg PO BID PRN PRN Reason: Constipation Enoxaparin Sodium (Enoxaparin 40 Mg/0.4 Ml Syringe) 40 mg SQ Q24HR [facility] Last Admin: 04/08/22 08:18 Dose: 40 mg Sodium Chloride (Saline 0.9%) 1,000 mls @ 75 mls/hr IV .[id number] [facility] Last Admin: 04/08/22 02:45 Dose: Not Given Ibuprofen (Ibuprofen 400 Mg Tab) 400 mg PO Q6HR PRN PRN Reason: Mild Pain or Fever > 100.5 Losartan Potassium (Losartan 50 Mg Tab) 50 mg PO DAILY [facility] Last Admin: 04/08/22 08:17 Dose: 50 mg Melatonin (Melatonin 3 Mg Tablet) 3 mg PO HS PRN PRN Reason: Insomnia Naloxone HCl (Naloxone 0.4 Mg/Ml 1 Ml Vial) 0.2 mg IV Q2M PRN PRN Reason: Opioid Reversal Ondansetron HCl (Ondansetron 4 Mg/2 Ml Vial) 4 mg IVP Q8HR PRN PRN Reason: Nausea And Vomiting Pantoprazole Sodium (Pantoprazole 40 Mg Tablet) 40 mg PO AC-BRKFST [facility] Last Admin: 04/08/22 05:52 Dose: 40 mg Risperidone (Risperidone 0.5 Mg Tab) 0.5 mg PO BID [facility] Last Admin: 04/08/22 08:18 Dose: 0.5 mg Trazodone HCl (Trazodone Hcl 100 Mg Tab) 100 mg PO HS@2100 [facility] Last Admin: 04/07/22 22:57 Dose: 100 mg Valproic Acid (Valproic Acid Oral Soln 250 Mg/5 Ml Cup) 1,000 mg PO BID@0600,1800 [facility] Last Admin: 04/08/22 05:53 Dose: 1,000 mg Physical examination: VITAL SIGNS: 97.2, 88, 18, 128 with 79, 96% on 3 L GENERAL: Laying in bed, awake , occasional congested cough LUNGS: Respiratory rate increased PSYCH: Doesn't answer questions but says yes and does follow simple commands. Rest of exam per pulmonary and nursing INVESTIGATIONS, reviewed in the clinical context: April 08: WBC 7.8 hemoglobin 12.8. D-dimer 0.29, potassium 3.9. CRP 6.5. Pro-calcitonin 0.17 White count 10.8 hemoglobin 14 platelets 173 potassium 4.3 creatinine 0.7 to lactic acid 2.1 AST 76 ALT 87 UA: Negative COVID 19 PCR: Detected Influenza type A/type B Chest x-ray reported negative Assessment and plan: -Acute COVID 19 pneumonitis, causing hypoxia Dexamethasone -Acute hypoxic respiratory failure secondary to COVID 19 On 2 L nasal cannula -Chronic constipation Laxative -Autism with a mental age of 6 -Anxiety not otherwise specified, with mood disorder Continue home medications including carbamazepine, Risperdal -GERD Protonix -Hyperlipidemia Lipitor, -Legal guardian is his sister Suzan leader [phone] Continue dexamethasone. Oxygen supplementation. Oral intake better. Check pulse ox on room air at the morning. Hopefully DC tomorrow.
[2022-04-08] MEDS: traZODone HCL 100 MG TAB PO SCH (20:42)
[2022-04-08] MEDS: ATORVASTATIN 20 MG TAB PO SCH (20:42)
[2022-04-09] MEDS: SODIUM CHLORIDE 0.9% 1,000 ML IV SCH (04:44)
[2022-04-09] MEDS: VALPROIC ACID ORAL SOLN 250 MG/5 ML CUP PO SCH (05:16)
[2022-04-09] MEDS: risperiDONE 0.5 MG TAB PO SCH (08:05)
[2022-04-09] MEDS: dexAMETHasone 2 MG TAB PO SCH (08:05)
[2022-04-09] MEDS: ENOXAPARIN 40 MG/0.4 ML SYRINGE SQ SCH (08:05)
[2022-04-09] MEDS: PANTOPRAZOLE 40 MG TABLET PO SCH (08:05)
[2022-04-09] MEDS: LOSARTAN 50 MG TAB PO SCH (08:06)
[2022-04-09 10:02] VITALS: BP 136/90; RESP 16; TEMP 98.4
[2022-04-09 10:13] VITALS: PULSE 85
--- NOTE | 2022-04-09 12:15 | P.PN ---
Subjective Progress Note Date: 04/09/22 This is a 52-year-old male patient with a history of developmental delay. No history is able to be obtained from him. He resides in adult foster care. He is brought in here because of fevers. He was found to be COVID-19 positive. Chest x-ray reveals no acute pulmonary process. Blood cultures reveal no growth. White count 10.8. Hemoglobin 14.0. Platelets 173. Sodium 134. Potassium 4.3. BUN 12. Creatinine 0.72. AST 76. ALT 87. LDH 591. Kaiser virus by PCR positive. He's been initiated on Lovenox, Decadron, bronchodilators. He is currently seen in consultation in the emergency room. He sitting up in the bed. He responds yes to every question. Currently maintaining O2 saturations in the 90s on 2 L/m per nasal cannula. Normal sinus rhythm. 0.9 normal saline at KVO. Crackles noted in the bilateral bases. The patient is seen today in 04/08/2022 in follow-up on the regular medical floor. He is currently resting comfortably in bed. Awake and alert in no acute distress. He is maintaining O2 saturations in the 90s on 3 L/m per nasal cannula. D-dimer was within normal limits. The cultures reveal no growth to date. White count 7.8. Hemoglobin 12.8. D-dimer 0.29. Sodium 141. Potassium 3.9. Bicarb 27. BUN 11. Creatinine 0.75. Glucose 106. AST 58. ALT 58. He is continued on Decadron, Lovenox. The patient is seen today 04/09/2022 in follow-up on the regular medical floor. He is currently resting in bed. Awake and alert. No acute distress. He is maintaining good O2 saturations in the 90s on room air. He's been afebrile. Hemodynamically stable. Blood cultures reveal no growth. No new labs today. Pro-calcitonin was 0.17. He is continued on Decadron, Lovenox. Objective - Vital Signs Vital signs: Vital Signs Temp 98.4 F 04/09/22 10:02 Pulse 88 04/09/22 10:02 Resp 16 04/09/22 10:02 BP 136/90 04/09/22 10:02 Pulse Ox 93 L 09/08/22 10:02 FiO2 Intake & Output 04/08/22 04/09/22 04/09/22 18:59 06:59 18:59 Intake Total 450 Balance 450 Weight 97.522 kg Intake: Oral 450 Other: Voiding Method Bedside Commode Bedside Commode Bedside Commode # Voids 3 2 - Exam GENERAL EXAM: Alert, developmentally delayed 52-year-old male, poor historian, on room air, comfortable in no apparent distress. HEAD: Normocephalic. EYES: Normal reaction of pupils, equal size. NOSE: Clear with pink turbinates. THROAT: No erythema or exudates. NECK: No masses, no JVD. CHEST: No chest wall deformity. LUNGS: Equal air entry with faint crackles in the posterior bases CVS: S1 and S2 normal with no audible murmur, regular rhythm. ABDOMEN: No hepatosplenomegaly, normal bowel sounds, no guarding or rigidity. SPINE: No scoliosis or deformity SKIN: No rashes CENTRAL NERVOUS SYSTEM: No focal deficits, tone is normal in all 4 extremities. EXTREMITIES: There is no peripheral edema. No clubbing, no cyanosis. Peripheral pulses are intact. - Labs CBC & Chem 7: 04/08/22 06:48 04/08/22 06:48 Labs: Abnormal Lab Results - Last 24 Hours (Table) 04/08/22 Range/Units 06:48 Procalcitonin 0.17 H (0.02-0.09) ng/mL Microbiology - Last 24 Hours (Table) 04/06/22 13:59 Blood Culture - Preliminary Blood No Growth after 48 hours 04/06/22 13:45 Blood Culture - Preliminary Blood No Growth after 48 hours Assessment and Plan Assessment: Febrile illness secondary to COVID-19 infection without COVID-19 pneumonia. Chest x-ray shows no acute pulmonary process. Currently afebrile. Pro calcitonin 0.17 Developmental delay Resides in adult foster care History of gastroesophageal reflux disease History of hyperlipidemia History of autism History of scoliosis History of anxiety Nonsmoker Plan: The patient was seen and evaluated Stable and on room air Cleared for discharge from the pulmonary standpoint I have personally seen and examined the patient, performed the documentation and the assessment and plan as written. Number of minutes spent on the visit: 10.
--- NOTE | 2022-04-09 12:59 | CDI ---
Documentation Clarification Form Date: 04/09/2022 12:49:50 PM From: Silva Wiseman CCS, CCDS Admit Date: 04/06/2022 08:48:00 PM Patient Name: Mario Alberto Bullock Visit Number: [id number] Discharge Date: ATTENTION: The Clinical Documentation Specialists (CDI) and [facility] Coding Staff appreciate your assistance in clarifying documentation. Please respond to the clarification below the line at the bottom and electronically sign. The CDI & [facility] Coding staff will review the response and follow-up if needed. Please note: Queries are made part of the Legal Health Record. If you have any questions, please contact the author of this message via ITS. Dr. Wilmar Rangel: Conflicting documentation has been found in the medical record. As attending physician, please provide clarification. Acute COVID 19 pneumonitis, causing hypoxia is documented in the 04/07 History & Physical and subsequent Attending Progress Notes. Febrile illness secondary to COVID infection without COVID 19 Pneumonia is documented in the 04/07 Pulmonary Consult and in subsequent Progress Notes. History/Risk Factors per the 04/06 H/P: GERD, Hyperlipidemia, Autism, Developmental Delay, Scoliosis, Anxiety. Clinical Indicators: Presented to the ED on 04/06 via EMS from an [facility] with congestion and fever. Admit with COVID-19 04/06 VS: T 100.7, P 98, R 18 (cough), BP 120/71, PO 92 RA, BMI: 35.8 04/06 LAB: WBC 10.8, [place] 1.5; Na 134, Glucose 132, Lactic Acid 2.1, AST 76, ALT 87 04/06 UA: clear 04/06 CXR: No acute cardiopulmonary disease/process. Repeat 04/06 CXR: No active cardiopulmonary disease. Normal heart. Treatment 04/06: Telemetry, Fall precautions, Pulmonary Consult, Blood cultures, O2, IV Rocephin 50 mls @ 100 mls/hr x1, IV Na Chl 500 mls @ 1000 mls/hr q35M, po Hexadrol 6 mg x1, INH Ventolin q6H/prn. Please clarify which diagnosis is most appropriate: [ ] COVID 19 with Pneumonia [ ] COVID 19 without Pneumonia [ ] Other (please specify) [ ] Unable to determine (Template Last Revised: September 2020) pneumonia from acute COVID-19 MTDD
--- NOTE | 2022-04-09 13:03 | CDI ---
Documentation Clarification Form Date: 04/09/2022 01:00:13 PM From: Silva Wiseman CCS, CCDS Admit Date: 04/06/2022 08:48:00 PM Patient Name: Mario Alberto Bullock Visit Number: [id number] Discharge Date: ATTENTION: The Clinical Documentation Specialists (CDI) and [facility] Coding Staff appreciate your assistance in clarifying documentation. Please respond to the clarification below the line at the bottom and electronically sign. The CDI & [facility] Coding staff will review the response and follow-up if needed. Please note: Queries are made part of the Legal Health Record. If you have any questions, please contact the author of this message via ITS. Dr. Wilmar Rangel: The patient presented with the following clinical indicators. Additional clarification regarding the etiology/cause of the clinical indicators is requested. History/Risk Factors per the 04/06 H/P: GERD, Hyperlipidemia, Autism, Developmental Delay, Scoliosis, Anxiety. Clinical Indicators: Presented to the ED on 04/06 via EMS [facility] with congestion and fever. Admit with COVID-19 04/06 VS: T 100.7, P 98, R 18 (cough), BP 120/71, PO 92 RA, BMI: 35.8 04/06 LAB: WBC 10.8, [place] 1.5; Na 134, Glucose 132, Lactic Acid 2.1, AST 76, ALT 87 04/06 UA: clear 04/06 Blood cultures x2: Preliminary, no growth after 48 hours. 04/06 CXR: No acute cardiopulmonary disease/process. Repeat 04/06 CXR: No active cardiopulmonary disease. Normal heart. Treatment 04/06: Telemetry, Fall precautions, Pulmonary Consult, Blood cultures, O2, IV Rocephin 50 mls @ 100 mls/hr x1, IV Na Chl 500 mls @ 1000 mls/hr q35M, po Hexadrol 6 mg x1, INH Ventolin q6H/prn. In your professional opinion, please clarify if these findings signify one of the following conditions: [ ] Sepsis POA [ ] Severe Sepsis with organ failure [ ] Other, please specify [ ] Unable to determine Possible sepsis, POA (Template Last Reviewed: September 2020) KEIKO
--- NOTE | 2022-04-09 17:24 | P.DS ---
Providers Date of admission: 04/06/22 20:48 Expected date of discharge: 04/09/22 Attending physician: Wilmar Rangel Consults: 04/06/22 23:59 Consult Physician Routine Consulting Provider: Low Cerna Consult Reason/Comments: covid Do you want consulting provider notified?: Yes, Notify in am Primary care physician: Derek Sousa [facility] Course: This is a 52-year-old patient who follows with Dr. Sousa. Chronic stable medical conditions include GERD, hyperlipidemia, autism. mental age of approximately 6 years . patient's sister - the power of business attorney. Sometimes goes without the BMs to 3 days. Normally walks around with a shuffled gait. Able to feed himself. Patient was sent in from the [facility] home with a fever of 106, congested cough,. No nausea vomiting diarrhea. Patient is admitted by my colleague from [facility]. 4 COVID 19 infection. Placed on dexamethasone and oxygen. April 07: I assumed care of the patient today. Laying in bed. Congested cough. Only thing he'll say " yup" noted,. Doesn't appear to be in distress. April 08: Oral intake fair. On dexamethasone. 3 L nasal cannula. No fever. Congested cough. Lactic the patient sit up in a chair. April 09: Doing well. Pulse ox: Room air. Eating well. Discharge. Physical examination: VITAL SIGNS: 98.4, 88, 16, 136 bun 90, 93% room air GENERAL: Up in bed, awake , looking comfortable LUNGS: Respiratory rate normal PSYCH: Answering simple questions Rest of exam per pulmonary and nursing INVESTIGATIONS, reviewed in the clinical context: April 08: WBC 7.8 hemoglobin 12.8. D-dimer 0.29, potassium 3.9. CRP 6.5. Pro-calcitonin 0.17 White count 10.8 hemoglobin 14 platelets 173 potassium 4.3 creatinine 0.7 to lactic acid 2.1 AST 76 ALT 87 UA: Negative COVID 19 PCR: Detected Influenza type A/type B Chest x-ray reported negative Assessment and plan: -Acute COVID 19 pneumonitis, causing hypoxia Dexamethasone -Acute hypoxic respiratory failure secondary to COVID 19: Improved -Chronic constipation Laxative -Autism with a mental age of 6 -Anxiety not otherwise specified, with mood disorder carbamazepine, Risperdal -GERD Protonix -Hyperlipidemia Lipitor, -Legal guardian is his sister Suzan leader [phone] Disposition: [facility] home Plan - Discharge Summary Discharge Rx Participant: Yes New Discharge Prescriptions: New guaiFENesin [Mucinex] 600 mg PO Q12H #30 tab Albuterol Inhaler [Ventolin Hfa Inhaler] 2 puff INHALATION RT-Q6H PRN #1 each PRN Reason: Shortness Of Breath Or Wheezing Continue Sennosides [Senna] 8.6 mg PO BID@0600,1800 Pantoprazole [Protonix] 40 mg PO DAILY@0600 Valproic Acid Oral Soln [Depakene Syrup] 1,000 mg PO BID@0600,1800 Acetaminophen Tab [Tylenol] 325 - 650 mg PO Q4-6H PRN PRN Reason: Fever/Pain/Headache polyethylene glycoL 3350 [Miralax] 17 gm PO Q3D@0600 Clotrimazole/Betamethasone Dip [Lotrisone Cream] 1 applic TOPICAL DAILY PRN PRN Reason: Groin Nystatin 100,000Unit/gm Cream [Mycostatin Cream] 1 applic TOPICAL BID PRN PRN Reason: groin Pramox-Calamine 1-8% Lotion [Caladryl] 1 applic TOPICAL DIRECTED PRN PRN Reason: INSECT BITES carBAMazepine [TEGretol Susp] 300 mg PO BID@0600,1800 [place]-3 Acid Ethyl Esters [Lovaza] 1 gm PO BID@0600,1800 Atorvastatin [Lipitor] 20 mg PO HS@1800 ALPRAZolam [Xanax] 1 mg PO TID@0600,1200,1700 Losartan [Cozaar] 50 mg PO DAILY@0600 traZODone HCL [Desyrel] 100 mg PO HS@2100 Eucerin Cream 1 applic TOPICAL DIRECTED PRN PRN Reason: Chapped lips & face Acetaminophen [Tylenol Arthritis] 650 mg PO BID@0600,1800 Cholecalciferol [Vitamin D3 (25 Mcg = 1000 Iu)] 50 mcg PO DAILY@0600 risperiDONE [RisperDAL] 0.5 mg PO BID@0600,1800 Hydrocortisone [Anusol-Hc] 1 applic RECTAL HS PRN PRN Reason: Hemorrhoids Discontinued Brompheniramine/Phenylephrine [Dimetapp Cold-Allergy Elixir] 20 ml PO Q4H PRN PRN Reason: Congestion guaiFENesin-DM 100-10MG/5ML [Robitussin DM] 10 ml PO Q4H PRN PRN Reason: Cough No Action [place] Blue Shampoo 1 applic TOPICAL DIRECTED PRN PRN Reason: Dry scalp/dandruff Solarcaine Cool Aloe 1 applic TOPICAL DIRECTED PRN PRN Reason: Sun Burn Discharge Medication List Sennosides [Senna] 8.6 mg PO BID@0600,1800 03/27/18 [History] Pantoprazole [Protonix] 40 mg PO DAILY@0600 04/12/18 [History] Valproic Acid Oral Soln [Depakene Syrup] 1,000 mg PO BID@0600,1800 09/20/18 [History] Acetaminophen Tab [Tylenol] 325 - 650 mg PO Q4-6H PRN 11/09/18 [History] Clotrimazole/Betamethasone Dip [Lotrisone Cream] 1 applic TOPICAL DAILY PRN 11/09/18 [History] polyethylene glycoL 3350 [Miralax] 17 gm PO Q3D@0611/09/18 [History] Nystatin 100,000Unit/gm Cream [Mycostatin Cream] 1 applic TOPICAL BID PRN 07/03/19 [History] Pramox-Calamine 1-8% Lotion [Caladryl] 1 applic TOPICAL DIRECTED PRN 07/03/19 [History] carBAMazepine [TEGretol Susp] 300 mg PO BID@0600,1800 07/03/19 [History] ALPRAZolam [Xanax] 1 mg PO TID@0600,1200,1700 04/26/21 [History] Atorvastatin [Lipitor] 20 mg PO HS@179904/26/21 [History] [place]-3 Acid Ethyl Esters [Lovaza] 1 gm PO BID@0600,1800 04/26/21 [History] Selsun Blue Shampoo 1 applic TOPICAL DIRECTED PRN 04/26/21 [History] Acetaminophen [Tylenol Arthritis] 650 mg PO BID@0600,1800 04/06/22 [History] Cholecalciferol [Vitamin D3 (25 Mcg = 1000 Iu)] 50 mcg PO DAILY@0600 04/06/22 [History] Eucerin Cream 1 applic TOPICAL DIRECTED PRN 04/06/22 [History] Hydrocortisone [Anusol-Hc] 1 applic RECTAL HS PRN 04/06/22 [History] Losartan [Cozaar] 50 mg PO DAILY@0600 04/06/22 [History] Solarcaine Cool [place] 1 applic TOPICAL DIRECTED PRN 04/06/22 [History] risperiDONE [RisperDAL] 0.5 mg PO BID@0600,1800 04/06/22 [History] traZODone HCL [Desyrel] 100 mg PO HS@2100 04/06/22 [History] Albuterol Inhaler [Ventolin Hfa Inhaler] 2 puff INHALATION RT-Q6H PRN #1 each 04/09/22 [Rx] guaiFENesin [Mucinex] 600 mg PO Q12H #30 tab 04/09/22 [Rx] Follow up Appointment(s)/Referral(s): Derek Sousa MD [Primary Care Provider] - 1-2 days (Office closed at time of discharge. Please call office to make an appointment) Patient Instructions/Handouts: Coronavirus Disease 2019 (COVID-19) Activity/Diet/Wound Care/Special Instructions: Patient she returns as any difficulty breathing or shortness of breath. Patient should be taking Tylenol Motrin when necessary for fever.
== END 2022-04-09 15:23 | disposition home or self-care (01) | DRG 871 ==
LOC: EEVIPCON 12:57 → EC 12:57 → 4SSUR 20:48
PROVIDERS: ADMIT Hospitalist; ATTEND Hospitalist
PROC: 8E0ZXY6 Isolation (ICD-10-PCS; principal; 2022-04-06)
DX: A41.89 Other specified sepsis (principal); J12.82 Pneumonia due to coronavirus disease 2019; U07.1 COVID-19; J96.01 Acute respiratory failure with hypoxia; F84.0 Autistic disorder; E87.2 Acidosis; K21.9 Gastro-esophageal reflux disease without esophagitis; E78.5 Hyperlipidemia, unspecified; M41.9 Scoliosis, unspecified; R26.89 Other abnormalities of gait and mobility; F41.9 Anxiety disorder, unspecified; R62.50 Unspecified lack of expected normal physiological development in childhood; K59.09 Other constipation; F39 Unspecified mood [affective] disorder; Z79.899 Other long term (current) drug therapy; Z83.3 Family history of diabetes mellitus
CPT/HCPCS: 36415; 71045; 71046; 80053; 81003; 82728; 83605; 83615; 83735; 83880; 84145; 84484; 85025; 85379; 85384; 85610; 85730; 86140; 87040; 87635; 93005; 94640; 96361; 96365; 99285

== ENCOUNTER 2023-02-12 17:08 | Emergency (ER) | payer MEDICARE, OTHER ==
[2023-02-12 17:45] VITALS: TEMP 98
[2023-02-12 19:00] LABS: Appearance,Urine Clear (Clear); Bilirubin,Urine Negative (Negative); Blood,Urine Negative (Negative); Color,Urine Yellow; Glucose,Urine (UA) Negative (Negative); Ketones,Urine Negative (Negative); Leukocyte Esterase,Urine Negative (Negative); Nitrite,Urine Negative (Negative); Protein,Urine Negative (Negative); Specific Gravity,Urine 1.012 (1.001-1.035); Urobilinogen,Urine <2.0 mg/dL (<2.0)
--- NOTE | 2023-02-12 19:19 | ED ---
Male Urogenital HPI - General Chief complaint: Urogenital Stated complaint: Blood in Urine Time Seen by Provider: 02/12/23 19:06 Source: patient, Caregiver Mode of arrival: ambulatory Limitations: altered mental status, physical limitation - History of Present Illness Initial comments: 52-year-old male with history of developmental delay presenting with his caregiver from his [place] [facility] for concerns for possible hematuria. Caregiver states that today there was urine on the patient's sheets which was very dark, concerning for blood in the urine. Patient has been acting himself today. No changes in activity level. No vomiting or fevers. No indications of abdominal pain, however given the patient's communication barriers it is difficult to tell . - Related Data Home Medications Medication Instructions Recorded Confirmed Sennosides [Senna] 8.6 mg PO BID@0600,1800 03/27/18 04/06/22 Pantoprazole [Protonix] 40 mg PO DAILY@0600 04/12/18 04/06/22 Valproic Acid Oral Soln [Depakene 1,000 mg PO BID@0600,1800 09/20/18 04/06/22 Syrup] Acetaminophen Tab [Tylenol] 325 - 650 mg PO Q4-6H PRN 11/09/18 04/06/22 Clotrimazole/Betamethasone Dip 1 applic TOPICAL DAILY PRN 11/09/18 04/06/22 [Lotrisone Cream] polyethylene glycoL 3350 [Miralax] 17 gm PO Q3D@0600 11/09/18 04/06/22 Nystatin 100,000Unit/gm Cream 1 applic TOPICAL BID PRN 07/03/19 04/06/22 [Mycostatin Cream] Pramox-Calamine 1-8% Lotion 1 applic TOPICAL DIRECTED PRN 07/03/19 04/06/22 [Caladryl] carBAMazepine [TEGretol Susp] 300 mg PO BID@0600,1800 07/03/19 04/06/22 ALPRAZolam [Xanax] 1 mg PO TID@0600,1200,1700 04/26/21 04/06/22 Atorvastatin [Lipitor] 20 mg PO HS@1800 04/26/21 04/06/22 [place]-3 Acid Ethyl Esters [Lovaza] 1 gm PO BID@0600,1800 04/26/21 04/06/22 Selsun Blue Shampoo 1 applic TOPICAL DIRECTED PRN 04/26/21 04/06/22 Acetaminophen [Tylenol Arthritis] 650 mg PO BID@0600,1800 04/06/22 04/06/22 Cholecalciferol [Vitamin D3 (25 50 mcg PO DAILY@0600 04/06/22 04/06/22 Mcg = 1000 Iu)] Eucerin Cream 1 applic TOPICAL DIRECTED PRN 04/06/22 04/06/22 Hydrocortisone [Anusol-Hc] 1 applic RECTAL HS PRN 04/06/22 04/06/22 Losartan [Cozaar] 50 mg PO DAILY@0600 04/06/22 04/06/22 Solarcaine Cool [place] 1 applic TOPICAL DIRECTED PRN 04/06/22 04/06/22 risperiDONE [RisperDAL] 0.5 mg PO BID@0600,1800 04/06/22 04/06/22 traZODone HCL [Desyrel] 100 mg PO HS@2100 04/06/22 04/06/22 Previous Rx's Medication Instructions Recorded Albuterol Inhaler [Ventolin Hfa 2 puff INHALATION RT-Q6H PRN #1 04/09/22 Inhaler] each guaiFENesin [Mucinex] 600 mg PO Q12H #30 tab 04/09/22 Allergies Allergy/AdvReac Type Severity Reaction Status Date / Time No Known Allergies Allergy Verified 02/12/23 17:45 Review of Systems ROS Statement: Those systems with pertinent positive or pertinent negative responses have been documented in the HPI. ROS Other: All systems not noted in ROS Statement are negative. Past Medical History Past Medical History: GERD/Reflux, Hyperlipidemia Additional Past Medical History / Comment(s): AUTISM, MENTALLY LIKE A 6 YEAR OLD.,NON-VERBAL (WILL ANSWER YES TO ALL QUESTIONS).,SCOLIOSIS, SCHUFFLES WHEN HE WALKS., RESIDES AT [facility] (PHONE # [phone]).. History of Any Multi-Drug Resistant Organisms: None Reported Additional Past Surgical History / Comment(s): HEMORROIDECTOMY, EGD WITH ANESTHESIA. Past Anesthesia/Blood Transfusion Reactions: No Reported Reaction Past Psychological History: Anxiety Smoking Status: Never smoker Past Alcohol Use History: None Reported Past Drug Use History: None Reported - Past Family History Sister(s) Family Medical History: Cancer Additional Family Medical History / Comment(s): recently Mother Family Medical History: Diabetes Mellitus Father Family Medical History: Cancer Additional Family Medical History / Comment(s): BONE AND LIVER General Exam Limitations: altered mental status, physical limitation General appearance: alert, in no apparent distress Head exam: Present: atraumatic, normocephalic, normal inspection Eye exam: Present: normal appearance Neck exam: Present: normal inspection, full ROM Respiratory exam: Present: normal lung sounds bilaterally. Absent: respiratory distress, wheezes, rales, rhonchi, stridor Cardiovascular Exam: Present: regular rate, normal rhythm, normal heart sounds. Absent: systolic murmur, diastolic murmur, rubs, gallop, clicks GI/Abdominal exam: Present: soft. Absent: distended, tenderness, guarding, rebound, rigid Neurological exam: Present: alert, altered (baseline) Psychiatric exam: Present: normal affect, normal mood Skin exam: Present: warm, dry, intact, normal color. Absent: rash Course Vital Signs 02/12/23 17:41 Temperature 98.0 F Pulse Rate 67 Respiratory 20 Rate Blood Pressure 159/89 O2 Sat by Pulse 99 Oximetry Medical Decision Making - Medical Decision Making Was pt. sent in by a medical professional or institution (Dr. PA, MARINE EQUIPMENT RESEARCH ENGINEER, urgent care, hospital, or [place] [facility]...) When possible be specific @ -No Did you speak to anyone other than the patient for history (EMS, parent, family, police, friend...)? What history was obtained from this source @ -History obtained from caregiver Did you review nursing and triage notes (agree or disagree)? Why? @ -I reviewed and agree with nursing and triage notes Were old charts reviewed (outside hosp., previous admission, EMS record, old EKG, old radiological studies, urgent care reports/EKG's, [place] [facility] records)? Report findings @ -No old charts were reviewed Differential Diagnosis (chest pain, altered mental status, abdominal pain women, abdominal pain men, vaginal bleeding, weakness, fever, dyspnea, syncope, headache, dizziness, GI bleed, back pain, seizure, CVA, palpatations, mental health, musculoskeletal)? @ -Differential includes UTI, painless hematuria, kidney stone, malignancy, this is not an all inclusive list EKG interpreted by me (3pts min.). @ -As above X-rays interpreted by me (1pt min.). @ -None done CT interpreted by me (1pt min.). @ -None done U/S interpreted by me (1pt. min.). @ -None done What testing was considered but not performed or refused? (CT, X-rays, U/S, labs)? Why? @ -None What meds were considered but not given or refused? Why? @ -None Did you discuss the management of the patient with other professionals (professionals i.e. DrJeffrey, PA, MARINE EQUIPMENT RESEARCH ENGINEER, lab, RT, psych nurse, social work case manager, retoucher, teacher, first officer and flight instructor, machine adjuster leader case trim)? Give summary @ -No Was smoking cessation discussed for >3mins.? @ -No Was critical care preformed (if so, how long)? @ -No Were there social determinants of health that impacted care today? How? (Homelessness, low income, unemployed, alcoholism, drug addiction, transportation, low edu. Level, literacy, decrease access to med. care, correction, rehab)? @ -No Was there de-escalation of care discussed even if they declined (Discuss DNR or withdrawal of care, Hospice)? DNR status @ -No What co-morbidities impacted this encounter? (DM, HTN, Smoking, COPD, CAD, Cancer, CVA, ARF, Chemo, Hep., AIDS, mental health diagnosis, sleep apnea, morbid obesity)? @ -None Was patient admitted / discharged? Hospital course, mention meds given and route, prescriptions, significant lab abnormalities, going to OR and other pertinent info. @ -52-year-old male with autism presents with caregiver from the [place] [facility] for suspected hematuria. Today there was dark urine on his sheets that looked concerning for possible blood. Patient is having no indications of pain, physical examination is unremarkable. No vomiting or fevers. Urine shows no blood or leukocytes. Caregiver is educated on today's findings. He is told that the patient should follow-up with his PCP within the next week for a urine recheck. Follow-up with PCP. Report back to ER with any new or worsening symptoms. Discussed return parameters and answered all questions. Patient conveyed verbal understanding and agreed to the plan. I discussed this case in detail with my attending Dr. Beckford Undiagnosed new problem with uncertain prognosis? @ -No Drug Therapy requiring intensive monitoring for toxicity (Heparin, Nitro, Insulin, Cardizem)? @ -No Were any procedures done? @ -No Diagnosis/symptom? @ -urine discoloration Acute, or Chronic, or Acute on Chronic? @ -Acute Uncomplicated (without systemic symptoms) or Complicated (systemic symptoms)? @ -Uncomplicated Side effects of treatment? @ -No Exacerbation, Progression, or Severe Exacerbation? @ -No Poses a threat to life or bodily function? How? (Chest pain, USA, MA, pneumonia, PE, COPD, DKA, ARF, appy, cholecystitis, CVA, Diverticulitis, Homicidal, Suicidal, threat to staff... and all critical care pts) @ -No - Lab Data Lab Results 02/12/23 Range/Units 18:45 Urine Color Yellow Urine Appearance Clear (Clear) Urine pH 6.0 (5.0-8.0) Ur Specific [place] 1.012 (1.001-1.035) Urine Protein Negative (Negative) Urine Glucose (UA) Negative (Negative) Urine Ketones Negative (Negative) Urine Blood Negative (Negative) Urine Nitrite Negative (Negative) Urine Bilirubin Negative (Negative) Urine Urobilinogen <2.0 (<2.0) mg/dL Ur Leukocyte Esterase Negative (Negative) Disposition Clinical Impression: Urine discoloration Disposition: HOME SELF-CARE Condition: Good Instructions (If sedation given, give patient instructions): Hematuria (ED) Additional Instructions: Follow-up with PCP for urine recheck within the next week. Report back to ER with any new or worsening symptoms. Is patient prescribed a controlled substance at d/c from ED?: No Referrals: Derek Sousa MD [Primary Care Provider] - 02/15/23 Time of Disposition: 19:19
[2023-02-12 20:50] VITALS: BP 138/74; PULSE 72; RESP 18
== END 2023-02-12 19:40 | disposition home or self-care (01) ==
LOC: EC 17:08
DX: R82.998 Other abnormal findings in urine (principal); K21.9 Gastro-esophageal reflux disease without esophagitis; E78.5 Hyperlipidemia, unspecified; F41.9 Anxiety disorder, unspecified; Z79.899 Other long term (current) drug therapy
CPT/HCPCS: 81003; 99283

== ENCOUNTER → 2023-03-24 | Outpatient (CLI) | payer MEDICARE, OTHER ==
--- NOTE | 2023-03-26 17:45 | CT ---
EXAMINATION TYPE: CT urogram wo/w con DATE OF EXAM: 03/24/2023 COMPARISON: 04/26/2021 HISTORY: 53-year-old male R31.0, gross hematuria x 2 months TECHNIQUE: Contiguous axial scanning of the abdomen and pelvis performed without and with IV Contrast , patient injected with 100 mL of Isovue 300. Delayed images through the kidneys and bladder were obt ained. Coronal/sagittal reconstructions performed. 3-D reconstructions generated on a dedicated [employer] workstation. CT DLP: 4103.6 mGycm Automated exposure control for dose reduction was used. FINDINGS: Heart is normal size of a pericardial effusion. Lung bases clear without pleural effusion. Mild bilat eral gynecomastia. Liver enlarged at 20.0 cm. There may be mild fatty infiltration. No focal liver lesion. Portal venous system is patent. No biliary ductal dilatation. Gallbladder, adrenal glands, spleen with anterior splenules, and pancreas within normal limits. Kidneys show no nephrolithiasis or hydronephrosis. No abnormal kidney lesion. No filling defect withi n the renal collecting systems. Only short segments of the distal third ureters remain nonopacified l imiting their evaluation. No evident abnormality is seen. No dilated small bowel, free fluid, or free air. No mesenteric or retroperitoneal lymphadenopathy. Normal appendix. Mild stool burden. Redundant sigmoid colon. No pericolonic inflammatory change. Mild circumferential bladder wall thickening. Prostate gland is enlarged at 4.9 cm wide with central calcification. Left-sided pelvic phlebolith. No abnormal fluid collection in the pelvis or pelvic lym phadenopathy. Levoconvex scoliosis of the lumbar spine. IMPRESSION: 1. NO NEPHROLITHIASIS OR HYDRONEPHROSIS. NO SUSPICIOUS RENAL MASS OR COLLECTING SYSTEM LESION. 2. MILD PROSTATOMEGALY OF 4.9 CM WIDE. MILD CIRCUMFERENTIAL BLADDER WALL THICKENING PROBABLY RELATES TO CHRONIC BLADDER WALL HYPERTROPHY.
== END | disposition home or self-care (01) ==
LOC: RADCTMAIN 15:05
PROVIDERS: ATTEND Urology
DX: N40.0 Benign prostatic hyperplasia without lower urinary tract symptoms (principal); R31.0 Gross hematuria
CPT/HCPCS: 74178; 74400; Q9967

== ENCOUNTER 2024-07-23 09:18 | Emergency (ER) | payer MEDICARE, OTHER ==
[2024-07-23 09:34] VITALS: RESP 16
[2024-07-23] MEDS: ACETAMINOPHEN TAB 500 MG TAB PO STA (09:42)
--- NOTE | 2024-07-23 09:49 | ED ---
General Adult HPI - General Stated complaint: fever Time Seen by Provider: 07/23/24 09:23 Source: patient, EMS, RN notes reviewed Mode of arrival: EMS Limitations: no limitations - History of Present Illness Initial comments: 54-year-old male presents emergency department from [facility] home for evaluation of fever. There is been reports within the household of other sick contacts. Patient has not received any acetaminophen or ibuprofen patient has mild cough mild congestion along with a fever. He has no other complaints information is very limited. - Related Data Home Medications Medication Instructions Recorded Confirmed Sennosides [Senna] 8.6 mg PO BID@0600,1800 03/27/18 04/06/22 Pantoprazole [Protonix] 40 mg PO DAILY@0600 04/12/18 04/06/22 Valproic Acid Oral Soln [Depakene 1,000 mg PO BID@0600,1800 09/20/18 04/06/22 Syrup] Acetaminophen Tab [Tylenol] 325 - 650 mg PO Q4-6H PRN 11/09/18 04/06/22 Clotrimazole/Betamethasone Dip 1 applic TOPICAL DAILY PRN 11/09/18 04/06/22 [Lotrisone Cream] polyethylene glycoL 3350 [Miralax] 17 gm PO Q3D@0600 11/09/18 04/06/22 Nystatin 100,000Unit/gm Cream 1 applic TOPICAL BID PRN 07/03/19 04/06/22 [Mycostatin Cream] Pramox-Calamine 1-8% Lotion 1 applic TOPICAL DIRECTED PRN 07/03/19 04/06/22 [Caladryl] carBAMazepine [TEGretol Susp] 300 mg PO BID@0600,1800 07/03/19 04/06/22 ALPRAZolam [Xanax] 1 mg PO TID@0600,1200,1700 04/26/21 04/06/22 Atorvastatin [Lipitor] 20 mg PO HS@1800 04/26/21 04/06/22 [place]-3 Acid Ethyl Esters [Lovaza] 1 gm PO BID@0600,1800 04/26/21 04/06/22 S[place]un Blue Shampoo 1 applic TOPICAL DIRECTED PRN 04/26/21 04/06/22 Acetaminophen [Tylenol Arthritis] 650 mg PO BID@0600,1800 04/06/22 04/06/22 Cholecalciferol [Vitamin D3 (25 50 mcg PO DAILY@0600 04/06/22 04/06/22 Mcg = 1000 Iu)] Eucerin Cream 1 applic TOPICAL DIRECTED PRN 04/06/22 04/06/22 Hydrocortisone [Anusol-Hc] 1 applic RECTAL HS PRN 04/06/22 04/06/22 Losartan [Cozaar] 50 mg PO DAILY@0600 04/06/22 04/06/22 Solarcaine Cool Aloe 1 applic TOPICAL DIRECTED PRN 04/06/22 04/06/22 risperiDONE [RisperDAL] 0.5 mg PO BID@0600,1800 04/06/22 04/06/22 traZODone HCL [Desyrel] 100 mg PO HS@2100 04/06/22 04/06/22 Previous Rx's Medication Instructions Recorded Albuterol Inhaler [Ventolin Hfa 2 puff INHALATION RT-Q6H PRN #1 04/09/22 Inhaler] each guaiFENesin [Mucinex] 600 mg PO Q12H #30 tab 04/09/22 Allergies Allergy/AdvReac Type Severity Reaction Status Date / Time No Known Allergies Allergy Verified 07/23/24 09:22 Review of Systems ROS Statement: Those systems with pertinent positive or pertinent negative responses have been documented in the HPI. ROS Other: All systems not noted in ROS Statement are negative. Past Medical History Past Medical History: GERD/Reflux, Hyperlipidemia Additional Past Medical History / Comment(s): AUTISM, MENTALLY LIKE A 6 YEAR OLD.,NON-VERBAL (WILL ANSWER YES TO ALL QUESTIONS).,SCOLIOSIS, SCHUFFLES WHEN HE WALKS., RESIDES AT [facility] (PHONE # [phone]).. History of Any Multi-Drug Resistant Organisms: None Reported Additional Past Surgical History / Comment(s): HEMORROIDECTOMY, EGD WITH ANESTHESIA. Past Anesthesia/Blood Transfusion Reactions: No Reported Reaction Past Psychological History: Anxiety Smoking Status: Never smoker Past Alcohol Use History: None Reported Past Drug Use History: None Reported - Past Family History Sister(s) Family Medical History: Cancer Additional Family Medical History / Comment(s): recently Mother Family Medical History: Diabetes Mellitus Father Family Medical History: Cancer Additional Family Medical History / Comment(s): BONE AND LIVER General Exam Limitations: no limitations General appearance: alert, in no apparent distress Head exam: Present: atraumatic, normocephalic, normal inspection Eye exam: Present: normal appearance, PERRL, EOMI. Absent: scleral icterus, conjunctival injection, periorbital swelling ENT exam: Present: normal exam, normal oropharynx, mucous membranes moist Neck exam: Present: normal inspection, full ROM. Absent: tenderness, meningismus, lymphadenopathy Respiratory exam: Present: normal lung sounds bilaterally. Absent: respiratory distress, wheezes, rales, rhonchi, stridor Cardiovascular Exam: Present: normal rhythm, tachycardia, normal heart sounds. Absent: systolic murmur, diastolic murmur, rubs, gallop, clicks GI/Abdominal exam: Present: soft, normal bowel sounds. Absent: distended, tenderness, guarding, rebound, rigid Course Vital Signs 07/23/24 07/23/24 07/23/24 09:22 09:44 10:41 Temperature 100.5 F H 100.8 F H Pulse Rate 101 H 107 H 92 Respiratory 16 16 16 Rate Blood Pressure 125/100 139/89 136/110 O2 Sat by Pulse 93 L 94 L 95 Oximetry 07/23/24 07/23/24 11:02 11:27 Temperature 99.6 F Pulse Rate 95 92 Respiratory 16 16 Rate Blood Pressure 122/89 135/125 O2 Sat by Pulse 94 L 95 Oximetry Medical Decision Making - Medical Decision Making Was pt. sent in by a medical professional or institution (Dr. PA, JAVA ENGINEER, urgent care, hospital, or long-term...) When possible be specific @ -No Did you speak to anyone other than the patient for history (EMS, parent, family, police, friend...)? What history was obtained from this source @ -No Did you review nursing and triage notes (agree or disagree)? Why? @ -I reviewed and agree with nursing and triage notes Were old charts reviewed (outside hosp., previous admission, EMS record, old EKG, old radiological studies, urgent care reports/EKG's, long-term records)? Report findings @ -No old charts were reviewed Differential Diagnosis (chest pain, altered mental status, abdominal pain women, abdominal pain men, vaginal bleeding, weakness, fever, dyspnea, syncope, headache, dizziness, GI bleed, back pain, seizure, CVA, palpatations, mental health, musculoskeletal)? @ -COVID 19, RSV, influenza, pneumonia, acute bronchitis, URI, this list is not all inclusive EKG interpreted by me (3pts min.). @ -None X-rays interpreted by me (1pt min.). @ -This x-ray shows no acute cardiopulmonary process CT interpreted by me (1pt min.). @ -None done U/S interpreted by me (1pt. min.). @ -None done What testing was considered but not performed or refused? (CT, X-rays, U/S, labs)? Why? @ -None What meds were considered but not given or refused? Why? @ -None Did you discuss the management of the patient with other professionals (professionals i.e. , PA, JAVA ENGINEER, lab, RT, psych nurse, social media content specialist, interceptor operator, teacher, interface control officer, egg caser)? Give summary @ -No Was smoking cessation discussed for >3mins.? @ -No Was critical care preformed (if so, how long)? @ -No Were there social determinants of health that impacted care today? How? (Homelessness, low income, unemployed, alcoholism, drug addiction, transportation, low edu. Level, literacy, decrease access to med. care, senior care, rehab)? @ -No Was there de-escalation of care discussed even if they declined (Discuss DNR or withdrawal of care, Hospice)? DNR status @ -No What co-morbidities impacted this encounter? (DM, HTN, Smoking, COPD, CAD, Cancer, CVA, ARF, Chemo, Hep., AIDS, mental health diagnosis, sleep apnea, morbid obesity)? @ -None Was patient admitted / discharged? Hospital course, mention meds given and route , prescriptions, significant lab abnormalities, going to OR and other pertinent info. @ -Discharge patient is well-appearing vitals stable other than fever patient has no complaints other than mild URI symptoms negative workup patient discharged in stable condition return parameters david. Undiagnosed new problem with uncertain prognosis? @ -No Drug Therapy requiring intensive monitoring for toxicity (Heparin, Nitro, Insulin, Cardizem)? @ -No Were any procedures done? @ -No Diagnosis/symptom? @ -[Viral infection URI Acute, or Chronic, or Acute on Chronic? @ -Acute Uncomplicated (without systemic symptoms) or Complicated (systemic symptoms)? @ -Uncomplicated Side effects of treatment? @ -No Exacerbation, Progression, or Severe Exacerbation? @ -No Poses a threat to life or bodily function? How? (Chest pain, USA, LA, pneumonia, PE, COPD, DKA, ARF, appy, cholecystitis, CVA, Diverticulitis, Homicidal, Suicidal, threat to staff... and all critical care pts) @ -No - Lab Data Lab Results 07/23/24 07/23/24 Range/Units 09:39 10:58 Urine Color Yellow Urine Appearance Clear (Clear) Urine pH 7.5 (5.0-8.0) Ur Specific [place] 1.018 (1.001-1.035) Urine Protein Negative (Negative) Urine Glucose (UA) Negative (Negative) Urine Ketones Negative (Negative) Urine Blood Negative (Negative) Urine Nitrite Negative (Negative) Urine Bilirubin Negative (Negative) Urine Urobilinogen <2.0 (<2.0) mg/dL Ur Leukocyte Esterase Negative (Negative) Influenza Type A (PCR) Not Detected (Not Detectd) Influenza Type B (PCR) Not Detected (Not Detectd) RSV (PCR) Not Detected (Not Detectd) SARS-CoV-2 (PCR) Not Detected (Not Detectd) Disposition Clinical Impression: Viral URI Disposition: HOME SELF-CARE Condition: Stable Instructions (If sedation given, give patient instructions): Fever in Adults (ED) Additional Instructions: Please return to the Emergency Department if symptoms worsen or any other conc erns. Is patient prescribed a controlled substance at d/c from ED?: No Referrals: None,Stated [REFERRING] - 1-2 days Time of Disposition: 11:17
--- NOTE | 2024-07-23 09:52 | XR ---
Chest, 2 view. HISTORY: Fever COMPARISON: 04/06/2022 TECHNIQUE: PA and lateral views the chest are obtained. FINDINGS: There is mild diffuse interstitial prominence which was seen on the prior study and most likely refle cts mild chronic interstitial changes. There is no airspace consolidation. There is no pleural effusion or pneumothorax. The heart, pulmonary vasculature, mediastinum and shilpa appear normal. The osseous structures are intact. IMPRESSION: Mild chronic interstitial prominence which most likely is chronic in nature and is unchanged compared to prior study. There is no definite acute cardiopulmonary disease. [facility], Workstation: [facility], 07/23/2024 9:50 AM
[2024-07-23 11:09] LABS: Appearance,Urine Clear (Clear); Bilirubin,Urine Negative (Negative); Blood,Urine Negative (Negative); Color,Urine Yellow; Glucose,Urine (UA) Negative (Negative); Ketones,Urine Negative (Negative); Leukocyte Esterase,Urine Negative (Negative); Nitrite,Urine Negative (Negative); PH, Urine 7.5 (5.0-8.0); Protein,Urine Negative (Negative); Specific Gravity,Urine 1.018 (1.001-1.035); Urobilinogen,Urine <2.0 mg/dL (<2.0)
[2024-07-23] MEDS: IBUPROFEN 600 MG TAB PO STA (11:23)
[2024-07-23 11:32] VITALS: BP 135/125; PULSE 92; TEMP 99.6
== END 2024-07-23 11:38 | disposition home or self-care (01) ==
LOC: EC 09:18
DX: J06.9 Acute upper respiratory infection, unspecified (principal)
CPT/HCPCS: 71046; 81003; 87636; 99284